=== PATIENT | female | born 1935 | race Caucasian/White ===

== ENCOUNTER → 2017-12-06 | Outpatient (CLI) | payer MEDICARE, BC ==
--- NOTE | 2017-12-08 07:09 | MM ---
Reason for exam: screening (asymptomatic). Last mammogram was performed 1 year and 1 month ago. History: Patient is postmenopausal and history of other cancer. Took estrogen for 15 years beginning at age 46. Took progesterone for 15 years beginning at age 46. Physical Findings: A clinical breast exam by your physician is recommended on an annual basis and results should be correlated with mammographic findings. MG 3D Screening Mammo W/Cad Bilateral CC and MLO view(s) were taken. XCCL view(s) were taken of the right breast. Prior study comparison: October 21, 2016, bilateral MG 3d screening mammo w/cad. September 23, 2015, bilateral MG screening mammo w CAD. No significant changes when compared with prior studies. ASSESSMENT: Benign, BI-RAD 2 RECOMMENDATION: Routine screening mammogram of both breasts in 1 year.
== END | disposition home or self-care (01) ==
LOC: RADMAMWWP 15:29
PROVIDERS: ATTEND Internal Medicine Geriatric Medicine
DX: Z12.31 Encounter for screening mammogram for malignant neoplasm of breast (principal)
CPT/HCPCS: 77063; 77067

== ENCOUNTER → 2018-06-28 | Outpatient (CLI) | payer MEDICARE, BC ==
--- NOTE | 2018-06-28 15:08 | CT ---
EXAMINATION TYPE: CT angio neck DATE OF EXAM: 06/28/2018 HISTORY: Carotid stenosis COMPARISON: None CT DLP: 326 mGycm. Automated Exposure Control for Dose Reduction was Utilized. TECHNIQUE: CTA scan of the neck is performed with IV Contrast, patient injected with 65 mL of Isovue 370, axial images are obtained, coronal and sagittal reformatted images are reviewed. Three-D recons tructed images are created on an independent workstation and reviewed. FINDINGS: Beam hardening artifact is present at the level of the mandible limiting this evaluation. Carotid/Vascular Structures: Left carotid: The left common carotid artery bifurcates into internal and external carotid arteries. The internal carotid artery extends to the skull base. The carotid bifurcation is unremarkable. No st enosis at the internal carotid arteries evident. Right carotid: Right common carotid artery is nearly obstructed at its origin. Small amount of contra st does appear to be present within the external carotid artery on the right suggesting there may be some minimal flow within the proximal portion of the carotid artery. No internal carotid artery flow is evident however. Some minimal retrograde flow is likely present at the skull base. Internal caroti d artery bifurcation is out of the [id number] on this exam. Vertebral arteries: The bilateral vertebral arteries are patent. IMPRESSION: 1. Patent bilateral vertebral arteries. 2. Patent left common carotid artery with a normal carotid bifurcation. Patent left internal carotid artery extends to the skull base. 3. Nearly completely obstructed common carotid artery on the right which terminates in the external c arotid artery on the right. No internal carotid artery flow is present on the right. 4. Some retrograde flow is likely present at the skull base within the distal right internal carotid artery.
== END | disposition home or self-care (01) ==
LOC: RADCTMAIN 09:31
PROVIDERS: ATTEND Internal Medicine Interventional Cardiology
DX: I65.21 Occlusion and stenosis of right carotid artery (principal)
CPT/HCPCS: 82565; 84520; 70498; 36415; Q9967

== ENCOUNTER → 2018-10-25 | Outpatient (CLI) | payer MEDICARE, BC ==
--- NOTE | 2018-10-25 22:55 | US ---
EXAMINATION TYPE: US kidneys/renal and bladder DATE OF EXAM: 10/25/2018 COMPARISON: CT abdomen October 14, 2014 CLINICAL HISTORY: N39.0 Frequent and or recurrent urinary tract infections EXAM MEASUREMENTS: Right Kidney: 10.6 x 5.0 x 47 cm Left Kidney: 9.9 x 5.0 x 4.8 cm Post Void Residual Volume: 64.1 mL Right Kidney: No hydronephrosis or masses seen Left Kidney: No hydronephrosis or masses seen Bladder: wnl as seen Bilateral Jets seen: no, only left jet was seen x 2 after 3 minute observation Normal Post Void Residual: no, as volume is greater than 50.0ml. There is no evidence for hydronephrosis at this point in time. No nephrolithiasis is seen. No geraldine s are identified. The urinary bladder is greatly distended. IMPRESSION: Abnormal post void residual noted. No hydronephrosis is seen bilaterally.
== END | disposition home or self-care (01) ==
LOC: RADUSWWP 16:24
PROVIDERS: ATTEND Urology
DX: N39.0 Urinary tract infection, site not specified (principal)
CPT/HCPCS: 76770

== ENCOUNTER → 2020-04-04 | Outpatient (CLI) | payer MEDICARE, BC ==
--- NOTE | 2020-04-04 12:36 | XR ---
EXAMINATION TYPE: XR lumbar spine 2 or 3V DATE OF EXAM: 04/04/2020 CLINICAL HISTORY: Low back pain with no known injury TECHNIQUE: Frontal and lateral images of the lumbar spine are obtained. COMPARISON: 10/04/2014 FINDINGS: Few punctate calculi overlying the right renal shadow measure up to 2 mm. Similar-appearing left upper quadrant calcifications and comparisons 2014 may be costochondral or splenic. There are 5 lumbar type vertebral bodies identified. Very minimal retrolisthesis of L2 on L3 and L3 on L4 are l ikely degenerative. There is also grade 1 anterolisthesis of L4 on L5. Multilevel facet arthropathy, intervertebral disc space narrowing, vacuum disc phenomenon and anterior osteophytes are seen. Athero sclerosis of the abdominal aorta is noted without aneurysmal dilatation on x-ray. Vertebral body heig hts are maintained. IMPRESSION: 1. Minimal retrolisthesis of L2 on L3 and L3 on L4, likely on a degenerative basis. Grade 1 anterolis thesis of L4 on L5 is likely degenerative. Moderate to severe multilevel degenerative disc disease of the lumbar spine. Neural foraminal narrowing suspected at L3-L4 and L4-5. This could be further eval uated with MRI. 2. Incidentally noted right-sided nephrolithiasis.
== END | disposition home or self-care (01) ==
LOC: RADXRMAIN 11:46
PROVIDERS: ATTEND Nurse Practitioner Family
DX: M51.36 Other intervertebral disc degeneration, lumbar region (principal)
CPT/HCPCS: 72100

== ENCOUNTER → 2021-03-05 | Outpatient (CLI) | payer MEDICARE, BC ==
--- NOTE | 2021-03-05 14:06 | US ---
EXAMINATION TYPE: US kidneys/renal and bladder DATE OF EXAM: 03/05/2021 COMPARISON: Renal ultrasound 2017. CT abdomen 2013 CLINICAL HISTORY: N39.0 Urinary Tract Infection. EXAM MEASUREMENTS: Right Kidney: 10.1 x 4.4 x 4.5 cm Left Kidney: 9.3 x 4.8 x 4.5 cm Right Kidney: No hydronephrosis or masses seen Left Kidney: No hydronephrosis or masses seen Bladder: wnl There is no evidence for hydronephrosis at this point in time. No nephrolithiasis is seen. No geraldine s are identified. The urinary bladder is not greatly distended. Bilateral ureteral jets are not see n. IMPRESSION: No hydronephrosis noted bilaterally.
== END | disposition home or self-care (01) ==
LOC: RADUSWWP 12:08
PROVIDERS: ATTEND Internal Medicine Geriatric Medicine
DX: N39.0 Urinary tract infection, site not specified (principal)
CPT/HCPCS: 76770

== ENCOUNTER 2022-11-19 08:46 | Emergency (ER) | payer MEDICARE, BC ==
[2022-11-19 09:05] VITALS: PULSE 64; RESP 18; TEMP 98.3
[2022-11-19] MEDS ORDERED: SODIUM CHLORIDE 0.9% 500 ML 500 ML IV STA (09:16)
--- NOTE | 2022-11-19 09:18 | ED ---
General Adult HPI - General Chief complaint: Fall Stated complaint: Hip Pain Time Seen by Provider: 11/19/22 09:00 Source: patient, EMS, RN notes reviewed, old records reviewed Mode of arrival: EMS Limitations: no limitations - History of Present Illness Initial comments: This is an 87-year-old female presents emergency department after having had a fall. Patient states she lost her balance even though she should walk. Patient states she landed on her right buttocks. Patient states she has full range of motion of her hip. Patient denies hitting her head patient denies any neck pain patient denies numbness weakness. Patient's any back pain or chest pain. Patient denies any abdominal pain. Patient denies any other extremity pain. - Related Data Home Medications Medication Instructions Recorded Confirmed Clopidogrel [Plavix] 75 mg PO DAILY@79904/20/15 11/19/22 hydroCHLOROthiazide 25 mg PO DAILY@79909/19/15 11/19/22 Albuterol Nebulized [Ventolin 2.5 mg INHALATION 11/19/22 11/19/22 Nebulized] RT-QID@08,12,16,20 Budesonide [Pulmicort] 0.5 mg INHALATION RT-BID@11/19/22 11/19/22 Calcium Carbonate [Tums] 500 mg PO DAILY@79911/19/22 11/19/22 Cyanocobalamin (Vitamin B-12) 1,000 mcg PO DAILY@79911/19/22 11/19/22 [Vitamin B-12] DULoxetine HCL [Cymbalta] 30 mg PO DAILY@79911/19/22 11/19/22 Escitalopram [Lexapro] 5 mg PO DAILY@79911/19/22 11/19/22 Irbesartan [Avapro] 75 mg PO DAILY@79911/19/22 11/19/22 Lactobacillus Acidophilus 1 cap PO DAILY@79911/19/22 11/19/22 [Acidophilus Probiotic] Levocetirizine Dihydrochloride 5 mg PO HS@199911/19/22 11/19/22 Levothyroxine Sodium [Synthroid] 100 mcg PO DAILY@79911/19/22 11/19/22 Melatonin 5 mg PO HS PRN 11/19/22 11/19/22 Metoprolol Succinate [Metoprolol 25 mg PO DAILY@0800 11/19/22 11/19/22 Succinate ER] Montelukast [Singulair] 10 mg PO HS 11/19/22 11/19/22 Nitrofurantoin Monohyd/M-Cryst 100 mg PO BID@0900,2100 11/19/22 11/19/22 [Macrobid] Pantoprazole Sodium 20 mg PO DAILY@0800 11/19/22 11/19/22 Rivastigmine Tartrate [Exelon] 3 mg PO BID@0800,1700 11/19/22 11/19/22 Rosuvastatin [Crestor] 20 mg PO DAILY@0800 11/19/22 11/19/22 Ubidecarenone [Coenzyme Q10] 50 mg PO DAILY@0800 11/19/22 11/19/22 Allergies Allergy/AdvReac Type Severity Reaction Status Date / Time No Known Allergies Allergy Verified 11/19/22 12:18 Review of Systems ROS Statement: Those systems with pertinent positive or pertinent negative responses have been documented in the HPI. ROS Other: All systems not noted in ROS Statement are negative. Past Medical History Past Medical History: Dementia, Hyperlipidemia, Hypertension, Myocardial Infarction ([place]), Thyroid Disorder Additional Past Medical History / Comment(s): wound R leg from fall, cardiac stents placed, TIA's Last Myocardial Infarction Date:: 2007 History of Any Multi-Drug Resistant Organisms: None Reported Past Surgical History: Appendectomy, Heart Catheterization With Stent, Tonsillec roge Past Anesthesia/Blood Transfusion Reactions: No Reported Reaction Date of Last Stent Placement:: 2007 Past Psychological History: No Psychological Hx Reported Smoking Status: Former smoker Past Alcohol Use History: Rare Past Drug Use History: None Reported - Past Family History Sister(s) Family Medical History: Cancer General Exam - General Exam Comments Initial Comments: GENERAL: Patient is well-developed and well-nourished. Patient is nontoxic and well- hydrated and is in mild distress. ENT: Neck is soft and supple. No significant lymphadenopathy is noted. Oropharynx is clear. Moist mucous membranes. Neck has full range of motion without eliciting any pain. EYES: The sclera were anicteric and conjunctiva were pink and moist. Extraocular movements were intact and pupils were equal round and reactive to light. Eyelids were unremarkable. PULMONARY: Unlabored respirations. Good breath sounds bilaterally. No audible rales rhonchi or wheezing was noted. CARDIOVASCULAR: There is a regular rate and rhythm without any murmurs gallops or rubs. ABDOMEN: Soft and nontender with normal bowel sounds. SKIN: Skin is clear with no lesions or rashes and otherwise unremarkable. NEUROLOGIC: Patient is alert and oriented x3. Cranial nerves II through XII are grossly intact. Motor and sensory are also intact. Normal speech, volume and content. Symmetrical smile. MUSCULOSKELETAL: Normal extremities with adequate strength and full range of motion. Patient has full range of motion at the hips but there is some tenderness when I palpate the right buttocks. LYMPHATICS: No significant lymphadenopathy is noted PSYCHIATRIC: Normal psychiatric evaluation. Limitations: no limitations Course Vital Signs 11/19/22 11/19/22 09:02 10:20 Temperature 98.3 F Pulse Rate 64 Respiratory 18 Rate Blood Pressure 147/85 Blood Pressure 178/79 [Left Arm Sitting] Blood Pressure 170/102 [Left Arm Standing] Blood Pressure 187/88 [Left Arm Supine] O2 Sat by Pulse 97 Oximetry Medical Decision Making - Medical Decision Making EKG as interpreted by myself. EKG shows a sinus rhythm at 63 bpm IA interval is 195 QRS is 93 QT intervals 434 QTC is 441 per patient's EKG shows no ST segment elevation or depression. Was pt. sent in by a medical professional or institution (BRODY Torres, HISTOLOGY SUPERVISOR, urgent care, hospital, or fdc...) When possible be specific @ -No Did you speak to anyone other than the patient for history (EMS, parent, family, police, friend...)? What history was obtained from this source @ -EMS gave me most of the history on this patient. Did you review nursing and triage notes (agree or disagree)? Why? @ -I reviewed and agree with nursing and triage notes Were old charts reviewed (outside hosp., previous admission, EMS record, old EKG, old radiological studies, urgent care reports/EKG's, fdc records)? Report findings @ -No old charts were reviewed Differential Diagnosis (chest pain, altered mental status, abdominal pain women, abdominal pain men, vaginal bleeding, weakness, fever, dyspnea, syncope, headache, dizziness, GI bleed, back pain, seizure, CVA, palpatations, mental health)? @ -Hip fracture, contusion, arrhythmia, orthostatic, ataxia is is not a complete list. EKG interpreted by me (3pts min.). @ -As above X-rays interpreted by me (1pt min.). @ -Hip x-ray was interpreted by myself. It showed no acute fracture. Chest x- ray was also interpreted by myself. It showed no acute abnormality. CT interpreted by me (1pt min.). @ -None done U/S interpreted by me (1pt. min.). @ -None done What testing was considered but not performed or refused? (CT, X-rays, U/S, labs)? Why? @ -None What meds were considered but not given or refused? Why? @ -None Did you discuss the management of the patient with other professionals (professionals i.e. , PA, HISTOLOGY SUPERVISOR, lab, RT, psych nurse, social welfare clerk, rotor winder, teacher, commissioned defence force officer, case preparer and liner)? Give summary @ -No Was smoking cessation discussed for >3mins.? @ -No Was critical care preformed (if so, how long)? @ -No Were there social determinants of health that impacted care today? How? (Homelessness, low income, unemployed, alcoholism, drug addiction, transportation, low edu. Level, literacy, decrease access to med. care, long term, rehab)? @ -No Was there de-escalation of care discussed even if they declined (Discuss DNR or withdrawal of care, Hospice)? DNR status @ -No What co-morbidities impacted this encounter? (DM, HTN, Smoking, COPD, CAD, Cancer, CVA, ARF, Chemo, Hep., AIDS, mental health diagnosis, sleep apnea, morbid obesity)? @ -None Was patient admitted / discharged? Hospital course, mention meds given and route, prescriptions, significant lab abnormalities, going to OR and other pertinent info. @ -Patient will be discharged home. Patient had some hypomagnesemia she was given magnesium sulfate in the emergency department. Patient had a negative x- ray of hip so she got up and ambulated without problem. Undiagnosed new problem with uncertain prognosis? @ -No Drug Therapy requiring intensive monitoring for toxicity (Heparin, Nitro, Insulin, Cardizem)? @ -No Were any procedures done? @ -No Diagnosis/symptom? @ -Hip contusion Acute, or Chronic, or Acute on Chronic? @ -Acute Uncomplicated (without systemic symptoms) or Complicated (systemic symptoms)? @ -Uncomplicated Side effects of treatment? @ -No Exacerbation, Progression, or Severe Exacerbation? @ -No Poses a threat to life or bodily function? How? (Chest pain, [place], [place], pneumonia, PE, COPD, DKA, ARF, appy, cholecystitis, CVA, Diverticulitis, Homicidal, Suicidal, threat to staff... and all critical care pts) @ -No Diagnosis/symptom? @ -Hypomagnesemia Acute, or Chronic, or Acute on Chronic? @ -Acute Uncomplicated (without systemic symptoms) or Complicated (systemic symptoms)? @ -Uncomplicated Side effects of treatment? @ -none Exacerbation, Progression, or Severe Exacerbation] @ -no Poses a threat to life or bodily function? @ -no - Lab Data Result diagrams: 11/19/22 09:27 11/19/22 09:27 Lab Results 11/19/22 11/19/22 11/19/22 Range/Units 09:27 09:27 09:27 WBC 6.7 (3.8-10.6) k/uL RBC 4.27 (3.80-5.40) m/uL Hgb 12.9 (11.4-16.0) gm/dL Hct 37.4 (34.0-46.0) % MCV 87.7 (80.0-100.0) fL MCH 30.3 (25.0-35.0) pg MCHC 34.6 (31.0-37.0) g/dL RDW 14.1 (11.5-15.5) % Plt Count 146 L (150-450) k/uL MPV 8.5 Neutrophils % 82 % Lymphocytes % 8 % Monocytes % 6 % Eosinophils % 2 % Basophils % 1 % Neutrophils # 5.4 (1.3-7.7) k/uL Lymphocytes # 0.5 L (1.0-4.8) k/uL Monocytes # 0.4 (0-1.0) k/uL Eosinophils # 0.2 (0-0.7) k/uL Basophils # 0.1 (0-0.2) k/uL Sodium 139 (137-145) mmol/L Potassium 3.4 L (3.5-5.1) mmol/L Chloride 104 (98-107) mmol/L Carbon Dioxide 31 H (22-30) mmol/L Anion Gap 4 mmol/L BUN 18 H (7-17) mg/dL Creatinine 0.80 (0.52-1.04) mg/dL Est GFR (CKD-EPI)AfAm 77 (>60 ml/min/1.73 sqM) Est GFR (CKD-EPI)NonAf 67 (>60 ml/min/1.73 sqM) Glucose 125 H (74-99) mg/dL Calcium 9.2 (8.4-10.2) mg/dL Magnesium 1.4 L (1.6-2.3) mg/dL Total Bilirubin 0.8 (0.2-1.3) mg/dL AST 17 (14-36) U/L ALT 10 (4-34) U/L Alkaline Phosphatase 83 (38-126) U/L Total Protein 6.0 L (6.3-8.2) g/dL Albumin 3.6 (3.5-5.0) g/dL Urine Color Yellow Urine Appearance Cloudy H (Clear) Urine pH 6.5 (5.0-8.0) Ur Specific [place] 1.015 (1.001-1.035) Urine Protein Negative (Negative) Urine Glucose (UA) Negative (Negative) Urine Ketones Negative (Negative) Urine Blood Negative (Negative) Urine Nitrite Negative (Negative) Urine Bilirubin Negative (Negative) Urine Urobilinogen <2.0 (<2.0) mg/dL Ur Leukocyte Esterase Small H (Negative) Urine RBC 3 (0-5) /hpf Urine WBC 4 (0-5) /hpf Ur Squamous Epith Cells 5 H (0-4) /hpf Amorphous Sediment Rare H (None) /hpf Urine Bacteria Occasional H (None) /hpf Urine Mucus Rare H (None) /hpf Disposition Clinical Impression: Fall, Hypomagnesemia, Contusion, hip Disposition: HOME SELF-CARE Instructions (If sedation given, give patient instructions): Fall Prevention for Older Adults (ED), Hypomagnesemia (ED) Is patient prescribed a controlled substance at d/c from ED?: No Referrals: Carlo Davey MD [Primary Care Provider] - 1-2 days Time of Disposition: 12:49
[2022-11-19 09:36] LABS: Basophils # (A) 0.1 k/uL (0-0.2); Basophils % (A) 1 %; Eosinophils # (A) 0.2 k/uL (0-0.7); Eosinophils % (A) 2 %; HCT 37.4 % (34.0-46.0); HGB 12.9 gm/dL (11.4-16.0); Lymphocytes # (A) 0.5 k/uL (1.0-4.8); Lymphocytes % (A) 8 %; MCH 30.3 pg (25.0-35.0); MCHC 34.6 g/dL (31.0-37.0); MCV 87.7 fL (80.0-100.0); Mean Platelet Volume 8.5; Monocytes # (A) 0.4 k/uL (0-1.0); Monocytes % (A) 6 %; Neutrophils # (A) 5.4 k/uL (1.3-7.7); Neutrophils % (A) 82 %; Platelet Count 146 k/uL (150-450); RBC 4.27 m/uL (3.80-5.40); RDW 14.1 % (11.5-15.5); WBC 6.7 k/uL (3.8-10.6)
[2022-11-19 09:59] LABS: Albumin 3.6 g/dL (3.5-5.0); Calcium 9.2 mg/dL (8.4-10.2); Magnesium 1.4 mg/dL (1.6-2.3); Potassium 3.4 mmol/L (3.5-5.1); Total Bilirubin 0.8 mg/dL (0.2-1.3)
--- NOTE | 2022-11-19 10:18 | XR ---
EXAMINATION TYPE: XR Hip RT and AP Pelvis DATE OF EXAM: 11/19/2022 10:10 AM INDICATION: Patient age:Female; 87 years old; Reason for study: RT HIP PAIN; PHH. COMPARISON: None. TECHNIQUE: The right hip was examined in the frontal and lateral projections and a AP pelvis. FINDINGS: Diffuse bone demineralization which limits evaluation.No evidence of any acute osseous path ology, joint dislocation, or soft tissue swelling. Mild bilateral medial joint space narrowing of the hips with acetabular sclerosis and marginal osteophytosis. Multilevel degenerative changes of visual ized spine. Vascular sclerosis. Soft tissue benign calcifications. IMPRESSION: 1. No acute osseous pathology. 2. Mild osteoarthritic changes of both hips.
[2022-11-19 10:21] VITALS: BP 187/88
--- NOTE | 2022-11-19 10:23 | XR ---
EXAMINATION TYPE: XR chest 2V DATE OF EXAM: 11/19/2022 10:12 AM COMPARISON: Chest radiographs from 05/20/2020 TECHNIQUE: XR chest 2V Frontal and lateral views of the chest. CLINICAL INDICATION:Female, 87 years old with history of Chest Pain; FINDINGS: Lungs/Pleura: There is no evidence of pleural effusion or pneumothorax. Patchy right midlung airspace opacity. Hyperinflation. Pulmonary vascularity: Unremarkable. Heart/mediastinum: Cardiomediastinal silhouette is enlarged and stable. Atherosclerotic calcificatio ns are seen in the aorta. Musculoskeletal: No acute osseous pathology. IMPRESSION: 1. Patchy right midlung airspace opacity which may represent atelectasis versus infiltrate. 2. COPD changes.
[2022-11-19 11:26] LABS: Amorphous Sediment,Urine Rare /hpf; Appearance,Urine Cloudy (Clear); Bacteria,Urine Occasional /hpf; Bilirubin,Urine Negative (Negative); Blood,Urine Negative (Negative); Color,Urine Yellow; Glucose,Urine (UA) Negative (Negative); Ketones,Urine Negative (Negative); Leukocyte Esterase,Urine Small (Negative); Mucus,Urine Rare /hpf; Nitrite,Urine Negative (Negative); PH, Urine 6.5 (5.0-8.0); Protein,Urine Negative (Negative); RBC,Urine 3 /hpf (0-5); Specific Gravity,Urine 1.015 (1.001-1.035); Squamous Epithelial Cell,Urine 5 /hpf (0-4); Urobilinogen,Urine <2.0 mg/dL (<2.0); WBC,Urine 4 /hpf (0-5)
[2022-11-19] MEDS ORDERED: MAGNESIUM SULFATE-D5W PMX 1 GM in DEXTROSE/WATER 1 100ML.BAG IVPB ONE (11:30)
== END 2022-11-19 13:00 | disposition home or self-care (01) ==
LOC: EC 08:46
DX: S70.01XA Contusion of right hip, initial encounter (principal); E78.5 Hyperlipidemia, unspecified; I10 Essential (primary) hypertension; I25.2 Old myocardial infarction; E07.9 Disorder of thyroid, unspecified; Z87.891 Personal history of nicotine dependence; Z79.899 Other long term (current) drug therapy; W01.198A Fall on same level from slipping, tripping and stumbling with subsequent striking against other object, initial encounter; Y92.009 Unspecified place in unspecified non-institutional (private) residence as the place of occurrence of the external cause
CPT/HCPCS: 99285; 96365; 36415; 93005; 80053; 83735; 85025; 81001; 73502; 71046; J3475

== ENCOUNTER 2023-02-02 18:01 | Emergency (ER) | payer MEDICARE, BC ==
[2023-02-02 18:10] VITALS: BP 146/71; PULSE 74; RESP 18; TEMP 98.1
--- NOTE | 2023-02-02 19:04 | XR ---
EXAMINATION TYPE: XR elbow complete LT DATE OF EXAM: 02/02/2023 6:52 PM INDICATION: Patient age:Female; 87 years old; Reason for study: fall injury; COMPARISON: None TECHNIQUE: The left elbow was examined in AP, lateral, and oblique projections. FINDINGS: No evidence of any acute osseous pathology, joint dislocation, or soft tissue swelling is n oted. No evidence of joint effusion is present. Enthesophyte off the olecranon process which has become unattached. IMPRESSION: No evidence of acute fracture.
--- NOTE | 2023-02-02 19:21 | ED ---
Fall HPI - General Chief Complaint: Fall Stated Complaint: fall Time Seen by Provider: 02/02/23 18:26 Source: EMS Mode of arrival: EMS - History of Present Illness MD Complaint: fall -: hour(s) Fall From: standing When Fall Occurred: 1 hour PLANT TECH Fall Witnessed: no Place Fall Occurred: home Loss of Consciousness: none Prolonged Down Time?: no Symptoms Prior to Fall: none - Related Data Home Medications Medication Instructions Recorded Confirmed Clopidogrel [Plavix] 75 mg PO DAILY@79904/20/15 02/02/23 hydroCHLOROthiazide 25 mg PO DAILY@79909/19/15 02/02/23 Albuterol Nebulized [Ventolin 2.5 mg INHALATION 11/19/22 02/02/23 Nebulized] RT-QID@,, Budesonide [Pulmicort] 0.5 mg INHALATION RT-BID@799,199911/19/22 02/02/23 Calcium Carbonate [Tums] 500 mg PO DAILY@79911/19/22 02/02/23 Cyanocobalamin (Vitamin B-12) 1,000 mcg PO DAILY@79911/19/22 02/02/23 [Vitamin B-12] DULoxetine HCL [Cymbalta] 30 mg PO DAILY@79911/19/22 02/02/23 Escitalopram [Lexapro] 5 mg PO DAILY@79911/19/22 02/02/23 Irbesartan [Avapro] 75 mg PO DAILY@79911/19/22 02/02/23 Lactobacillus Acidophilus 1 cap PO DAILY@79911/19/22 02/02/23 [Acidophilus Probiotic] Levocetirizine Dihydrochloride 5 mg PO HS@199911/19/22 02/02/23 Levothyroxine Sodium [Synthroid] 100 mcg PO DAILY@79911/19/22 02/02/23 Metoprolol Succinate [Metoprolol 25 mg PO DAILY@79911/19/22 02/02/23 Succinate ER] Montelukast [Singulair] 10 mg PO DAILY@79911/19/22 02/02/23 Pantoprazole Sodium 20 mg PO DAILY@79911/19/22 02/02/23 Rivastigmine Tartrate [Exelon] 3 mg PO BID@0800,1700 11/19/22 02/02/23 Rosuvastatin [Crestor] 20 mg PO DAILY@0800 11/19/22 02/02/23 Ubidecarenone [Coenzyme Q10] 50 mg PO DAILY@0800 11/19/22 02/02/23 Allergies Allergy/AdvReac Type Severity Reaction Status Date / Time cephalexin [From Keflex] Allergy Unknown Verified 02/02/23 18:33 Review of Systems ROS Statement: Those systems with pertinent positive or pertinent negative responses have been documented in the HPI. ROS Other: All systems not noted in ROS Statement are negative. Past Medical History Past Medical History: Dementia, Hyperlipidemia, Hypertension, Myocardial Infarction ([place]), Thyroid Disorder Additional Past Medical History / Comment(s): wound R leg from fall, cardiac stents placed, TIA's Last Myocardial Infarction Date:: 2007 History of Any Multi-Drug Resistant Organisms: None Reported Past Surgical History: Appendectomy, Heart Catheterization With Stent, Tonsillectomy Past Anesthesia/Blood Transfusion Reactions: No Reported Reaction Date of Last Stent Placement:: 2007 Past Psychological History: No Psychological Hx Reported Smoking Status: Former smoker Past Alcohol Use History: Rare Past Drug Use History: None Reported - Past Family History Sister(s) Family Medical History: Cancer General Exam Limitations: no limitations Course Vital Signs 02/02/23 18:02 Temperature 98.1 F Pulse Rate 74 Respiratory 18 Rate Blood Pressure 146/71 O2 Sat by Pulse 97 Oximetry Medical Decision Making - EKG Data -: EKG Interpreted by Oh EKG shows normal: sinus rhythm, axis (Left axis deviation), intervals (MT interval 205 ms, borderline for first-degree AV block. QRS duration 80 ms, QTC 415 milliseconds both normal.), QRS complexes (Low-voltage QRS complex) Rate: normal (Rate 71 bpm) Interpretation: other (Possible pulmonary disease pattern) Disposition Clinical Impression: Fall, Head injury, Skin tear of elbow without complication Disposition: HOME SELF-CARE Condition: Good Instructions (If sedation given, give patient instructions): Fall Prevention for Older Adults (ED), Skin Tear (ED), Head Injury (ED) Is patient prescribed a controlled substance at d/c from ED?: No Referrals: Carlo Davey MD [Primary Care Provider] - 1-2 days
--- NOTE | 2023-02-02 19:25 | CT ---
EXAMINATION TYPE: CT brain wo con CT DLP: 1137.4 mGycm, Automated exposure control for dose reduction was used. DATE OF EXAM: 02/02/2023 7:05 PM COMPARISON: 06/02/2011. CLINICAL INDICATION:Female, 87 years old with history of fall injury, ams, weakness TECHNIQUE: Brain: Axial CT images of the brain were obtained with coronal and sagittal reformats created and rev iewed. Contrast used: None. Oral contrast used: None. FINDINGS: Brain: Extra-axial spaces: No abnormal extra-axial fluid collections. Ventricular system: Dilatation in proportion to cerebral atrophy. These are unchanged from 2010 Cerebral parenchyma: Cerebral atrophy. No acute intraparenchymal hemorrhage or mass effect. The sood -white junction is well differentiated. Scattered hypoattenuating areas are seen within the white mat ter. Cerebellum: Unremarkable. Mass effect: No evidence of midline shift. Intracranial vasculature: Atherosclerotic calcifications of the intracranial vessels. Soft tissues: Normal. Calvarium/osseous structures: No depressed skull fracture. Paranasal sinuses and mastoid air cells: Mild scattered paranasal sinus disease. Visualized orbits: Left aphakia. IMPRESSION: 1. No acute intracranial process. 2. Ventriculomegaly unchanged from 2010. 3. Nonspecific white matter changes, likely secondary to chronic small vessel ischemic disease.
[2023-02-02] MEDS ORDERED: TOPICAL SKIN ADHESIVE 1 EACH AMP TOPICAL ONE (19:37)
--- NOTE | 2023-02-02 20:27 | XR ---
EXAMINATION TYPE: XR Hip Complete RT DATE OF EXAM: 02/02/2023 8:00 PM INDICATION: Patient age:Female; 87 years old; Reason for study: fall injury; COMPARISON: None. TECHNIQUE: The right hip was examined in the frontal and lateral projections and a AP pelvis. FINDINGS: No evidence for acute process, joint dislocation or significant soft tissue swelling. Osteo phyte formation of the superior acetabulum of the hips. IMPRESSION: 1. No evidence for acute process. 2. Mild hip osteoarthrosis.
== END 2023-02-02 21:06 | disposition home or self-care (01) ==
LOC: EC 18:01
DX: S51.012A Laceration without foreign body of left elbow, initial encounter (principal); E78.5 Hyperlipidemia, unspecified; I10 Essential (primary) hypertension; I25.2 Old myocardial infarction; E07.9 Disorder of thyroid, unspecified; Z86.73 Personal history of transient ischemic attack (TIA), and cerebral infarction without residual deficits; Z87.891 Personal history of nicotine dependence; Z88.1 Allergy status to other antibiotic agents; Z79.890 Hormone replacement therapy; Z79.899 Other long term (current) drug therapy; Z79.51 Long term (current) use of inhaled steroids; W18.30XA Fall on same level, unspecified, initial encounter; Y92.009 Unspecified place in unspecified non-institutional (private) residence as the place of occurrence of the external cause
CPT/HCPCS: 70450; 73502; 93005; 99285

== ENCOUNTER → 2023-02-09 | Outpatient (CLI) | payer MEDICARE, BC ==
--- NOTE | 2023-02-09 15:34 | XR ---
EXAMINATION TYPE: XR thoracic spine 2V DATE OF EXAM: 02/09/2023 COMPARISON: None HISTORY: Back pain and leg weakness TECHNIQUE: 3 view thoracic spine FINDINGS: There are 12 thoracic type vertebral bodies. Pedicles are intact. Spondylosis is present. M ild disc space narrowing is present. Vertebral body heights are preserved. Alignment appears preserve d. IMPRESSION: 1. No acute osseous abnormalities thoracic spine.
--- NOTE | 2023-02-09 15:36 | XR ---
EXAMINATION TYPE: XR lumbar spine 2 or 3V DATE OF EXAM: 02/09/2023 COMPARISON: 04/04/2020 HISTORY: Low back pain and leg weakness TECHNIQUE: 3 view lumbar spine FINDINGS: 5 lumbar type vertebral bodies. Pedicles are intact. There is loss of disc height to the kelly mbar spine. Spondylosis is present. Vertebral body alignment is preserved. IMPRESSION: 1. Loss of disc height throughout the lumbar spine.
== END | disposition home or self-care (01) ==
LOC: RADXRMAIN 15:04
PROVIDERS: ATTEND Internal Medicine Geriatric Medicine
DX: M51.36 Other intervertebral disc degeneration, lumbar region (principal); M48.07 Spinal stenosis, lumbosacral region
CPT/HCPCS: 72070; 72100

== ENCOUNTER 2023-02-11 21:37 | Inpatient (IN) | payer MEDICARE, BC ==
[2023-02-11] MEDS ORDERED: SODIUM CHLORIDE 0.9% 500 ML 500 ML IV STA (21:44)
[2023-02-11] MEDS ORDERED: DIPH,PERTUS(ACELL)TETVAC-LF 0.5 ML VIAL IM ONE (21:44)
[2023-02-11 22:06] LABS: Basophils % (A) 0 %; Eosinophils # (A) 0.2 k/uL (0-0.7); Eosinophils % (A) 2 %; HCT 36.5 % (34.0-46.0); HGB 12.2 gm/dL (11.4-16.0); Lymphocytes # (A) 0.6 k/uL (1.0-4.8); Lymphocytes % (A) 10 %; MCH 28.8 pg (25.0-35.0); MCHC 33.5 g/dL (31.0-37.0); MCV 85.9 fL (80.0-100.0); Mean Platelet Volume 8.1; Monocytes # (A) 0.4 k/uL (0-1.0); Monocytes % (A) 7 %; Neutrophils # (A) 4.9 k/uL (1.3-7.7); Neutrophils % (A) 78 %; Platelet Count 176 k/uL (150-450); RBC 4.25 m/uL (3.80-5.40); RDW 14.8 % (11.5-15.5); WBC 6.3 k/uL (3.8-10.6)
[2023-02-11 22:14] LABS: Partial Thromboplastin Time 23.6 sec (22.0-30.0); Prothrombin Time 10.7 sec (9.0-12.0)
--- NOTE | 2023-02-11 22:19 | ED ---
General Adult HPI - General Stated complaint: Fall Time Seen by Provider: 02/11/23 21:44 Source: patient, EMS, RN notes reviewed, old records reviewed Mode of arrival: EMS - History of Present Illness Initial comments: Patient is an 87 year female presents to the department after a fall. Patient is on blood thinners. Presents from her nursing facility after a fall. Patient is on Plavix. Unknown loss conscious. He cannot recall the fall.: Her left side. Does have a skin tear over her left elbow. Complaining of left hip pain, left femur pain. Endorses some mild neck pain which states is chronic. Denies chest pain, shortness of breath, abdominal pain, nausea, vomiting. No fevers, chills, sick contacts. No other acute complaints at this time. Was not on the ground for more than 20-30 minutes. Presents for further evaluation. Has been having increased falls lately. - Related Data Home Medications Medication Instructions Recorded Confirmed Clopidogrel [Plavix] 75 mg PO DAILY@79904/20/15 02/02/23 hydroCHLOROthiazide 25 mg PO DAILY@79909/19/15 02/02/23 Albuterol Nebulized [Ventolin 2.5 mg INHALATION 11/19/22 02/02/23 Nebulized] RT-QID@08,12,16,20 Budesonide [Pulmicort] 0.5 mg INHALATION RT-BID@11/19/22 02/02/23 Calcium Carbonate [Tums] 500 mg PO DAILY@79911/19/22 02/02/23 Cyanocobalamin (Vitamin B-12) 1,000 mcg PO DAILY@79911/19/22 02/02/23 [Vitamin B-12] DULoxetine HCL [Cymbalta] 30 mg PO DAILY@79911/19/22 02/02/23 Escitalopram [Lexapro] 5 mg PO DAILY@79911/19/22 02/02/23 Irbesartan [Avapro] 75 mg PO DAILY@79911/19/22 02/02/23 Lactobacillus Acidophilus 1 cap PO DAILY@79911/19/22 02/02/23 [Acidophilus Probiotic] Levocetirizine Dihydrochloride 5 mg PO HS@199911/19/22 02/02/23 Levothyroxine Sodium [Synthroid] 100 mcg PO DAILY@00 11/19/22 02/02/23 Metoprolol Succinate [Metoprolol 25 mg PO DAILY@0800 11/19/22 02/02/23 Succinate ER] Montelukast [Singulair] 10 mg PO DAILY@0800 11/19/22 02/02/23 Pantoprazole Sodium 20 mg PO DAILY@0800 11/19/22 02/02/23 Rivastigmine Tartrate [Exelon] 3 mg PO BID@0800,1700 11/19/22 02/02/23 Rosuvastatin [Crestor] 20 mg PO DAILY@0800 11/19/22 02/02/23 Ubidecarenone [Coenzyme Q10] 50 mg PO DAILY@0800 11/19/22 02/02/23 Allergies Allergy/AdvReac Type Severity Reaction Status Date / Time cephalexin [From Keflex] Allergy Unknown Verified 02/02/23 18:33 Review of Systems ROS Statement: Those systems with pertinent positive or pertinent negative responses have been documented in the HPI. Review of Systems: CONST: Denies fever EYES: Denies blurry vision ENT: Denies nasal congestion C/V: Denies Chest pain RESP: Denies shortness of breath GI: Denies abdominal pain : Denies dysuria SKIN: Endorses skin tear MSK: Endorses joint pain NEURO: Denies headache ROS Other: All systems not noted in ROS Statement are negative. Past Medical History Past Medical History: Dementia, Hyperlipidemia, Hypertension, Myocardial Infarction (IA), Thyroid Disorder Additional Past Medical History / Comment(s): wound R leg from fall, cardiac stents placed, TIA's Last Myocardial Infarction Date:: 2007 History of Any Multi-Drug Resistant Organisms: None Reported Past Surgical History: Appendectomy, Heart Catheterization With Stent, Tonsillectomy Past Anesthesia/Blood Transfusion Reactions: No Reported Reaction Date of Last Stent Placement:: 2007 Past Psychological History: No Psychological Hx Reported Smoking Status: Former smoker Past Alcohol Use History: Rare Past Drug Use History: None Reported - Past Family History Sister(s) Family Medical History: Cancer General Exam - General Exam Comments Initial Comments: General: Appears in no acute distress. HEAD: Normal with no signs of head trauma. Negative [place] sign, negative raccoon eyes. EYES: PERRLA, EOMI, conjunctiva normal, no discharge. Pupils are 3 mm and equal bilaterally. ENT: Hearing grossly intact, normal oropharynx.Cervical collar in place. RESPIRATORY: Clear breath sounds bilaterally. No wheezes, rales, or rhonchi. C/V: Regular rate and rhythm. S1 and S2 auscultated, no edema, peripheral pulses 2+ and intact throughout ABD: Abd is soft, nontender, nondistended EXT: Decreased range of motion of the left hip secondary to mild pain. No obvious deformity. No external rotation or shortening. Tenderness over the anterior aspect of the left femur as well. No midline thoracic or lumbar spine tenderness to palpation. All this is stable. Patient does have mild midline cervical spine tenderness to palpation. No obvious extremity injuries otherwise. SKIN: Skin tear located over the posterior left elbow. Not actively bleeding. NEURO: Alert and oriented x 4. Cranial nerves II-XII intact. No focal sensory or strength deficits. GCS of 15. NIH of 0. Course Vital Signs 02/11/23 21:40 Temperature 98.4 F Pulse Rate 64 Respiratory 18 Rate Blood Pressure 176/84 O2 Sat by Pulse 95 Oximetry Medical Decision Making - Medical Decision Making Was pt. sent in by a medical professional or institution (, PA, UTILITY BILL COMPLAINTS INVESTIGATOR, urgent care, hospital, or senior living...) When possible be specific @ -Sent in by nursing facility [facility]. Did you speak to anyone other than the patient for history (EMS, parent, family, police, friend...)? What history was obtained from this source @ -No Did you review nursing and triage notes (agree or disagree)? Why? @ -I reviewed and agree with nursing and triage notes Were old charts reviewed (outside hosp., previous admission, EMS record, old EKG, old radiological studies, urgent care reports/EKG's, senior living records)? Report findings @ -No old charts were reviewed Differential Diagnosis (chest pain, altered mental status, abdominal pain women, abdominal pain men, vaginal bleeding, weakness, fever, dyspnea, syncope, headache, dizziness, GI bleed, back pain, seizure, CVA, palpatations, mental health, musculoskeletal)? @ -Muscle strain, muscle strain, bone fracture, hip fracture, intracranial bleed, intracranial injury, cervical spine injury, dehydration, infection, ACS. This list is not all inclusive. EKG interpreted by me (3pts min.). @ -As above X-rays interpreted by me (1pt min.). @ -Remarkable for impacted left subcapital fracture of the femur CT interpreted by me (1pt min.). @ -CT brain and C-spine negative for any obvious acute treatment injury. U/S interpreted by me (1pt. min.). @ -None done What testing was considered but not performed or refused? (CT, X-rays, U/S, labs)? Why? @ -None What meds were considered but not given or refused? Why? @ -None Did you discuss the management of the patient with other professionals (professionals i.e. , PA, UTILITY BILL COMPLAINTS INVESTIGATOR, lab, RT, psych nurse, social media developer, staff pharmacist hospital, teacher, credit officer, caser)? Give summary @ -No Was smoking cessation discussed for >3mins.? @ -No Was critical care preformed (if so, how long)? @ -No Were there social determinants of health that impacted care today? How? (Homelessness, low income, unemployed, alcoholism, drug addiction, transportation, low edu. Level, literacy, decrease access to med. care, assisted, rehab)? @ -No Was there de-escalation of care discussed even if they declined (Discuss DNR or withdrawal of care, Hospice)? DNR status @ -No What co-morbidities impacted this encounter? (DM, HTN, Smoking, COPD, CAD, Cancer, CVA, ARF, Chemo, Hep., AIDS, mental health diagnosis, sleep apnea, morbid obesity)? @ -Plavix use Was patient admitted / discharged? Hospital course, mention meds given and route, prescriptions, significant lab abnormalities, going to OR and other pertinent info. @ -Based on the patient's presentation and physical exam, patient presents as a suspected fall from standing on Plavix. No loss of consciousness. Complains of left hip pain, left elbow pain at the site of the skin tear. No other obvious injuries. Presents for further evaluation at this time. Patient will be administered a tetanus booster, as well as a small fluid bolus. Did offer her morphine which she refused at this time. She declines pain meds at this time. We will obtain CT imaging of brain and C-spine as well as basic labs, x-rays of the chest, left hip, left elbow. She was in agreement this plan. Vital signs are within acceptable limits. Patient's labs are within acceptable limits. Patient's imaging negative for any acute intracranial or cervical spine process. C-collar was removed. X-rays were remarkable for a left femoral impacted subcapital fracture. After the patient and family. She will be admitted. I spoke with the orthopedic surgeon regional dedicated truck driver Dr. You who accepted the admission. I consulted Dr. Gautam of [facility] covers for Dr. Davey for medical management. Patient still refuses pain medications at this time. She'll be admitted. Remains neurovascular intact throughout. Per Dr. You, hold Plavix, no OR tomorrow. Undiagnosed new problem with uncertain prognosis? @ -No Drug Therapy requiring intensive monitoring for toxicity (Heparin, Nitro, Insulin, Cardizem)? @ -No Were any procedures done? @ -No Diagnosis/symptom? @ -Left impacted subcapital fracture of the femur Acute, or Chronic, or Acute on Chronic? @ -Acute Uncomplicated (without systemic symptoms) or Complicated (systemic symptoms)? @ -Uncomplicated Side effects of treatment? @ -none Exacerbation, Progression, or Severe Exacerbation] @ -no Poses a threat to life or bodily function? @ -no Diagnosis/symptom? @ -Fall on Plavix Acute, or Chronic, or Acute on Chronic? @ -acute Uncomplicated (without systemic symptoms) or Complicated (systemic symptoms)? @ -Uncomplicated Side effects of treatment? @ -No Exacerbation, Progression, or Severe Exacerbation? @ -No Poses a threat to life or bodily function? How? (Chest pain, USA, IA, pneumonia, PE, COPD, DKA, ARF, appy, cholecystitis, CVA, Diverticulitis, Homicidal, Suicidal, threat to staff... and all critical care pts) @ -No Diagnosis/symptom? @ -Skin tear Acute, or Chronic, or Acute on Chronic? @ -Acute Uncomplicated (without systemic symptoms) or Complicated (systemic symptoms)? @ -Uncomplicated Side effects of treatment? @ -none Exacerbation, Progression, or Severe Exacerbation] @ -no Poses a threat to life or bodily function? @ -no - Lab Data Result diagrams: 02/11/23 21:45 02/11/23 21:40 Lab Results 02/11/23 02/11/23 02/11/23 Range/Units 21:40 21:40 21:45 WBC 6.3 (3.8-10.6) k/uL RBC 4.25 (3.80-5.40) m/uL Hgb 12.2 (11.4-16.0) gm/dL Hct 36.5 (34.0-46.0) % MCV 85.9 (80.0-100.0) fL MCH 28.8 (25.0-35.0) pg MCHC 33.5 (31.0-37.0) g/dL RDW 14.8 (11.5-15.5) % Plt Count 176 (150-450) k/uL MPV 8.1 Neutrophils % 78 % Lymphocytes % 10 % Monocytes % 7 % Eosinophils % 2 % Basophils % 0 % Neutrophils # 4.9 (1.3-7.7) k/uL Lymphocytes # 0.6 L (1.0-4.8) k/uL Monocytes # 0.4 (0-1.0) k/uL Eosinophils # 0.2 (0-0.7) k/uL Basophils # 0.0 (0-0.2) k/uL PT (9.0-12.0) sec INR (<1.2) APTT (22.0-30.0) sec Sodium 139 (137-145) mmol/L Potassium 3.7 (3.5-5.1) mmol/L Chloride 103 (98-107) mmol/L Carbon Dioxide 30 (22-30) mmol/L Anion Gap 6 mmol/L BUN 18 H (7-17) mg/dL Creatinine 0.86 (0.52-1.04) mg/dL Est GFR (CKD-EPI)AfAm 71 (>60 ml/min/1.73 sqM) Est GFR (CKD-EPI)NonAf 62 (>60 ml/min/1.73 sqM) Glucose 132 H (74-99) mg/dL Calcium 9.0 (8.4-10.2) mg/dL Total Bilirubin 0.5 (0.2-1.3) mg/dL AST 19 (14-36) U/L ALT 10 (4-34) U/L Alkaline Phosphatase 139 H (38-126) U/L Total Protein 6.4 (6.3-8.2) g/dL Albumin 3.8 (3.5-5.0) g/dL Serum Alcohol <10 mg/dL Blood Type Recheck No Previous Record Bld Type Recheck Status CABO Indicated Spec Expiration Date 02/14/2023 - 233902/11/23 Range/Units 21:45 WBC (3.8-10.6) k/uL RBC (3.80-5.40) m/uL Hgb (11.4-16.0) gm/dL Hct (34.0-46.0) % MCV (80.0-100.0) fL MCH (25.0-35.0) pg MCHC (31.0-37.0) g/dL RDW (11.5-15.5) % Plt Count (150-450) k/uL MPV Neutrophils % % Lymphocytes % % Monocytes % % Eosinophils % % Basophils % % Neutrophils # (1.3-7.7) k/uL Lymphocytes # (1.0-4.8) k/uL Monocytes # (0-1.0) k/uL Eosinophils # (0-0.7) k/uL Basophils # (0-0.2) k/uL PT 10.7 (9.0-12.0) sec INR 1.0 (<1.2) APTT 23.6 (22.0-30.0) sec Sodium (137-145) mmol/L Potassium (3.5-5.1) mmol/L Chloride (98-107) mmol/L Carbon Dioxide (22-30) mmol/L Anion Gap mmol/L BUN (7-17) mg/dL Creatinine (0.52-1.04) mg/dL Est GFR (CKD-EPI)AfAm (>60 ml/min/1.73 sqM) Est GFR (CKD-EPI)NonAf (>60 ml/min/1.73 sqM) Glucose (74-99) mg/dL Calcium (8.4-10.2) mg/dL Total Bilirubin (0.2-1.3) mg/dL AST (14-36) U/L ALT (4-34) U/L Alkaline Phosphatase (38-126) U/L Total Protein (6.3-8.2) g/dL Albumin (3.5-5.0) g/dL Serum Alcohol mg/dL Blood Type Recheck Bld Type Recheck Status Spec Expiration Date - EKG Data -: EKG Interpreted by Me EKG Comments: 12-lead Electrocardiogram Interpretation Note EKG was reviewed and interpreted by myself. 12-lead ECG performed at 2154 is interpreted by me as revealing normal sinus rhythm at a rate of 66 beats per minute. Left axis deviation. IA interval is 190 ms, QRS duration is 94 ms, QTc is 438 ms.. There were no ST or T wave abnormalities to suggest myocardial ischemia or injury. R wave progression across the precordium was satisfactory. By my interpretation this EKG is non-diagnostic for acute ischemia. When compared With EKG from 02/02/2033, no significant change. Disposition Clinical Impression: Fall, Skin tear, Subcapital fracture of left hip Disposition: ADMITTED IP TO THIS HOSP Condition: Stable Is patient prescribed a controlled substance at d/c from ED?: No Referrals: Carlo Davey MD [Primary Care Provider] - 1-2 days Time of Disposition: 23:00
[2023-02-11 22:23] LABS: ALT 10 U/L (4-34); AST 19 U/L (14-36); African American GFR (CKD) 71 (>60 ml/min/1.73 sqM); Albumin 3.8 g/dL (3.5-5.0); Alcohol <10 mg/dL; Alkaline Phosphatase 139 U/L (38-126); Anion Gap 6 mmol/L; Blood Urea Nitrogen 18 mg/dL (7-17); Carbon Dioxide 30 mmol/L (22-30); Chloride 103 mmol/L (98-107); Glucose 132 mg/dL (74-99); Non-African American GFR(CKD) 62 (>60 ml/min/1.73 sqM); Potassium 3.7 mmol/L (3.5-5.1); Sodium 139 mmol/L (137-145); Total Bilirubin 0.5 mg/dL (0.2-1.3); Total Protein 6.4 g/dL (6.3-8.2)
--- NOTE | 2023-02-11 22:27 | CT ---
EXAMINATION TYPE: CT brain cspine wo con DATE OF EXAM: 02/11/2023 COMPARISON: 02/02/2023 CT brain HISTORY: Fall CT DLP: 1549 mGycm Automated exposure control for dose reduction was used. Images obtained of the brain and cervical spine with no contrast. Cervical vertebra have fairly normal alignment. There is degenerative disc space narrowing at C4-5 an d C5-6 and C6-7 with spurring of the endplates. The posterior elements are intact. No compression fra cture. There is enlargement of the ventricles. There is cerebral cortical atrophy. There is hypodensity in t he periventricular white matter. Calvarium is intact. There is normal aeration of the mastoid sinuses . IMPRESSION: Cerebral atrophy. White matter hypodensity consistent with microvascular ischemia and no significant change compared to old exam. No hemorrhage. Spondylotic changes in the cervical spine. No fracture.
--- NOTE | 2023-02-11 22:37 | XR ---
EXAMINATION TYPE: XR Hip LT and AP Pelvis DATE OF EXAM: 02/11/2023 COMPARISON: NONE HISTORY: Pain TECHNIQUE: 3 views FINDINGS: There is impacted subcapital fracture left femur. No dislocation. Pelvic ring is intact. IMPRESSION: Acute impacted subcapital fracture left femur. Fracture appears new compared to pelvis x- ray 11/19/2022.
--- NOTE | 2023-02-11 22:38 | XR ---
EXAMINATION TYPE: XR femur LT DATE OF EXAM: 02/11/2023 COMPARISON: NONE HISTORY: Pain. Fall TECHNIQUE: 4 views FINDINGS: There is acute impacted subcapital fracture left femur. There is narrowing of the medial pepe int space of the knee. There is calcification of the menisci at the knee joint. There is vascular betty cification. IMPRESSION: Acute impacted subcapital fracture left femur.
--- NOTE | 2023-02-11 22:40 | XR ---
EXAMINATION TYPE: XR chest 1V portable DATE OF EXAM: 02/11/2023 COMPARISON: 11/19/2022 HISTORY: Weakness TECHNIQUE: Single view FINDINGS: Heart is normal. Coarse interstitial density in the right mid and lower lung field.. Thora cic aorta is atheromatous. There are chest leads. No pleural effusion. IMPRESSION: There is some right lower lobe pulmonary interstitial and airspace infiltrate which is mo stly new compared to last exam. No obvious heart failure.
--- NOTE | 2023-02-11 22:41 | XR ---
EXAMINATION TYPE: XR elbow limited LT DATE OF EXAM: 02/11/2023 COMPARISON: NONE HISTORY: Fall. Pain TECHNIQUE: 2 view FINDINGS: Elbow joint spaces appear normal. There is some spurring of the olecranon process of the ul na. No sign of joint effusion. No acute fracture seen. IMPRESSION: Olecranon process spur formation. No acute fracture
[2023-02-11] MEDS ORDERED: NALOXONE 0.4 MG/ML 1 ML VIAL IV PRN (23:07)
[2023-02-11] MEDS ORDERED: ACETAMINOPHEN TAB 500 MG TAB PO STA (23:09)
[2023-02-11] MEDS ORDERED: MORPHINE SULFATE 4 MG/ML SYRINGE IVP PRN (23:51)
[2023-02-12] MEDS: SODIUM CHLORIDE 0.9% 1,000 ML IV STA ×2 (00:14→05:39)
[2023-02-12] MEDS: KETOROLAC 15 MG/ML 1 ML VIAL IVP SCH ×4 (05:38→17:26)
--- NOTE | 2023-02-12 10:04 | P.HPOR ---
History of Present Illness H&P Date: 02/12/23 This is an 87-year-old female who is admitted for a left hip fracture after a fall. Patient is seen and evaluated at bedside today. Family is present at bedside as well. Patient lives at [facility] and states that she doesn't remember the fall. Patient states that she normally ambulates with a walker around her apartment, but has had several falls lately. Patient was evaluated in the emergency room where x-rays revealed a left femoral neck fracture. Patient takes Plavix and this is currently being held. Patient's past medical history significant for dementia, hyperlipidemia, hypertension, thyroid disorder, history of TIA and history of cardiac catheterization with 5 cardiac stents. Patient denies any fever/chills, numbness, weakness, tingling, abdominal pain, shortness of breath or chest pain. Review of Systems See HPI. Past Medical History Past Medical History: Dementia, Hyperlipidemia, Hypertension, Myocardial Infarction (ND), Thyroid Disorder Additional Past Medical History / Comment(s): wound R leg from fall, cardiac stents placed, TIA's Last Myocardial Infarction Date:: 2007 History of Any Multi-Drug Resistant Organisms: None Reported Past Surgical History: Appendectomy, Heart Catheterization With Stent, Tonsillectomy Past Anesthesia/Blood Transfusion Reactions: No Reported Reaction Date of Last Stent Placement:: 2007 Past Psychological History: No Psychological Hx Reported Smoking Status: Former smoker Past Alcohol Use History: Rare Past Drug Use History: None Reported - Past Family History Sister(s) Family Medical History: Cancer Medications and Allergies Home Medications Medication Instructions Recorded Confirmed Type Clopidogrel [Plavix] 75 mg PO DAILY@79904/20/15 02/02/23 History hydroCHLOROthiazide 25 mg PO DAILY@79909/19/15 02/02/23 History Albuterol Nebulized [Ventolin 2.5 mg INHALATION 11/19/22 02/02/23 History Nebulized] RT-QID@08,12,16,20 Budesonide [Pulmicort] 0.5 mg INHALATION RT-BID@11/19/22 02/02/23 History Calcium Carbonate [Tums] 500 mg PO DAILY@79911/19/22 02/02/23 History Cyanocobalamin (Vitamin B-12) 1,000 mcg PO DAILY@79911/19/22 02/02/23 History [Vitamin B-12] DULoxetine HCL [Cymbalta] 30 mg PO DAILY@0800 11/19/22 02/02/23 History Escitalopram [Lexapro] 5 mg PO DAILY@0800 11/19/22 02/02/23 History Irbesartan [Avapro] 75 mg PO DAILY@0800 11/19/22 02/02/23 History Lactobacillus Acidophilus 1 cap PO DAILY@0800 11/19/22 02/02/23 History [Acidophilus Probiotic] Levocetirizine Dihydrochloride 5 mg PO HS@199911/19/22 02/02/23 History Levothyroxine Sodium [Synthroid] 100 mcg PO DAILY@0811/19/22 02/02/23 History Metoprolol Succinate [Metoprolol 25 mg PO DAILY@0800 11/19/22 02/02/23 History Succinate ER] Montelukast [Singulair] 10 mg PO DAILY@0800 11/19/22 02/02/23 History Pantoprazole Sodium 20 mg PO DAILY@0800 11/19/22 02/02/23 History Rivastigmine Tartrate [Exelon] 3 mg PO BID@0800,1700 11/19/22 02/02/23 History Rosuvastatin [Crestor] 20 mg PO DAILY@0800 11/19/22 02/02/23 History Ubidecarenone [Coenzyme Q10] 50 mg PO DAILY@0800 11/19/22 02/02/23 History Allergies Allergy/AdvReac Type Severity Reaction Status Date / Time cephalexin [From Keflex] Allergy Unknown Verified 02/02/23 18:33 Physical Examination On exam patient is resting comfortably in bed in no acute distress. There is tenderness to palpation over the left hip and pain with any attempted motion. Dorsalis pedis pulse is 2+ bilaterally. Calves Are Soft and Nontender to Palpation Bilaterally. No pain with motion of the right lower extremity. Neurovascular status and circulatory status are intact to bilateral upper and lower extremities. There is a clean dressing over the left elbow. Bilateral upper extremities move freely without pain. Patient has full range of motion of the head and neck without pain or difficulty. Head is normocephalic and atraumatic. Results X-rays of the left hip and pelvis are reviewed and reveal a left femoral neck fracture. - Labs Labs: Abnormal Lab Results - Last 24 Hours (Table) 02/11/23 02/11/23 Range/Units 21:40 21:45 Lymphocytes # 0.6 L (1.0-4.8) k/uL BUN 18 H (7-17) mg/dL Glucose 132 H (74-99) mg/dL Alkaline Phosphatase 139 H (38-126) U/L H & H 02/11/23 Range/Units 21:45 Hgb 12.2 (11.4-16.0) gm/dL Hct 36.5 (34.0-46.0) % Coagulation 02/11/23 Range/Units 21:45 INR 1.0 (<1.2) Result Diagrams: 02/11/23 21:45 02/11/23 21:40 Assessment and Plan (1) Fall Current Visit: Yes Status: Acute Code(s): W19.XXXA - UNSPECIFIED FALL, INITIAL ENCOUNTER SNOMED Code(s): 5134662 (2) Subcapital fracture of left hip Current Visit: Yes Status: Acute Code(s): S72.012A - UNSP INTRACAPSULAR FRACTURE OF LEFT FEMUR, INIT FOR CLOS FX SNOMED Code(s): 914974104 (3) Skin tear of elbow without complication Current Visit: No Status: Acute Code(s): S51.019A - LACERATION WITHOUT FOREIGN BODY OF UNSP ELBOW, INIT ENCNTR SNOMED Code(s): 782094097 Plan: 1. NPO after midnight. 2. Plavix is being held. 3. Continue bedrest and pain control. 4. Planning for left hip hemiarthroplasty by Dr Luis Carlos You on 02/13/2023 pending medical clearance and patient consent. All questions are dressed at bedside today.
--- NOTE | 2023-02-12 11:19 | P.CONS ---
History of Present Illness - History of Present Illness This is a pleasant 87 years old female with past medical history of Dementia, Hyperlipidemia, Hypertension, hypothyroidism, coronary artery disease status post stent Information were obtained with the help of family at bedside. Patient lives alone in her apartment in a nursing home at [facility]. As per family she's been having frequent falling more than 10 times over the last 3-4 months, last time was about 2 weeks ago on her right side and one week ago on her left side. Family does not believe that she's been having dizziness or syncope during these episodes of falling. She saw her PCP Dr. Munoz about a week ago who prescribed low back x-ray as she has history of spinal stenosis She has chronic low back pain but does not look bothering her right now. Radha ent cannot recall last few episodes of falling including this time, to the hospital. It was unwitnessed fall She's little bit short of breath with little coughing and phlegm but no chest pain, no abdominal pain vomiting or diarrhea, no specific urinary complaints although she has history of frequent UTI. She denies weakness or numbness or headache or dizziness. Her left leg movement is limited secondary to fractured hip diagnosed on admission On exam patient had right leg slightly swollen and warm than the left side. Also there was some evidence of pneumonia on admission however patient denies any swallowing difficulty, as per staff she took her pills very well this morning. as per family she has history of 5 stents in her heart and she has been follow- up with Dr. Juarez No smoking alcohol or illicit drug Vitas looks stable, Patient is afebrile She has unremarkable CBC, INR, BMP and liver enzymes. Alcohol less than 10. Head and neck computed tomography scan is negative for acute process but showing cerebral atrophy and microvascular ischemia, no significant change from previous exam, spondylitic changes in the cervical spine. No fracture Pelvic x-ray and left femur x-ra, patient will benefit from subacute rehab upon discharge y: Acute impacted subcapital fracture of the left femur. Left elbow x-ray: No acute fracture. Chest x-ray: There is some right lower lobe pulmonary interstitial and airspace infiltrate which is mostly new compared to last exam. No obvious heart failure Review of Systems Review of systems CONSTITUTIONAL: No fever, no malaise, no fatigue. HEENT: No recent visual problems or hearing problems. Denied any sore throat. CARDIOVASCULAR: No orthopnea, PND, no palpitations, no syncope. -PULMONARY: No chest wall tenderness, no cough, no hemoptysis. GASTROINTESTINAL: No diarrhea, no nausea, no vomiting, no abdominal pain. Normoactive bowel sounds. NEUROLOGICAL: No headaches, no weakness, no numbness. HEMATOLOGICAL: Denies any bleeding or petechiae. GENITOURINARY: Denies any burning micturition, frequency, or urgency. MUSCULOSKELETAL/RHEUMATOLOGICAL: Denies any joint pain, swelling, or any muscle pain. ENDOCRINE: Denies any polyuria or polydipsia. Past Medical History Past Medical History: Dementia, Hyperlipidemia, Hypertension, Myocardial In farction ([place]), Thyroid Disorder Additional Past Medical History / Comment(s): wound R leg from fall, cardiac stents placed, TIA's Last Myocardial Infarction Date:: 2007 History of Any Multi-Drug Resistant Organisms: None Reported Past Surgical History: Appendectomy, Heart Catheterization With Stent, Tonsillectomy Past Anesthesia/Blood Transfusion Reactions: No Reported Reaction Date of Last Stent Placement:: 2007 Past Psychological History: No Psychological Hx Reported Smoking Status: Former smoker Past Alcohol Use History: Rare Past Drug Use History: None Reported - Past Family History Sister(s) Family Medical History: Cancer Medications and Allergies Home Medications Medication Instructions Recorded Confirmed Type Clopidogrel [Plavix] 75 mg PO DAILY@79904/20/15 02/02/23 History hydroCHLOROthiazide 25 mg PO DAILY@79909/19/15 02/02/23 History Albuterol Nebulized [Ventolin 2.5 mg INHALATION 11/19/22 02/02/23 History Nebulized] RT-QID@08,12,16,20 Budesonide [Pulmicort] 0.5 mg INHALATION RT-BID@11/19/22 02/02/23 History Calcium Carbonate [Tums] 500 mg PO DAILY@79911/19/22 02/02/23 History Cyanocobalamin (Vitamin B-12) 1,000 mcg PO DAILY@79911/19/22 02/02/23 History [Vitamin B-12] DULoxetine HCL [Cymbalta] 30 mg PO DAILY@79911/19/22 02/02/23 History Escitalopram [Lexapro] 5 mg PO DAILY@79911/19/22 02/02/23 History Irbesartan [Avapro] 75 mg PO DAILY@0800 11/19/22 02/02/23 History Lactobacillus Acidophilus 1 cap PO DAILY@0800 11/19/22 02/02/23 History [Acidophilus Probiotic] Levocetirizine Dihydrochloride 5 mg PO HS@199911/19/22 02/02/23 History Levothyroxine Sodium [Synthroid] 100 mcg PO DAILY@0800 11/19/22 02/02/23 History Metoprolol Succinate [Metoprolol 25 mg PO DAILY@0800 11/19/22 02/02/23 History Succinate ER] Montelukast [Singulair] 10 mg PO DAILY@0800 11/19/22 02/02/23 History Pantoprazole Sodium 20 mg PO DAILY@0800 11/19/22 02/02/23 History Rivastigmine Tartrate [Exelon] 3 mg PO BID@0800,1700 11/19/22 02/02/23 History Rosuvastatin [Crestor] 20 mg PO DAILY@0800 11/19/22 02/02/23 History Ubidecarenone [Coenzyme Q10] 50 mg PO DAILY@0800 11/19/22 02/02/23 History Allergies Allergy/AdvReac Type Severity Reaction Status Date / Time cephalexin [From Keflex] Allergy Unknown Verified 02/02/23 18:33 Physical Exam Vitals: Vital Signs Temp Pulse Pulse Resp BP BP Pulse Ox 02/12/23 07:32 98.5 F 69 18 145/75 90 L 02/12/23 01:39 98.5 F 88 18 124/67 93 L 02/12/23 01:10 98.2 F 67 16 139/78 97 02/12/23 00:22 140/110 02/12/23 00:00 60 20 182/91 95 02/11/23 23:00 67 22 157/73 95 02/11/23 22:00 62 20 176/84 97 02/11/23 21:40 98.4 F 64 18 176/84 95 Intake and Output 02/11/23 02/12/23 02/12/23 22:59 06:59 14:59 Other: # Bowel Movements 1 Weight 81.647 kg 81.647 kg GENERAL: The patient is alert and oriented x3, not in any acute distress. Well developed, well nourished. HEENT: Pupils are round and equally reacting to light. EOMI. No scleral icterus. No conjunctival pallor. Normocephalic, atraumatic. No pharyngeal erythema. No thyromegaly. CARDIOVASCULAR: S1 and S2 present. No murmurs, rubs, or gallops. -PULMONARY: Chest is clear to auscultation, no wheezing or crackles. Mildly tachypneic and started crepitation ABDOMEN: Soft, nontender, nondistended, normoactive bowel sounds. No palpable organomegaly. MUSCULOSKELETAL: No joint swelling or deformity. -EXTREMITIES: No cyanosis, clubbing, or pedal edema. Right lower extremity is slightly swollen and warmer than the left side. Left lower extremity movement is restricted secondary to hip fracture NEUROLOGICAL: Gross neurological examination did not reveal any focal deficits. SKIN: No rashes. no petechiae. Results CBC & Chem 7: 02/11/23 21:45 02/11/23 21:40 Labs: Abnormal Lab Results - Last 24 Hours (Table) 02/11/23 02/11/23 Range/Units 21:40 21:45 Lymphocytes # 0.6 L (1.0-4.8) k/uL BUN 18 H (7-17) mg/dL Glucose 132 H (74-99) mg/dL Alkaline Phosphatase 139 H (38-126) U/L Assessment and Plan Assessment: Recurrent Fall, without syncope Acute left femur subclinical impacted fracture right lower lobe pulmonary interstitial and airspace infiltrate per radiologist, suspicious for pneumonia Right lower extremity warm and swollen, rule out DVTHistory of coronary artery disease status post stents 5. Hyperlipidemia Hypertension Hypothyroidism History of coronary artery disease status post stent Dementia Plan: Orthopedic team on the case for her hip fracture start Augmentin Checked for procalcitonin We'll do a swallow evaluation check ultrasound of the right lower extremity Continue breathing treatment Consult cardiac team for preop evaluation Pain management: Deferred to surgery team Labs and medication were reviewed.. Continue same treatment. Continue with symptomatic treatment. Resume home medication. Monitor labs and vitals. DVT and GI prophylaxis. Further recommendations as per clinical course of the patient DVT prophylaxis: Deferred to surgery team GI Prophylaxis: Pepcid PT/OT: Pending Prognosis is guarded
[2023-02-12] MEDS: AMOXIC-POT CLAV 500-125 MG 1 EACH TAB PO SCH ×2 (11:56→22:08)
--- NOTE | 2023-02-12 12:01 | US ---
EXAMINATION TYPE: US venous doppler duplex LE RT DATE OF EXAM: 02/12/2023 11:43 AM COMPARISON: US bilateral 2014 CLINICAL HISTORY: swelling. Right leg swelling SIDE PERFORMED: Right TECHNIQUE: The lower extremity deep venous system is examined utilizing real time linear array sonog anmol with graded compression, doppler sonography and color-flow sonography. VESSELS IMAGED: Common Femoral Vein Deep Femoral Vein Greater Saphenous Vein * Femoral Vein Popliteal Vein Small Saphenous Vein * Proximal Calf Veins (* superficial vessels) Right Leg: Negative for DVT Grayscale, color doppler, spectral doppler imaging performed of the deep veins of the right lower ext remity. There is normal flow, compressibility, vascular waveforms. IMPRESSION: No ultrasound evidence for acute DVT in the right lower extremity.
[2023-02-12] MEDS: ALBUTEROL NEBULIZED 2.5 MG/3 ML INHALATION PRN ×3 (12:16→18:55)
[2023-02-12 17:38] LABS: Appearance,Urine Cloudy (Clear); Bacteria,Urine Many /hpf; Bilirubin,Urine Negative (Negative); Blood,Urine Trace (Negative); Color,Urine Yellow; Glucose,Urine (UA) Negative (Negative); Hyaline Casts,Urine 4 /lpf (0-2); Ketones,Urine Trace (Negative); Leukocyte Esterase,Urine Large (Negative); Mucus,Urine Many /hpf; Nitrite,Urine Positive (Negative); PH, Urine 5.5 (5.0-8.0); Protein,Urine 1+ (Negative); RBC,Urine 12 /hpf (0-5); Squamous Epithelial Cell,Urine 49 /hpf (0-4); WBC,Urine 122 /hpf (0-5)
[2023-02-12 17:40] LABS: Amphetamine Screen,Urine Not Detected (NotDetected); Barbiturate Screen,Urine Not Detected (NotDetected); Benzodiazepines Screen,Urine Not Detected (NotDetected); Cocaine Screen,Urine Not Detected (NotDetected); Methadone Screen, Urine Not Detected (NotDetected); Opiate Screen,Urine Not Detected (NotDetected); Oxycodone Screen, Urine Not Detected (NotDetected); Phencyclidine Screen,Urine Not Detected (NotDetected); Tricyclic Antidepressant,Urine Not Detected (NotDetected); Urn Cannabinoid Scrn Not Detected (NotDetected)
[2023-02-13] MEDS: KETOROLAC 15 MG/ML 1 ML VIAL IVP SCH ×2 (00:04→05:06)
[2023-02-13] MEDS: ALBUTEROL NEBULIZED 2.5 MG/3 ML INHALATION PRN ×5 (01:41→19:28)
[2023-02-13] MEDS ORDERED: FUROSEMIDE 10 MG/ML 4 ML VIAL IV STA (07:28)
[2023-02-13] MEDS ORDERED: VALSARTAN 80 MG TAB PO SCH (07:29)
[2023-02-13] MEDS: METOPROLOL SUCCINATE (ER) 25 MG TAB.ER.24H PO SCH (07:42)
[2023-02-13] MEDS: ATORVASTATIN 40 MG TAB PO SCH (07:43)
[2023-02-13] MEDS: MONTELUKAST 10 MG TAB PO SCH (07:43)
[2023-02-13] MEDS: DONEPEZIL 10 MG TAB PO SCH (07:43)
[2023-02-13] MEDS: PANTOPRAZOLE 40 MG TABLET PO SCH (07:50)
[2023-02-13] MEDS: CYANOCOBALAMIN 500 MCG TAB PO SCH (07:50)
[2023-02-13] MEDS: LEVOTHYROXINE 100 MCG TAB PO SCH (07:50)
[2023-02-13] MEDS: DOXYCYCLINE 100 MG in SODIUM CHLORIDE 0.9% 100 ML IVPB SCH ×2 (08:27→22:24)
--- NOTE | 2023-02-13 08:42 | P.PN ---
Subjective This is a pleasant 87 years old female with past medical history of Dementia, Hyperlipidemia, Hypertension, hypothyroidism, coronary artery disease status post stent Information were obtained with the help of family at bedside. Patient lives alone in her apartment in a longterm at [facility]. As per family she's been having frequent falling more than 10 times over the last 3-4 months, last time was about 2 weeks ago on her right side and one week ago on her left side. Family does not believe that she's been having dizziness or syncope during these episodes of falling. She saw her PCP Dr. Munoz about a week ago who prescribed low back x-ray as she has history of spinal stenosis She has chronic low back pain but does not look bothering her right now. Patient cannot recall last few episodes of falling including this time, to the hospital. It was unwitnessed fall She's little bit short of breath with little coughing and phlegm but no chest pain, no abdominal pain vomiting or diarrhea, no specific urinary complaints although she has history of frequent UTI. She denies weakness or numbness or headache or dizziness. Her left leg movement is limited secondary to fractured hip diagnosed on admission On exam patient had right leg slightly swollen and warm than the left side. Also there was some evidence of pneumonia on admission however patient denies any swallowing difficulty, as per staff she took her pills very well this morning. as per family she has history of 5 stents in her heart and she has been follow- up with Dr. Juarez No smoking alcohol or illicit drug Vitas looks stable, Patient is afebrile She has unremarkable CBC, INR, BMP and liver enzymes. Alcohol less than 10. Head and neck computed tomography scan is negative for acute process but showing cerebral atrophy and microvascular ischemia, no significant change from previous exam, spondylitic changes in the cervical spine. No fracture Pelvic x-ray and left femur x-ra, patient will benefit from subacute rehab upon discharge y: Acute impacted subcapital fracture of the left femur. Left elbow x-ray: No acute fracture. Chest x-ray: There is some right lower lobe pulmonary interstitial and airspace infiltrate which is mostly new compared to last exam. No obvious heart failure 02/13/2023 Patient was more short of breath this morning and tachypneic. this morning patient is mor wheezing consistent with acute COPD exacerbation, as per daughter at bedside she follow up with Dr. Pickens and Dr. Vázquez in the outpatient setting for her COPD. Order for DC intravenous fluids from yesterday, IV fluids discontinued actually this morning, patient has some evidence of fluid overload before patient received 1 dose of IV Lasix today. Blood pressure was elevated with systolic 1 190s, informed nurse to give her blood pressure this morning anteriorly and keep monitoring. Because of her change in her fluid status we will ask for pulmonary evaluation for preop clearance prior to proceed with surgery. Cardiology team already evaluated the patient and input is pending. Repeat labs this morning and tomorrow Change antibiotics to ceftriaxone and doxycycline, patient also has some evidence of pneumonia and some evidence of UTI, she complains from increased frequency of urination but no dysuria, urinalysis is suspicious for infection and urine culture is pending. Bladder scan is negative. Right leg ultrasound is negative for DVT. She is currently on metoprolol and valsartan Objective - Vital Signs Vital signs: Vital Signs Temp 99.2 F 02/13/23 01:31 Pulse 100 02/13/23 07:39 Resp 17 02/12/23 20:00 BP 192/91 02/13/23 01:31 Pulse Ox 95 02/13/23 07:39 FiO2 Intake & Output 02/12/23 02/13/23 02/13/23 18:59 06:59 18:59 Intake Total 118 Output Total 80 800 Balance 38 -800 Intake: Oral 118 Output: Urine 80 800 - Exam GENERAL: The patient is alert and oriented x3, not in any acute distress. Well developed, well nourished. HEENT: Pupils are round and equally reacting to light. EOMI. No scleral icterus. No conjunctival pallor. Normocephalic, atraumatic. No pharyngeal erythema. No thyromegaly. CARDIOVASCULAR: S1 and S2 present. No murmurs, rubs, or gallops. --PULMONARY: Chest is clear to auscultation, no wheezing or crackles. Mildly tachypneic and Slight basal crepitation, also with exp wheezing today ABDOMEN: Soft, nontender, nondistended, normoactive bowel sounds. No palpable organomegaly. MUSCULOSKELETAL: No joint swelling or deformity. -EXTREMITIES: No cyanosis, clubbing, or pedal edema. Right lower extremity is slightly swollen and warmer than the left side. Left lower extremity movement is restricted secondary to hip fracture NEUROLOGICAL: Gross neurological examination did not reveal any focal deficits. SKIN: No rashes. no petechiae. - Labs CBC & Chem 7: 02/11/23 21:45 02/11/23 21:40 Labs: Abnormal Lab Results - Last 24 Hours (Table) 02/11/23 Range/Units 21:44 Urine Appearance Cloudy H (Clear) Urine Protein 1+ H (Negative) Urine Ketones Trace H (Negative) Urine Blood Trace H (Negative) Urine Nitrite Positive H (Negative) Ur Leukocyte Esterase Large H (Negative) Urine RBC 12 H (0-5) /hpf Urine WBC 122 H (0-5) /hpf Ur Squamous Epith Cells 49 H (0-4) /hpf Urine Bacteria Many H (None) /hpf Hyaline Casts 4 H (0-2) /lpf Urine Mucus Many H (None) /hpf Microbiology - Last 24 Hours (Table) 02/11/23 21:44 Urine Culture - Preliminary Urine,Voided Assessment and Plan Assessment: Recurrent Fall, without syncope Acute left femur subclinical impacted fracture right lower lobe pulmonary interstitial and airspace infiltrate per radiologist, suspicious for pneumonia Acute COPD exacerbation Fluid overload suspicious for acute CHF, unknown ejection fraction Right lower extremity warm and swollen, rule out DVT History of coronary artery disease status post stents 5. Hyperlipidemia Hypertension Hypothyroidism History of coronary artery disease status post stent Dementia Plan: Orthopedic team on the case for her hip fracture start change antibiotics to ceftriaxone and doxycycline as there is interaction between donepezil and Zithromax. Also patient would be nothing by mouth for surgery Start Symbicort, continue with bronchodilator Pulmonary team consult Patient is high-risk for surgery but there is no absolute contraindication if she gets cleared by pulmonary and cardiology team. We'll do a swallow evaluation Continue breathing treatment Consult cardiac and pulmonary teams for preop evaluation Start Symbicort steroids Pain management: Deferred to surgery team Labs and medication were reviewed.. Continue same treatment. Continue with symptomatic treatment. Resume home medication. Monitor labs and vitals. DVT and GI prophylaxis. Further recommendations as per clinical course of the patient DVT prophylaxis: Deferred to surgery team GI Prophylaxis: Pepcid PT/OT: Pending Prognosis is guarded family at bedside confirmed to me the mid to the patient full code during the surgery and they will change her CODE STATUS to DO NOT RESUSCITATE after surgery Discussed the plan of care with the daughter and granddaughter at bedside and they verbalized understanding and acceptance with the treatment plan as above
--- NOTE | 2023-02-13 09:23 | P.PN ---
Subjective Progress Note Date: 02/13/23 This is an 87 year old female who is admitted for left hip fracture. Patient was scheduled for left hip hemiarthroplasty today, but is having shortness of breath and is not cleared at this time. Objective - Vital Signs Vital signs: Vital Signs Temp 97.7 F 02/13/23 07:37 Pulse 98 02/13/23 07:49 Resp 22 02/13/23 07:37 BP 187/100 02/13/23 07:37 Pulse Ox 95 02/13/23 07:39 FiO2 Intake & Output 02/12/23 02/13/23 02/13/23 18:59 06:59 18:59 Intake Total 118 Output Total 80 800 Balance 38 -800 Intake: Oral 118 Output: Urine 80 800 - Exam On exam patient is resting comfortably in bed in no acute distress. There is tenderness to palpation over the left hip and pain with any attempted motion. Dorsalis pedis pulse is 2+ bilaterally. Calves Are Soft and Nontender to Palpation Bilaterally. No pain with motion of the right lower extremity. Neurovascular status and circulatory status are intact to bilateral upper and lower extremities. - Labs CBC & Chem 7: 02/11/23 21:45 02/11/23 21:40 Labs: Abnormal Lab Results - Last 24 Hours (Table) 02/11/23 Range/Units 21:44 Urine Appearance Cloudy H (Clear) Urine Protein 1+ H (Negative) Urine Ketones Trace H (Negative) Urine Blood Trace H (Negative) Urine Nitrite Positive H (Negative) Ur Leukocyte Esterase Large H (Negative) Urine RBC 12 H (0-5) /hpf Urine WBC 122 H (0-5) /hpf Ur Squamous Epith Cells 49 H (0-4) /hpf Urine Bacteria Many H (None) /hpf Hyaline Casts 4 H (0-2) /lpf Urine Mucus Many H (None) /hpf Microbiology - Last 24 Hours (Table) 02/11/23 21:44 Urine Culture - Preliminary Urine,Voided Assessment and Plan (1) Fall Current Visit: Yes Status: Acute Code(s): W19.XXXA - UNSPECIFIED FALL, INITIAL ENCOUNTER SNOMED Code(s): 1540684 (2) Subcapital fracture of left hip Current Visit: Yes Status: Acute Code(s): S72.012A - UNSP INTRACAPSULAR FRACTURE OF LEFT FEMUR, INIT FOR CLOS FX SNOMED Code(s): 463203656 (3) Skin tear of elbow without complication Current Visit: No Status: Acute Code(s): S51.019A - LACERATION WITHOUT FOREIGN BODY OF UNSP ELBOW, INIT ENCNTR SNOMED Code(s): 171259963 Plan: 1. NPO after midnight. 2. Plavix is being held. 3. Continue bedrest and pain control. 4. Planning for left hip hemiarthroplasty by Dr Luis Carlos You on 02/14/2023 pending medical clearance and patient consent. All questions are dressed at bedside today.
[2023-02-13] MEDS: SYMBICORT 160-4.5 MCG INHALER INHALATION SCH ×2 (11:37→19:28)
--- NOTE | 2023-02-13 12:04 | P.CRDCN ---
History of Present Illness History of present illness: This is Dr. Flores dictating a consult on this patient The patient was interviewed and examined IMPRESSION / ASSESSMENT: 89-year-old female presenting with a femoral head fracture Acute respiratory distress likely secondary to fluid overload Hypertension, elevated blood pressure readings Dyslipidemia PLAN: Hold surgery today IV Lasix 40 mg every 12 Start valsartan and increase to 80 mg twice daily Continue metoprolol succinate Continue atorvastatin 2-D echo and Doppler study ordered [facility] tomorrow HPI Patient presented with a fall that resulted in a subcapital fracture of the left femur Current ALLERGIES consulted for preop assessment When I saw the patient responding she was extremely short of breath and wheezing with bilateral rhonchi and prolonged expiratory wheezing I gave her 40 of Lasix IV and ordered a breathing treatment. She denied any chest discomfort she was visibly short of breath I reassessed her after an hour. She was definitely better although still short of breath with crackles at both bases Abnormality on the chest x-ray of 11 February noted In addition blood pressure was elevated 187/100 mmHg ROS: No fever chills or rigors, no cough, phlegm or expectoration, no nausea, vomiting or diarrhea, no hematuria, dysuria, no musculoskeletal complaints, no strokes or seizures, no skin lesions. EXAMINATION: Elevated blood pressure readings. Patient not on her home medications Decreased breath sounds bilaterally with bilateral rhonchi and bibasilar crackles Heart sounds distant No lower extremity edema In restraint distress REVIEW OF LABS, ECG & MEDICAL DATA White count 6.3 thousand, hematocrit 36 Electrolytes normal Renal function normal Abnormal UA Past Medical History Past Medical History: Dementia, Hyperlipidemia, Hypertension, Myocardial Infarction ([place]), Thyroid Disorder Additional Past Medical History / Comment(s): wound R leg from fall, cardiac stents placed, TIA's Last Myocardial Infarction Date:: 2007 History of Any Multi-Drug Resistant Organisms: None Reported Past Surgical History: Appendectomy, Heart Catheterization With Stent, Tonsillectomy Past Anesthesia/Blood Transfusion Reactions: No Reported Reaction Date of Last Stent Placement:: 2007 Past Psychological History: No Psychological Hx Reported Smoking Status: Former smoker Past Alcohol Use History: Rare Past Drug Use History: None Reported - Past Family History Sister(s) Family Medical History: Cancer Medications and Allergies Home Medications Medication Instructions Recorded Confirmed Type Clopidogrel [Plavix] 75 mg PO DAILY@0800 04/20/15 02/12/23 History RX: hydroCHLOROthiazide 25 mg PO DAILY@0809/19/15 02/12/23 History Albuterol Nebulized [Ventolin 2.5 mg INHALATION 11/19/22 02/12/23 History Nebulized] RT-QID@08,12,16,20 Budesonide [Pulmicort] 0.5 mg INHALATION RT-BID@08,199911/19/22 02/12/23 History Calcium Carbonate [Tums] 500 mg PO DAILY@79911/19/22 02/12/23 History Cyanocobalamin (Vitamin B-12) 1,000 mcg PO DAILY@79911/19/22 02/12/23 History [Vitamin B-12] DULoxetine HCL [Cymbalta] 30 mg PO DAILY@79911/19/22 02/12/23 History Escitalopram [Lexapro] 5 mg PO DAILY@79911/19/22 02/12/23 History Irbesartan [Avapro] 75 mg PO DAILY@79911/19/22 02/12/23 History Lactobacillus Acidophilus 1 cap PO DAILY@79911/19/22 02/12/23 History [Acidophilus Probiotic] Levothyroxine Sodium [Synthroid] 100 mcg PO DAILY@79911/19/22 02/12/23 History Metoprolol Succinate [Metoprolol 25 mg PO DAILY@79911/19/22 02/12/23 History Succinate ER] Montelukast [Singulair] 10 mg PO DAILY@79911/19/22 02/12/23 History RX: Levocetirizine Dihydrochloride 5 mg PO HS@199911/19/22 02/12/23 History RX: Pantoprazole Sodium 20 mg PO DAILY@79911/19/22 02/12/23 History Rivastigmine Tartrate [Exelon] 3 mg PO BID@0800,1700 11/19/22 02/12/23 History Rosuvastatin [Crestor] 20 mg PO DAILY@79911/19/22 02/12/23 History Ubidecarenone [Coenzyme Q10] 50 mg PO DAILY@0800 11/19/22 02/12/23 History Allergies Allergy/AdvReac Type Severity Reaction Status Date / Time cephalexin [From Keflex] Allergy Unknown Verified 02/12/23 11:43 Physical Exam Vitals: Vital Signs Temp Pulse Pulse Resp BP Pulse Ox 02/13/23 11:53 90 02/13/23 11:37 86 02/13/23 07:49 98 02/13/23 07:39 100 95 02/13/23 07:37 97.7 F 99 22 187/100 95 02/13/23 01:56 95 02/13/23 01:43 94 02/13/23 01:31 99.2 F 86 192/91 90 L 02/12/23 20:00 98.9 F 80 17 170/73 90 L 02/12/23 19:07 84 18 02/12/23 18:56 80 18 02/12/23 15:44 68 16 02/12/23 15:37 98.5 F 67 17 136/62 96 02/12/23 15:35 68 16 02/12/23 12:25 75 02/12/23 12:17 72 Intake and Output 02/12/23 02/13/23 02/13/23 22:59 06:59 14:59 Intake Total 118 Output Total 80 800 1400 Balance 38 -800 -1400 Intake: Oral 118 Output: Urine 80 800 1400 Other: # Bowel Movements 1 Results 02/11/23 21:45 02/11/23 21:40 Current Medications Generic Name Dose Route Start Last Admin Trade Name Garrickq PRN Reason Stop Dose Admin Acetaminophen 500 mg 02/11/23 23:09 Acetaminophen Tab 500 Mg Tab PO Q6HR PRN Fever and/ or Pain Albuterol Sulfate 2.5 mg 02/12/23 10:40 02/13/23 11:37 Albuterol Nebulized 2.5 Mg/3 Ml INHALATION 2.5 mg RT-QID PRN Administration Shortness Of Breath Or Wheezing Atorvastatin Calcium 40 mg 02/13/23 08:00 02/13/23 07:43 Atorvastatin 40 Mg Tab PO 40 mg DAILY@0800 [facility] Administration Budesonide/Formoterol Fumarate 2 puff 02/13/23 08:29 02/13/23 11:37 Symbicort 160-4.5 Mcg Inhaler INHALATION 2 puff RT-BID MOHINI Administration Cyanocobalamin 1,000 mcg 02/13/23 08:00 02/13/23 07:50 Cyanocobalamin 500 Mcg Tab PO Not Given DAILY@0800 [facility]1983 Donepezil HCl 10 mg 02/13/23 09:00 02/13/23 07:43 Donepezil 10 Mg Tab PO 10 mg DAILY MOHINI Administration Furosemide 40 mg 02/13/23 16:00 Furosemide 10 Mg/Ml 4 Ml Vial IV 02/13/23 16:01 ONCE ONE Ceftriaxone Sodium 1 gm/ 50 mls @ 100 mls/hr 02/13/23 09:00 02/13/23 07:44 Sodium Chloride IVPB 100 mls/hr Q24HR MOHINI Administration Protocol Doxycycline Hyclate 100 mg/ 100 mls @ 100 mls/hr 02/13/23 09:00 02/13/23 08:27 Sodium Chloride IVPB 02/18/23 09:01 100 mls/hr Q12HR [facility] Administration Protocol Levothyroxine Sodium 100 mcg 02/13/23 08:00 02/13/23 07:50 Levothyroxine 100 Mcg Tab PO Not Given DAILY@0800 [facility] Metoprolol Succinate 25 mg 02/13/23 08:00 02/13/23 07:42 Metoprolol Succinate (Er) 25 Mg Tab.Er.24h PO 25 mg DAILY@0800 [facility]1983 Administration Montelukast Sodium 10 mg 02/13/23 08:00 02/13/23 07:43 Montelukast 10 Mg Tab PO 10 mg DAILY@0800 [facility] Administration Morphine Sulfate 4 mg 02/11/23 23:51 Morphine Sulfate 4 Mg/Ml Syringe IVP Q4HR PRN Pain Naloxone HCl 0.2 mg 02/11/23 23:07 Naloxone 0.4 Mg/Ml 1 Ml Vial IV Q2M PRN Opioid Reversal Pantoprazole Sodium 40 mg 02/13/23 08:00 02/13/23 07:50 Pantoprazole 40 Mg Tablet PO Not Given DAILY@0800 [facility] Valsartan 80 mg 02/13/23 21:00 Valsartan 80 Mg Tab PO BID [facility] Intake and Output 02/12/23 02/13/23 02/13/23 22:59 06:59 14:59 Intake Total 118 Output Total 80 800 1400 Balance 38 -800 -1400 Intake: Oral 118 Output: Urine 80 800 1400 Other: # Bowel Movements 1 02/11/23 21:45 02/11/23 21:40
--- NOTE | 2023-02-13 13:20 | P.CNPUL ---
History of Present Illness Consult date: 02/13/23 Reason for consult: dyspnea History of present illness: Is an 87-year-old female patient and I was asked to evaluate this patient preoperatively and a preoperative pulmonary clearance as the patient has a left hip fracture. The patient is known to have dementia, hypertension hyperlipidemia and hypothyroidism and coronary artery disease. She has undergone previous coronary stenting pH is currently living [facility]. The patient had a fall and she sustained a left hip fracture. According to the family, she's been having frequent falls. The patient has chronic arthritis and chronic back pain. The patient usually amylase without a walker. In the emergency, the patient was found to have a left femoral neck fracture. She was taking Plavix which was placed on hold and orthopedic surgery was consulted. No other skeletal injuries. She does have a skin tear over the elbow. This morning, the patient was quite short of breath. The patient had a chest x-ray at time of admission that showed right lower lobe pulmonary interstitial and airspace infiltrates and some increased interstitial markings. She was given Lasix by cardiology. She produce excellent urine output and her breathing improved. Currently she is on 2 L of oxygen by nasal cannula with pulse ox 95%. She is communicating and she is able to complete full sentences. Responded 6.3 with a hemoglobin 12.2, normal cognition profile, normal renal function with a creatinine of 0.8. Indication for a possible urinary tract infection. The patient is currently on IV Rocephin. The patient is also on doxycycline. The patient receiving Lasix periodically per cardiology. Echocardiogram was ordered. Other comorbid conditions including rheumatoid arthritis, h ypertension, hyperlipidemia, hypothyroidism and previous history of skin cancer. Review of Systems CONSTITUTIONAL: No fever, no malaise, no fatigue. HEENT: No recent visual problems or hearing problems. Denied any sore throat. CARDIOVASCULAR: No orthopnea, PND, no palpitations, no syncope. -PULMONARY: No chest wall tenderness, no cough, no hemoptysis. He shortness of breath that got worse earlier this morning and currently the patient is feeling better GASTROINTESTINAL: No diarrhea, no nausea, no vomiting, no abdominal pain. Normoactive bowel sounds. NEUROLOGICAL: No headaches, no weakness, no numbness. HEMATOLOGICAL: Denies any bleeding or petechiae. GENITOURINARY: Denies any burning micturition, frequency, or urgency. MUSCULOSKELETAL/RHEUMATOLOGICAL: Denies any joint pain, swelling, or any muscle pain. Repeated falls and fracture of the left hip along with chronic osteoarthritis and rheumatoid arthritis and for balance and gait ENDOCRINE: Denies any polyuria or polydipsia. Past Medical History Past Medical History: Dementia, Hyperlipidemia, Hypertension, Myocardial Infarction ([place]), Thyroid Disorder Additional Past Medical History / Comment(s): wound R leg from fall, cardiac stents placed, TIA's Last Myocardial Infarction Date:: 2007 History of Any Multi-Drug Resistant Organisms: None Reported Past Surgical History: Appendectomy, Heart Catheterization With Stent, Tonsillec roge Past Anesthesia/Blood Transfusion Reactions: No Reported Reaction Date of Last Stent Placement:: 2007 Past Psychological History: No Psychological Hx Reported Smoking Status: Former smoker Past Alcohol Use History: Rare Past Drug Use History: None Reported - Past Family History Sister(s) Family Medical History: Cancer Medications and Allergies Home Medications Medication Instructions Recorded Confirmed Type Clopidogrel [Plavix] 75 mg PO DAILY@79904/20/15 02/12/23 History hydroCHLOROthiazide 25 mg PO DAILY@79909/19/15 02/12/23 History Albuterol Nebulized [Ventolin 2.5 mg INHALATION 11/19/22 02/12/23 History Nebulized] RT-QID@08,12,16,20 Budesonide [Pulmicort] 0.5 mg INHALATION RT-BID@11/19/22 02/12/23 Hist ory Calcium Carbonate [Tums] 500 mg PO DAILY@79911/19/22 02/12/23 History Cyanocobalamin (Vitamin B-12) 1,000 mcg PO DAILY@79911/19/22 02/12/23 History [Vitamin B-12] DULoxetine HCL [Cymbalta] 30 mg PO DAILY@79911/19/22 02/12/23 History Escitalopram [Lexapro] 5 mg PO DAILY@79911/19/22 02/12/23 History Irbesartan [Avapro] 75 mg PO DAILY@79911/19/22 02/12/23 History Lactobacillus Acidophilus 1 cap PO DAILY@79911/19/22 02/12/23 History [Acidophilus Probiotic] Levocetirizine Dihydrochloride 5 mg PO HS@199911/19/22 02/12/23 History Levothyroxine Sodium [Synthroid] 100 mcg PO DAILY@0800 11/19/22 02/12/23 History Metoprolol Succinate [Metoprolol 25 mg PO DAILY@0800 11/19/22 02/12/23 History Succinate ER] Montelukast [Singulair] 10 mg PO DAILY@0800 11/19/22 02/12/23 History Pantoprazole Sodium 20 mg PO DAILY@0800 11/19/22 02/12/23 History Rivastigmine Tartrate [Exelon] 3 mg PO BID@0800,1700 11/19/22 02/12/23 History Rosuvastatin [Crestor] 20 mg PO DAILY@0800 11/19/22 02/12/23 History Ubidecarenone [Coenzyme Q10] 50 mg PO DAILY@0800 11/19/22 02/12/23 History Allergies Allergy/AdvReac Type Severity Reaction Status Date / Time cephalexin [From Keflex] Allergy Unknown Verified 02/12/23 11:43 Physical Exam Vitals: Vital Signs Temp Pulse Pulse Resp BP Pulse Ox 02/13/23 11:53 90 02/13/23 11:37 86 02/13/23 07:49 98 02/13/23 07:39 100 95 02/13/23 07:37 97.7 F 99 22 187/100 95 02/13/23 01:56 95 02/13/23 01:43 94 02/13/23 01:31 99.2 F 86 192/91 90 L 02/12/23 20:00 98.9 F 80 17 170/73 90 L 02/12/23 19:07 84 18 02/12/23 18:56 80 18 02/12/23 15:44 68 16 02/12/23 15:37 98.5 F 67 17 136/62 96 02/12/23 15:35 68 16 Intake and Output 02/12/23 02/13/23 02/13/23 22:59 06:59 14:59 Intake Total 118 Output Total 80 800 1400 Balance 38 -800 -1400 Intake: Oral 118 Output: Urine 80 800 1400 Other: # Bowel Movements 1 GENERAL: The patient is alert and oriented x3, not in any acute distress. Well developed, well nourished. Breathing is less labored at this point, the patient is currently on 2 L of oxygen by nasal cannula Head exam was generally normal. There was no scleral icterus or corneal arcus. Mucous membranes were moist. HEENT: Pupils are round and equally reacting to light. EOMI. No scleral icterus. No conjunctival pallor. Normocephalic, atraumatic. No pharyngeal erythema. No thyromegaly. There is positive JVD CARDIOVASCULAR: S1 and S2 present. No murmurs, rubs, or gallops. --PULMONARY: Chest is clear to auscultation, no wheezing or crackles. Mildly tachypneic and Slight basal crepitation, also with exp wheezing today ABDOMEN: Soft, nontender, nondistended, normoactive bowel sounds. No palpable organomegaly. MUSCULOSKELETAL: No joint swelling or deformity. -EXTREMITIES: No cyanosis, clubbing, or pedal edema. Right lower extremity is slightly swollen and warmer than the left side. Left lower extremity movement is restricted secondary to hip fracture NEUROLOGICAL: Gross neurological examination did not reveal any focal deficits. Examination of the skin revealed no evidence of significant rashes, suspicious appearing nevi or other concerning lesions. Results - Laboratory Findings CBC and BMP: 02/11/23 21:45 02/11/23 21:40 PT/INR, D-dimer PT 10.7 sec (9.0-12.0) 02/11/23 21:45 INR 1.0 (<1.2) 02/11/23 21:45 Abnormal lab findings: Abnormal Labs 02/11/23 02/11/23 02/11/23 21:40 21:44 21:45 Lymphocytes # 0.6 L BUN 18 H Glucose 132 H Alkaline Phosphatase 139 H Urine Appearance Cloudy H Urine Protein 1+ H Urine Ketones Trace H Urine Blood Trace H Urine Nitrite Positive H Ur Leukocyte Esterase Large H Urine RBC 12 H Urine WBC 122 H Ur Squamous Epith Cells 49 H Urine Bacteria Many H Hyaline Casts 4 H Urine Mucus Many H - Diagnostic Findings Chest x-ray: image reviewed Assessment and Plan Plan: Left femoral neck fracture post fall awaiting surgery Acute hypoxic respiratory failure currently on 2 L of O2 nasal cannula. Could be a component of pulmonary edema/CHF contributing to this shortness of breath and the patient with significantly with diuresis Coronary artery disease, previous coronary intervention and stenting Poor balance of recurrent falls Suspect UTI Dementia Hypertension Hyperlipidemia Hypothyroidism Rheumatoid arthritis Plan We'll cancel the surgery for today and rescheduled for tomorrow Keep Plavix on hold Agree on diuresis and the patient is improved significantly Wean FiO2 as tolerated to [facility] institution about 90% Repeat chest x-ray in the morning Awaiting a repeat echocardiogram Awaiting final cardiac clearance Pulmonary status is stable for now. The patient should be able to withstand surgery under spinal anesthesia. Continue IV Rocephin for a possible inspected UTI Repeat chest x-ray in the morning We'll follow
[2023-02-13] MEDS ORDERED: FUROSEMIDE 10 MG/ML 4 ML VIAL IV ONE (16:00)
[2023-02-13] MEDS: VALSARTAN 80 MG TAB PO SCH (21:05)
[2023-02-13] MEDS: ACETAMINOPHEN TAB 500 MG TAB PO PRN (21:05)
--- NOTE | 2023-02-14 08:02 | XR ---
EXAMINATION TYPE: XR chest 1V DATE OF EXAM: 02/14/2023 COMPARISON: 02/11/2023 INDICATION: Dyspnea TECHNIQUE: Single frontal view of the chest is obtained. FINDINGS: The heart size is normal. The pulmonary vasculature is normal. Mild increased lung markings at the right perihilar region and possibly in the retrocardiac left lowe r lung base. Findings are nonspecific. Correlate for atelectasis and pneumonia. Follow-up is recommen ded. IMPRESSION: 1. Right perihilar filtrate present previously. Right lower lobe infiltrate may be improving. Some le ft basilar infiltrate may be present. Correlate for atelectasis and pneumonia.
[2023-02-14] MEDS: LEVOTHYROXINE 100 MCG TAB PO SCH (10:16)
[2023-02-14] MEDS: VALSARTAN 80 MG TAB PO SCH ×2 (10:16→20:44)
[2023-02-14] MEDS: ATORVASTATIN 40 MG TAB PO SCH (10:16)
[2023-02-14] MEDS: PANTOPRAZOLE 40 MG TABLET PO SCH (10:16)
[2023-02-14] MEDS: CYANOCOBALAMIN 500 MCG TAB PO SCH (10:16)
[2023-02-14] MEDS: MONTELUKAST 10 MG TAB PO SCH (10:16)
[2023-02-14] MEDS: METOPROLOL SUCCINATE (ER) 25 MG TAB.ER.24H PO SCH (10:16)
[2023-02-14] MEDS: DONEPEZIL 10 MG TAB PO SCH (10:16)
[2023-02-14] MEDS: DOXYCYCLINE 100 MG in SODIUM CHLORIDE 0.9% 100 ML IVPB SCH (10:17)
[2023-02-14] MEDS: SYMBICORT 160-4.5 MCG INHALER INHALATION SCH ×2 (10:22→21:32)
[2023-02-14] MEDS: ALBUTEROL NEBULIZED 2.5 MG/3 ML INHALATION PRN ×2 (10:22→12:41)
[2023-02-14 10:43] LABS: Basophils # (A) 0.07 X 10*3/uL (0.00-0.10); Eosinophils # (A) 0.35 X 10*3/uL (0.04-0.35); Eosinophils % (A) 4.9 %; HCT 35.8 % (37.2-46.3); HGB 11.4 g/dL (12.0-15.0); Immature Grans, Automated 0.4 %; Lymphocytes # (A) 0.59 X 10*3/uL (0.90-5.00); Lymphocytes % (A) 8.2 %; MCHC 31.8 g/dL (32.0-37.0); Mean Platelet Volume 11.2 fL (9.5-12.2); Monocytes # (A) 0.64 X 10*3/uL (0.20-1.00); Monocytes % (A) 8.9 %; NRBC Per 100 WBC 0 /100 WBCS (0.0-0.0); Neutrophils # (A) 5.49 X 10*3/uL (1.80-7.70); Neutrophils % (A) 76.6 %; Platelet Count 149 X 10*3/uL (140-440); RBC 4.07 X 10*6/uL (4.10-5.20); RDW 14.8 % (11.5-14.5); WBC 7.17 X 10*3/uL (4.50-10.00)
[2023-02-14 10:54] LABS: African American GFR (CKD) 67.1 (60.0-200.0); Anion Gap 11.8 mmol/L (10.00-18.00); BUN/Creat Ratio 16.44 Ratio (12.00-20.00); Blood Urea Nitrogen 14.8 mg/dL (9.0-27.0); Calcium 8.7 mg/dL (8.7-10.3); Carbon Dioxide 28.2 mmol/L (20.0-27.5); Non-African American GFR(CKD) 57.9 (60.0-200.0); Potassium 3.4 mmol/L (3.5-5.5)
--- NOTE | 2023-02-14 11:00 | CA ---
Transthoracic Echo Report Name: Laura Wiggins Age: 87 Gender: F : 1935 Exam Date: 02/14/2023 08:33 Exam Location: [facility] Ht (in): 65 Wt (lb): 180 Ordering Physician: Christiano Flores MD ([id number]) Attending/Referring Phys: Supervisor [employer]il[employer] Joanne Manning RDCS Procedure CPT: Indications: Pre Op Cardiac Hx: Technical Quality: Contrast 1: Total Dose (mL): Contrast 2: Total Dose (mL): MEASUREMENTS (Male / Female) Normal Values 2D ECHO LV Diastolic Diameter PLAX 3.9 cm 4.2 - 5.9 / 3.9 - 5.3 cm LV Systolic Diameter PLAX 2.7 cm IVS Diastolic Thickness 1.1 cm 0.6 - 1.0 / 0.6 - 0.9 cm LVPW Diastolic Thickness 1.0 cm 0.6 - 1.0 / 0.6 - 0.9 cm LV Relative Wall Thickness 0.6 RV Internal Dim ED PLAX 3.4 cm LVOT Diameter 2.0 cm LA Systolic Diameter LX 3.5 cm 3.0 - 4.0 / 2.7 - 3.8 cm LA Volume 47.2 cm??? 18 - 58 / 22 - 52 cm??? M-MODE Aortic Root Diameter MM 3.1 cm MV E Point Septal Separation 0.7 cm AV Cusp Separation MM 0.9 cm DOPPLER AV Peak Velocity 175.0 cm/s AV Peak Gradient 12.2 mmHg MV Area PHT 1.9 cm??? Mitral E Point Velocity 92.5 cm/s Mitral A Point Velocity 128.6 cm/s Mitral E to A Ratio 0.7 MV Deceleration Time 399.6 ms MV E' Velocity 5.4 cm/s Mitral E to MV E' Ratio 17.0 TR Peak Velocity 266.1 cm/s TR Peak Gradient 28.3 mmHg Right Ventricular Systolic Press 33.1 mmHg FINDINGS Left Ventricle Left ventricular ejection fraction is estimated at 55-60 %. Left ventricular cavity size normal. Left ventricular wall thickness normal. Normal left ventricular wall motion. Technically suboptimal study without good visualization of endocardial margins but I believe ejection fraction is in the normal range Right Ventricle Mild right ventricular dilatation. Right ventricular systolic pressure within normal limits. Right Atrium Normal right atrial size. Left Atrium Normal left atrial size. Mitral Valve Mitral valve thickened. Mild mitral annular calcification. Aortic Valve Trileaflet aortic valve. Aortic valve sclerosis. Tricuspid Valve Structurally normal tricuspid valve. Mild tricuspid regurgitation. Pulmonic Valve Pulmonic valve not well visualized. Pericardium Normal pericardium. No pericardial effusion. Aorta Normal size aortic root and proximal ascending aorta. CONCLUSIONS Technically suboptimal study grossly preserved systolic function with mild mitral and tricuspid regurgitation. Mild mitral annular calcification. No pericardial effusion. No pulmonary hypertension Previewed by: Dr. Brie Coughlin MD (Electronically Signed) Final Date: 14 February 2023 10:59
[2023-02-14] MEDS ORDERED: amLODIPine 5 MG TAB PO STA (11:51)
[2023-02-14] MEDS ORDERED: IV FLUID CONTINUATION 1,000 ML IV ONE (13:18)
--- NOTE | 2023-02-14 13:28 | P.PN ---
Subjective Progress Note Date: 02/14/23 History of present illness: Patient presented with a fall that resulted in a subcapital fracture of the left femur Current ALLERGIES consulted for preop assessment When I saw the patient responding she was extremely short of breath and wheezing with bilateral rhonchi and prolonged expiratory wheezing I gave her 40 of Lasix IV and ordered a breathing treatment. She denied any chest discomfort she was visibly short of breath I reassessed her after an hour. She was definitely better although still short of breath with crackles at both bases Abnormality on the chest x-ray of 11 February noted In addition blood pressure was elevated 187/100 mmHg 02/13 Patient is seen today in follow-up, multiple family members are at bedside. Yesterday, surgery was postponed due to fluid overload. Patient's blood pressure is on the high side today. Echocardiogram reveals EF 55-60% with mild mitral and tricuspid regurgitation. Mild mitral annular calcification. No pericardial effusion. Pulmonary hypertension. Orthopedics is planning for surgical intervention today at noon. Physical examination: Gen: This is an 87-year-old female. She is resting in bed and appears to be comfortable at rest. VS: reviewed HEENT: Head is atraumatic, normocephalic. Pupils equal, round. Sclerae is anicteric. NECK: Supple. No JVD. . LUNGS: Mild expiratory wheeze. No intercostal retractions. HEART: Distant heart sounds Regular rate and rhythm. No murmur. ABDOMEN: Soft No tenderness. EXTREMITIES: No pedal edema. No calf tenderness. NEUROLOGICAL: Patient is awake, alert and oriented x3. Assessment: Left femoral subcapital fracture Acute respiratory distress secondary to fluid overload Hypertension uncontrolled Dyslipidemia Plan: Give patient Norvasc 5 mg 1 dose now Patient is cleared for surgery from cardiology, she is at high risk for complications but no contraindications to surgery. Further recommendations to follow based upon clinical course Thank you kindly for this consultation. Nurse practitioner note has been reviewed, I agree with documented findings and plan of care. Patient was seen and examined. Objective - Vital Signs Vital signs: Vital Signs Temp 98.1 F 02/14/23 06:59 Pulse 72 02/14/23 12:52 Resp 18 02/14/23 08:00 BP 179/75 02/14/23 06:59 Pulse Ox 98 02/14/23 10:23 FiO2 Intake & Output 0402/14/23 02/14/23 18:59 06:59 18:59 Output Total 2400 600 Balance -2400 -600 Output: Urine 2400 600 Other: Voiding Method Indwelling Catheter # Bowel Movements 1 - Labs CBC & Chem 7: 02/14/23 06:41 02/14/23 06:41 Labs: Abnormal Lab Results - Last 24 Hours (Table) 02/14/23 02/14/23 Range/Units 06:41 06:41 RBC 4.07 L (4.10-5.20) X 10*6/uL Hgb 11.4 L (12.0-15.0) g/dL Hct 35.8 L (37.2-46.3) % MCHC 31.8 L (32.0-37.0) g/dL RDW 14.8 H (11.5-14.5) % Lymphocytes # 0.59 L (0.90-5.00) X 10*3/uL Potassium 3.4 L (3.5-5.5) mmol/L Carbon Dioxide 28.2 H (20.0-27.5) mmol/L Est GFR (CKD-EPI)NonAf 57.9 L (60.0-200.0) Glucose 113 H (70-110) mg/dL Microbiology - Last 24 Hours (Table) 02/11/23 21:44 Urine Culture - Preliminary Urine,Voided Gram Neg Bacilli
[2023-02-14] MEDS ORDERED: DEXAMETHASONE SOD PHOSPHATE 4 MG/ML 1 ML VIAL IVP ONE (13:30)
[2023-02-14] MEDS ORDERED: ONDANSETRON 4 MG/2 ML VIAL IVP ONE ×2 (13:30→17:17)
[2023-02-14] MEDS ORDERED: ONDANSETRON 4 MG/2 ML VIAL ONE (13:31)
[2023-02-14] MEDS ORDERED: TRANEXAMIC ACID 1,000 MG in SODIUM CHLORIDE 0.9% 100 ML IVPB PRN (13:53)
[2023-02-14] MEDS ORDERED: HYDROmorphone 0.5 MG/0.5 ML SYRINGE IVP PRN ×3 (14:16)
[2023-02-14] MEDS ORDERED: MAGNESIUM HYDROXIDE 2,400 MG/10 ML CUP PO PRN (14:16)
[2023-02-14] MEDS ORDERED: NALOXONE 0.4 MG/ML 1 ML VIAL IV PRN (14:16)
[2023-02-14] MEDS ORDERED: ROCURONIUM 10 MG/ML (5 ML VIAL) IV ONE (14:18)
[2023-02-14] MEDS ORDERED: GLYCOPYRROLATE 0.2 MG/ML 2 ML VIAL ONE (14:18)
[2023-02-14] MEDS ORDERED: SUCCINYLCHOLINE CHLORIDE 200 MG/10 ML VIAL IV ONE (14:18)
[2023-02-14] MEDS ORDERED: TRANEXAMIC ACID IN NACL,ISO-OS 1,000 MG/100 ML BAG ONE (14:18)
[2023-02-14] MEDS ORDERED: NEOSTIGMINE 1 MG/ML 10 ML VIAL ONE (14:18)
[2023-02-14] MEDS ORDERED: fentaNYL (PF) 50 MCG/ML 2 ML AMP ONE (14:18)
[2023-02-14] MEDS ORDERED: ETOMIDATE 2 MG/ML 10 ML VIAL ONE (14:18)
[2023-02-14] MEDS ORDERED: ePHEDrine 50 MG/ML 1 ML VIAL ONE (14:18)
[2023-02-14] MEDS ORDERED: PROPOFOL 10 MG/ML 20 ML VIAL IV ONE (14:18)
[2023-02-14] MEDS ORDERED: ESMOLOL 100 MG/10 ML VIAL ONE (14:18)
[2023-02-14] MEDS ORDERED: HYDROcodone/APAP 5-325MG 1 EACH TAB PO PRN ×2 (14:19)
--- NOTE | 2023-02-14 14:41 | P.PN ---
Subjective Progress Note Date: 02/14/23 Is an 87-year-old female patient and I was asked to evaluate this patient preoperatively and a preoperative pulmonary clearance as the patient has a left hip fracture. The patient is known to have dementia, hypertension hyperlipidemia and hypothyroidism and coronary artery disease. She has undergone previous coronary stenting pH is currently living [facility]. The patient had a fall and she sustained a left hip fracture. According to the family, she's been having frequent falls. The patient has chronic arthritis and chronic back pain. The patient usually amylase without a walker. In the emergency, the patient was found to have a left femoral neck fracture. She was taking Plavix which was placed on hold and orthopedic surgery was consulted. No other skeletal injuries. She does have a skin tear over the elbow. This morning, the patient was quite short of breath. The patient had a chest x-ray at time of admission that showed right lower lobe pulmonary interstitial and airspace infiltrates and some increased interstitial markings. She was given Lasix by cardiology. She produce excellent urine output and her breathing improved. Currently she is on 2 L of oxygen by nasal cannula with pulse ox 95%. She is communicating and she is able to complete full sentences. Responded 6.3 with a hemoglobin 12.2, normal cognition profile, normal renal function with a creatinine of 0.8. Indication for a possible urinary tract infection. The patient is currently on IV Rocephin. The patient is also on doxycycline. The patient receiving Lasix periodically per cardiology. Echocardiogram was ordered. Other comorbid conditions including rheumatoid arthritis, hypertension, hyperlipidemia, hypothyroidism and previous history of skin cancer. The patient is seen today 02/14/2023 in follow-up on the regular medical floor. She is currently resting comfortably in bed. Awake and alert in no acute distress. She is awaiting surgical clearance for repair of her left hip fractur e. Presently she denies any worsening shortness of breath, cough or congestion. She is maintaining O2 saturations in the high 90s on 2 L/m per nasal cannula. She's afebrile. Hemodynamically stable. Follow-up chest x-ray reveals improving right lower lobe infiltrate. Left basilar infiltrate present. Suspect atelectasis versus pneumonia. Urine culture is positive for gram- negative bacilli. White count 7.1. Hemoglobin 11.4. Platelets 149. Sodium 143. Potassium 3.4. Bicarb 20. BUN 15. Creatinine 0.9. She is continued on Symbicort, albuterol. On ceftriaxone. Heparin for DVT prophylaxis. Echocardiogram revealed preserved left ventricular systolic function. No significant valvular heart disease. Objective - Vital Signs Vital signs: Vital Signs Temp 98.0 F 02/14/23 13:24 Pulse 76 02/14/23 13:24 Resp 16 02/14/23 13:24 BP 149/71 02/14/23 13:24 Pulse Ox 98 02/14/23 13:24 FiO2 Intake & Output 02/13/23 02/14/23 02/14/23 18:59 06:59 18:59 Output Total 2400 600 Balance -2400 -600 Output: Urine 2400 600 Other: Voiding Method Indwelling Catheter # Bowel Movements 1 - Exam GENERAL EXAM: Alert, very pleasant 87-year-old female, on 2 L, fairly comfortable in no apparent distress. HEAD: Normocephalic. EYES: Normal reaction of pupils, equal size. NOSE: Clear with pink turbinates. THROAT: No erythema or exudates. NECK: No masses, no JVD. CHEST: No chest wall deformity. LUNGS: Equal air entry with no crackles, wheeze, rhonchi or dullness. CVS: S1 and S2 normal with no audible murmur, regular rhythm. ABDOMEN: No hepatosplenomegaly, normal bowel sounds, no guarding or rigidity. SPINE: No scoliosis or deformity SKIN: No rashes CENTRAL NERVOUS SYSTEM: No focal deficits, tone is normal in all 4 extremities. EXTREMITIES: Left lower extremity movement restricted secondary to hip fracture. There is no peripheral edema. No clubbing, no cyanosis. Peripheral pulses are intact. - Labs CBC & Chem 7: 02/14/23 06:41 02/14/23 06:41 Labs: Abnormal Lab Results - Last 24 Hours (Table) 02/14/23 02/14/23 Range/Units 06:41 06:41 RBC 4.07 L (4.10-5.20) X 10*6/uL Hgb 11.4 L (12.0-15.0) g/dL Hct 35.8 L (37.2-46.3) % MCHC 31.8 L (32.0-37.0) g/dL RDW 14.8 H (11.5-14.5) % Lymphocytes # 0.59 L (0.90-5.00) X 10*3/uL Potassium 3.4 L (3.5-5.5) mmol/L Carbon Dioxide 28.2 H (20.0-27.5) mmol/L Est GFR (CKD-EPI)NonAf 57.9 L (60.0-200.0) Glucose 113 H (70-110) mg/dL Microbiology - Last 24 Hours (Table) 02/11/23 21:44 Urine Culture - Preliminary Urine,Voided Gram Neg Bacilli Assessment and Plan Assessment: Acute left femoral neck fracture status post fall, awaiting surgery Acute hypoxic respiratory failure currently on 2 L of O2 nasal cannula. Could be a component of pulmonary edema/CHF contributing to this shortness of breath and the patient with significantly with diuresis Coronary artery disease, previous coronary intervention and stenting Poor balance of recurrent falls Suspect UTI Dementia Hypertension Hyperlipidemia Hypothyroidism Rheumatoid arthritis Plan: The patient was seen and evaluated Chest x-ray, echocardiogram, labs and medications reviewed Cleared for surgery from the pulmonary standpoint Titrate the FiO2 as tolerated Continue bronchodilators Add incentive spirometer We will continue to follow I have personally seen and examined the patient, performed the documentation and the assessment and plan as written. Number of minutes spent on the visit: 10.
[2023-02-14] MEDS ORDERED: ceFAZolin 1,000 MG in SODIUM CHLORIDE 0.9% 1,000 ML IRRIGATION ONE (15:04)
--- NOTE | 2023-02-14 15:23 | P.OP ---
Date of Procedure: 02/14/23 Preoperative Diagnosis: Subcapital fracture left hip Postoperative Diagnosis: Subcapital fracture left hip Procedure(s) Performed: Left hip hemiarthroplasty with a direct anterior approach Implants: Galvan and nephew Polarstem size 3 standard with a collar Galvan & Nephew tandem unipolar, 45 mm Galvan & Nephew tandem unipolar 12/14 taper sleeve, +0 mm All components were press-fit. Anesthesia: GETA Surgeon: Luis Carlos You Tower Hoist Operator #1: Therese Yeh Estimated Blood Loss (ml): 300 Pathology: other (Femoral head) Condition: stable Disposition: PACU Indications for Procedure: This is an 87-year-old female that sustained a subcapital fracture of her left hip. She was admitted to the hospital and after discussing the injury and treatment options with her and her family, they have elected to proceed with a left hip hemiarthroplasty and informed consent was obtained. Operative Findings: The operative findings are consistent with a subcapital fracture of the left hip Description of Procedure: The patient was seen and evaluated in the preoperative area and the consent was reviewed. The operative site was marked with a skin marker. The patient verified the procedure and operative site. A IVY block was placed by anesthesia in the preoperative area. The patient was then brought to the operating room and given preoperative antibiotics intravenously. 1 g of Tranexamic acid was also given intravenously. A spinal anesthetic was administered by the anesthesia department. The patient was then placed on the [place] table with the bony prominences well-padded. The hip area was then prepped with a ChloraPrep solution and draped in the usual sterile fashion. A universal timeout was then performed, which confirmed the patient's name, surgical site, ALLERGIES, and procedure being performed on the consent. Next the incision site was located at 1 cm distal and 4 cm lateral to the anterior superior iliac spine. The skin and subcutaneous tissues were sharply incised. Incision was carefully dissected down to the fascia overlying the tensor fascia minh muscle. This fascia was then incised in line with the muscle fibers. Care was taken to stay laterally in order to avoid injuring the lateral femoral cutaneous nerve. Next, using blunt finger dissection, the tensor fascia minh muscle was dissected off its investing fascia. The muscle was then carefully retracted laterally with a cobra retractor over the lateral neck of the femur. Next, the circumflex vessels were identified and cauterized using the Aquamantis device. The anterior hip capsule was then exposed. The capsule was then opened and an inverted T fashion. The retractors were then placed intracapsularly. The retractors were maintained intracapsular throughout the procedure. The proximal femur was then visualized. A small amount of traction was placed on the leg. The fracture was readily visualized. The femoral neck was then osteotomized at the appropriate level above the lesser trochanter. A small wedge of bone was then removed from the remaining femoral head. Next, using a corkscrew the femoral head was removed from the acetabulum. The femoral head was then measured. Attention was then directed to the femur. With the aid of the [place] table, the femur was externally rotated to approximately 130, extended, and adducted under the opposite leg. A side hook was then placed under the proximal femur, and the side hook elevator was used to elevate the proximal femur while releasing the capsule. Retractors were then placed. A capsular release was performed, as well as a release of the conjoined tendon, which afforded excellent visualization of the proximal femur. Next, a box osteotome was used to lateralize the proximal femur. A hand cloth folder was then used to locate the femoral canal. Sequential broaching was then performed with appropriate size which afforded excellent fixation in the proximal femur. A trial was then placed with appropriate head and neck, and the hip was gently reduced with the aid of the [place] table. Fluoroscopy was then used to check position of the components, as well as to evaluate the leg lengths and offset. The leg lengths and offset were measured as closely as possible to ensure stability of the hip. The hip was then gently dislocated and the trials were then removed. Final implants were then impacted and the hip was again reduced. Final fluoroscopic x-rays confirmed that the components were in anatomic position. The leg lengths and offset were measured and were found to coincide with the trial measurements. The hip was also taken through range of motion, and found to be stable. The hip was then copiously irrigated with antibiotic solution with pulsatile lavage. The hip was then irrigated with Irrisept solution. The soft tissues were then injected with a ropivacaine solution. A second dose of 1 g of Tranexamic acid was also given intravenously. The fascia was then closed with 2-0 strata fix suture. The subcutaneous tissue was closed with 3-0 Vicryl. The subcuticular tissue was closed with 3-0 strata fix suture. The skin was then closed with Exofin skin glue. After the glue and dried, and Optifoam silver impregnated dressing was applied. The patient was then transferred to the recovery room in stable condition. The temporary administrative assistant BRODY Rod was required due to the complexity of surgery, and the need for skilled medical surgical tech for positioning, draping, exposure, retraction, and closure of the wound.
[2023-02-14] MEDS ORDERED: CLINDAMYCIN 900 MG in DEXTROSE 5% IN WATER 50 ML IVPB SCH ×2 (16:00)
--- NOTE | 2023-02-14 16:18 | XR ---
EXAMINATION TYPE: XR Hip Limited LT DATE OF EXAM: 02/14/2023 Comparison: None Clinical History: 87-year-old female Status post hip surgery, assess surgical alignment Findings: Post surgical change of left hip hemiarthroplasty. There appears to be mild axial joint space narrowi ng. Alignment grossly anatomic. No periprosthetic fracture. Comment a left-sided phleboliths are sugg ested in the soft tissues. Impression: Uncomplicated postoperative appearance left hip hemiarthroplasty. Suspect at least mild underlying de generative change of the [place] acetabular articular cartilage.
--- NOTE | 2023-02-14 16:32 | XR ---
Intraoperative/procedural fluoroscopic services were provided. Total fluoroscopy time is 16 seconds w ith a total of 2 submitted images to PACS. Please see the operative/procedural note for further detai ls. DAP: 0.3506
--- NOTE | 2023-02-14 17:15 | FL ---
Intraoperative/procedural fluoroscopic services were provided. Total fluoroscopy time is 16.9 seconds with a total of 2 submitted images to PACS. Please see the operative/procedural note for further det ails. DAP: 0.3505
[2023-02-14] MEDS: LORATADINE 10 MG TAB PO SCH (20:41)
[2023-02-14] MEDS: HEPARIN SODIUM,PORCINE/PF 5,000 UNIT/0.5 ML SYRINGE SQ SCH (20:42)
[2023-02-14] MEDS: ASPIRIN 81 MG PO SCH (20:42)
[2023-02-14] MEDS: SENNOSIDES-DOCUSATE SODIUM 1 EACH TAB PO SCH (20:42)
[2023-02-14] MEDS: SODIUM CHLORIDE 0.9% 1,000 ML IV SCH (20:44)
--- NOTE | 2023-02-15 02:44 | PN ---
PROGRESS NOTE DATE OF SERVICE: 02/14/2023 SUBJECTIVE: This is an 87-year-old woman who was admitted with acute left femur impacted fracture, also had possible COPD/CHF exacerbation also. The patient felt better after diuresis. Patient also had CAD and stenting history also. PAST MEDICAL HISTORY: Reviewed. REVIEW OF SYSTEMS: A 14-point review is negative except as mentioned. OBJECTIVE: VITAL SIGNS: Pulse is 76, blood pressure 149/70, and respiration 16. CHEST: A few scattered rhonchi. CARDIOVASCULAR: S1, S2. ABDOMEN: Soft. LABORATORY DATA: Reviewed, potassium 3.4. Urine culture, gram-negative bacilli. ASSESSMENT: 1. Status post fall and left femoral neck fracture. 2. Possible COPD, CHF acute exacerbation. 3. History of CAD stent. 4. Urinary tract infection with gram-negative bacilli. 5. Dementia. 6. Hypertension. 7. Multiple complex medical issues. RECOMMENDATIONS: Recommended to continue current management, continue symptomatic treatment. I would recommend empiric antibiotics. Otherwise, await the final ID of the organism, otherwise other than that I would also recommend, we will continue rest of the medications and repeat labs in the morning and otherwise await cardiology pulmonary clearance for surgery and DVT prophylaxis. Further recommendations to follow. MMODL / IJN: [id number] /
[2023-02-15] MEDS: METOPROLOL SUCCINATE (ER) 25 MG TAB.ER.24H PO SCH ×3 (08:11→21:47)
[2023-02-15] MEDS: MONTELUKAST 10 MG TAB PO SCH (08:26)
[2023-02-15] MEDS: LACTOBACILLUS ACIDOPH & BULGAR 1 EACH PACKET PO SCH (08:26)
[2023-02-15] MEDS: LEVOTHYROXINE 100 MCG TAB PO SCH (08:26)
[2023-02-15] MEDS: CYANOCOBALAMIN 500 MCG TAB PO SCH (08:26)
[2023-02-15] MEDS: DULoxetine HCL 30 MG CAPSULE.DR PO SCH (08:27)
[2023-02-15] MEDS: PANTOPRAZOLE 40 MG TABLET PO SCH (08:27)
[2023-02-15] MEDS: HEPARIN SODIUM,PORCINE/PF 5,000 UNIT/0.5 ML SYRINGE SQ SCH ×2 (08:27→21:48)
[2023-02-15] MEDS: CLOPIDOGREL 75 MG TAB PO SCH (08:27)
[2023-02-15] MEDS: ATORVASTATIN 40 MG TAB PO SCH (08:27)
[2023-02-15] MEDS: VALSARTAN 80 MG TAB PO SCH (08:27)
[2023-02-15] MEDS: ESCITALOPRAM 5 MG TAB PO SCH (08:27)
[2023-02-15] MEDS: ASPIRIN 81 MG PO SCH ×2 (08:27→21:47)
[2023-02-15] MEDS: DONEPEZIL 10 MG TAB PO SCH (09:02)
[2023-02-15] MEDS: SYMBICORT 160-4.5 MCG INHALER INHALATION SCH ×2 (09:05→21:08)
[2023-02-15] MEDS: ALBUTEROL NEBULIZED 2.5 MG/3 ML INHALATION PRN ×3 (09:06→21:08)
--- NOTE | 2023-02-15 09:23 | P.PN ---
Subjective Progress Note Date: 02/15/23 History of present illness: Patient presented with a fall that resulted in a subcapital fracture of the left femur Current ALLERGIES consulted for preop assessment When I saw the patient responding she was extremely short of breath and wheezing with bilateral rhonchi and prolonged expiratory wheezing I gave her 40 of Lasix IV and ordered a breathing treatment. She denied any chest discomfort she was visibly short of breath I reassessed her after an hour. She was definitely better although still short of breath with crackles at both bases Abnormality on the chest x-ray of 11 February noted In addition blood pressure was elevated 187/100 mmHg 02/14 Patient is seen today in follow-up, multiple family members are at bedside. Yesterday, surgery was postponed due to fluid overload. Patient's blood pressure is on the high side today. Echocardiogram reveals EF 55-60% with mild mitral and tricuspid regurgitation. Mild mitral annular calcification. No pericardial effusion. Pulmonary hypertension. Orthopedics is planning for surgical intervention today at noon. 02/15 Patient underwent Left CHA anterior approach yesterday with Dr. You. No concerns over night. Patient denies hip pain, no chest pain. BP low this morning at 94/57, HR in the 70s. Physical examination: Gen: This is an 87-year-old female. She is resting in bed and appears to be comfortable at rest. VS: reviewed HEENT: Head is atraumatic, normocephalic. Pupils equal, round. Sclerae is anicteric. NECK: Supple. No JVD. . LUNGS: Mild expiratory wheeze. No intercostal retractions. HEART: Distant heart sounds Regular rate and rhythm. No murmur. ABDOMEN: Soft No tenderness. EXTREMITIES: No pedal edema. No calf tenderness. NEUROLOGICAL: Patient is awake, alert and oriented x3. Assessment: Left femoral subcapital fracture Acute respiratory distress secondary to fluid overload Hypertension uncontrolled Dyslipidemia Plan: Change Toprol XL to 12.5 mg bid and decrease frequency of Valsartan to HS only Continue close BP monitoring. Further recommendations to follow based upon clinical course. Nurse practitioner note has been reviewed, I agree with documented findings and plan of care. Patient was seen and examined. Objective - Vital Signs Vital signs: Vital Signs Temp 97.5 F L 02/15/23 08:27 Pulse 70 02/15/23 09:07 Resp 17 02/15/23 08:27 BP 94/57 02/15/23 08:27 Pulse Ox 96 02/15/23 09:07 FiO2 Intake & Output 02/14/23 02/15/23 02/15/23 18:59 06:59 18:59 Intake Total 751 Output Total 825 Balance -74 Intake: IV 751 Output: Urine 525 Estimated Blood Loss 300 Other: Voiding Method Indwelling Catheter Indwelling Catheter - Labs CBC & Chem 7: 02/14/23 06:41 02/14/23 06:41 Labs: Abnormal Lab Results - Last 24 Hours (Table) 02/14/23 02/14/23 Range/Units 06:41 06:41 RBC 4.07 L (4.10-5.20) X 10*6/uL Hgb 11.4 L (12.0-15.0) g/dL Hct 35.8 L (37.2-46.3) % MCHC 31.8 L (32.0-37.0) g/dL RDW 14.8 H (11.5-14.5) % Lymphocytes # 0.59 L (0.90-5.00) X 10*3/uL Potassium 3.4 L (3.5-5.5) mmol/L Carbon Dioxide 28.2 H (20.0-27.5) mmol/L Est GFR (CKD-EPI)NonAf 57.9 L (60.0-200.0) Glucose 113 H (70-110) mg/dL Microbiology - Last 24 Hours (Table) 02/11/23 21:44 Urine Culture - Final Urine,Voided Escherichia vulneris Erlinda albicans
[2023-02-15] MEDS: SODIUM CHLORIDE 0.9% 1,000 ML IV SCH (10:03)
--- NOTE | 2023-02-15 10:22 | P.PN ---
Subjective Progress Note Date: 02/15/23 This is an 87 year old female who is status post left hip hemiarthroplasty. This is postoperative day #1 and patient is seen and evaluated at bedside today with Dr. Luis Carlos You. Patient states that her pain is well controlled and she was able to transfer to a chair today. Patient denies any new complaints today. Objective - Vital Signs Vital signs: Vital Signs Temp 97.5 F L 02/15/23 08:27 Pulse 74 02/15/23 08:27 Resp 17 02/15/23 08:27 BP 94/57 02/15/23 08:27 Pulse Ox 96 02/15/23 08:27 FiO2 Intake & Output 02/14/23 02/15/23 02/15/23 18:59 06:59 18:59 Intake Total 751 Output Total 825 Balance -74 Intake: IV 751 Output: Urine 525 Estimated Blood Loss 300 Other: Voiding Method Indwelling Catheter Indwelling Catheter - Exam Vital signs are stable. Patient is in no acute distress and is alert and orien gabriel 3. Calf is soft and nontender to palpation. Dressing is clean, dry, and intact. Patient has full foot and ankle motion without pain or difficulty. Sensation intact. Neurovascular status and circulatory status are intact. - Labs CBC & Chem 7: 02/14/23 06:41 02/14/23 06:41 Labs: Abnormal Lab Results - Last 24 Hours (Table) 02/14/23 02/14/23 Range/Units 06:41 06:41 RBC 4.07 L (4.10-5.20) X 10*6/uL Hgb 11.4 L (12.0-15.0) g/dL Hct 35.8 L (37.2-46.3) % MCHC 31.8 L (32.0-37.0) g/dL RDW 14.8 H (11.5-14.5) % Lymphocytes # 0.59 L (0.90-5.00) X 10*3/uL Potassium 3.4 L (3.5-5.5) mmol/L Carbon Dioxide 28.2 H (20.0-27.5) mmol/L Est GFR (CKD-EPI)NonAf 57.9 L (60.0-200.0) Glucose 113 H (70-110) mg/dL Microbiology - Last 24 Hours (Table) 02/11/23 21:44 Urine Culture - Final Urine,Voided Escherichia vulneris Erlinda albicans Assessment and Plan (1) Fall Current Visit: Yes Status: Acute Code(s): W19.XXXA - UNSPECIFIED FALL, INITIAL ENCOUNTER SNOMED Code(s): 4952335 (2) Subcapital fracture of left hip Current Visit: Yes Status: Acute Code(s): S72.012A - UNSP INTRACAPSULAR FRACTURE OF LEFT FEMUR, INIT FOR CLOS FX SNOMED Code(s): 616770717 (3) Skin tear of elbow without complication Current Visit: No Status: Acute Code(s): S51.019A - LACERATION WITHOUT FOREIGN BODY OF UNSP ELBOW, INIT ENCNTR SNOMED Code(s): 319451051 Plan: Continue routine postop care and pain control. Continue anticoagulation with Plavix and aspirin. Weightbearing as tolerated with a walker. Leave dressing in place for 7 days. Appreciate input from medicine. Anticipate discharge to ECF in the next 24-48 hours.
[2023-02-15 12:24] LABS: Albumin 3.4 g/dL (3.8-4.9); Albumin/Globulin Ratio 1.58 (1.60-3.17); Anion Gap 12.6 mmol/L (10.00-18.00); BUN/Creat Ratio 21.46 Ratio (12.00-20.00); Blood Urea Nitrogen 22.1 mg/dL (9.0-27.0); Calcium 8.8 mg/dL (8.7-10.3); Carbon Dioxide 24.8 mmol/L (20.0-27.5); Globulin 2.1 g/dL (1.6-3.3); Non-African American GFR(CKD) 49.2 (60.0-200.0); Potassium 4.3 mmol/L (3.5-5.5); Total Bilirubin 0.4 mg/dL (0.30-1.20); Total Protein 5.5 g/dL (6.2-8.2)
[2023-02-15] MEDS: FOLIC ACID 1 MG TAB PO SCH (13:05)
[2023-02-15] MEDS: THIAMINE 100 MG TAB PO SCH (13:05)
[2023-02-15] MEDS: MULTIVITAMINS, THERA 1 EACH TAB PO SCH (13:05)
--- NOTE | 2023-02-15 13:25 | P.PN ---
Subjective Progress Note Date: 02/15/23 Is an 87-year-old female patient and I was asked to evaluate this patient preoperatively and a preoperative pulmonary clearance as the patient has a left hip fracture. The patient is known to have dementia, hypertension hyperlipidemia and hypothyroidism and coronary artery disease. She has undergone previous coronary stenting pH is currently living [facility]. The patient had a fall and she sustained a left hip fracture. According to the family, she's been having frequent falls. The patient has chronic arthritis and chronic back pain. The patient usually amylase without a walker. In the emergency, the patient was found to have a left femoral neck fracture. She was taking Plavix which was placed on hold and orthopedic surgery was consulted. No other skeletal injuries. She does have a skin tear over the elbow. This morning, the patient was quite short of breath. The patient had a chest x-ray at time of admission that showed right lower lobe pulmonary interstitial and airspace infiltrates and some increased interstitial markings. She was given Lasix by cardiology. She produce excellent urine output and her breathing improved. Currently she is on 2 L of oxygen by nasal cannula with pulse ox 95%. She is communicating and she is able to complete full sentences. Responded 6.3 with a hemoglobin 12.2, normal cognition profile, normal renal function with a creatinine of 0.8. Indication for a possible urinary tract infection. The patient is currently on IV Rocephin. The patient is also on doxycycline. The patient receiving Lasix periodically per cardiology. Echocardiogram was ordered. Other comorbid conditions including rheumatoid arthritis, hypertension, hyperlipidemia, hypothyroidism and previous history of skin cancer. The patient is seen today 02/14/2023 in follow-up on the regular medical floor. She is currently resting comfortably in bed. Awake and alert in no acute distress. She is awaiting surgical clearance for repair of her left hip fractur e. Presently she denies any worsening shortness of breath, cough or congestion. She is maintaining O2 saturations in the high 90s on 2 L/m per nasal cannula. She's afebrile. Hemodynamically stable. Follow-up chest x-ray reveals improving right lower lobe infiltrate. Left basilar infiltrate present. Suspect atelectasis versus pneumonia. Urine culture is positive for gram- negative bacilli. White count 7.1. Hemoglobin 11.4. Platelets 149. Sodium 143. Potassium 3.4. Bicarb 20. BUN 15. Creatinine 0.9. She is continued on Symbicort, albuterol. On ceftriaxone. Heparin for DVT prophylaxis. Echocardiogram revealed preserved left ventricular systolic function. No significant valvular heart disease. The patient is seen today 02/15/2023 in follow-up on the regular medical floor. He is currently sitting up in a chair at the bedside. Awake and alert in no acute distress. She did undergo a left hip hemiarthroplasty with a direct anterior approach for her subcapital fracture of the left hip. Tolerated the surgery well. Currently maintaining O2 saturations in the 90s on 2 L/m per nasal cannula. She was found to have a urinary tract infection secondary to Escherichia vulneris. Remains on ceftriaxone. Continued on bronchodilators. Heparin for DVT prophylaxis. Objective - Vital Signs Vital signs: Vital Signs Temp 97.5 F L 02/15/23 08:27 Pulse 70 02/15/23 09:19 Resp 18 02/15/23 11:35 BP 94/57 02/15/23 08:27 Pulse Ox 96 02/15/23 09:07 FiO2 Intake & Output 02/14/23 02/15/23 02/15/23 18:59 06:59 18:59 Intake Total 751 Output Total 825 Balance -74 Intake: IV 751 Output: Urine 525 Estimated Blood Loss 300 Other: Voiding Method Indwelling Catheter Indwelling Catheter Indwelling Catheter - Exam GENERAL EXAM: Alert, 87-year-old female, on 2 L, up in a chair at the bedside, fairly comfortable in no apparent distress. HEAD: Normocephalic. EYES: Normal reaction of pupils, equal size. NOSE: Clear with pink turbinates. THROAT: No erythema or exudates. NECK: No masses, no JVD. CHEST: No chest wall deformity. LUNGS: Equal air entry with no crackles, wheeze, rhonchi or dullness. CVS: S1 and S2 normal with no audible murmur, regular rhythm. ABDOMEN: No hepatosplenomegaly, normal bowel sounds, no guarding or rigidity. SPINE: No scoliosis or deformity SKIN: No rashes CENTRAL NERVOUS SYSTEM: No focal deficits, tone is normal in all 4 extremities. EXTREMITIES: Dressing to left hip dry and intact. There is no peripheral edema. No clubbing, no cyanosis. Peripheral pulses are intact. - Labs CBC & Chem 7: 02/14/23 06:41 02/15/23 06:58 Labs: Abnormal Lab Results - Last 24 Hours (Table) 02/15/23 Range/Units 06:58 Est GFR (CKD-EPI)AfAm 57.0 L (60.0-200.0) Est GFR (CKD-EPI)NonAf 49.2 L (60.0-200.0) BUN/Creatinine Ratio 21.46 H (12.00-20.00) Ratio Glucose 118 H (70-110) mg/dL ALT 6 L (8-44) U/L Total Protein 5.5 L (6.2-8.2) g/dL Albumin 3.4 L (3.8-4.9) g/dL Albumin/Globulin Ratio 1.58 L (1.60-3.17) g/dL Microbiology - Last 24 Hours (Table) 02/11/23 21:44 Urine Culture - Final Urine,Voided Escherichia vulneris Erlinda albicans Assessment and Plan Assessment: Acute left femoral neck fracture status post fall, status post left hip hemiarthroplasty, anterior approach, postoperative day #1 Acute hypoxic respiratory failure currently on 2 L of O2 nasal cannula Acute urinary tract infection secondary to Escherichia vulneris, currently on ceftriaxone Coronary artery disease, previous coronary intervention and stenting Poor balance with recurrent falls Dementia Hypertension Hyperlipidemia Hypothyroidism Rheumatoid arthritis Plan: The patient was seen and evaluated Labs and medications reviewed Titrate the FiO2 as tolerated Continue bronchodilators and antibiotics Heparin for DVT prophylaxis Encouraged the increased use of the incentive spirometer Plan is for subacute rehabilitation in [facility] We will continue to follow I have personally seen and examined the patient, performed the documentation and the assessment and plan as written. Number of minutes spent on the visit: 10.
[2023-02-15 13:43] LABS: Basophils # (A) 0.07 X 10*3/uL (0.00-0.10); Basophils % (A) 0.7 %; Eosinophils # (A) 0.04 X 10*3/uL (0.04-0.35); Eosinophils % (A) 0.4 %; HGB 10.4 g/dL (12.0-15.0); Immature Grans, Automated 0.3 %; Lymphocytes # (A) 0.46 X 10*3/uL (0.90-5.00); Lymphocytes % (A) 4.3 %; MCHC 31.5 g/dL (32.0-37.0); MCV 88.7 fL (80.0-97.0); Monocytes # (A) 0.73 X 10*3/uL (0.20-1.00); Monocytes % (A) 6.9 %; NRBC Per 100 WBC 0 /100 WBCS (0.0-0.0); Neutrophils % (A) 87.4 %; Platelet Count 182 X 10*3/uL (140-440); RBC 3.72 X 10*6/uL (4.10-5.20); RDW 14.9 % (11.5-14.5); WBC 10.63 X 10*3/uL (4.50-10.00)
[2023-02-15] MEDS: ACETAMINOPHEN TAB 500 MG TAB PO PRN (14:10)
[2023-02-15] MEDS ORDERED: CALCIUM CARBONATE 500 MG CHEWABLE PO PRN (16:41)
[2023-02-15] MEDS: FLUCONAZOLE 100 MG TAB PO SCH (16:47)
[2023-02-15] MEDS ORDERED: VALSARTAN 80 MG TAB PO SCH (21:00)
[2023-02-15] MEDS: LORATADINE 10 MG TAB PO SCH (21:47)
[2023-02-15] MEDS: SENNOSIDES-DOCUSATE SODIUM 1 EACH TAB PO SCH (21:47)
[2023-02-16] MEDS: ALBUTEROL NEBULIZED 2.5 MG/3 ML INHALATION PRN ×3 (04:39→13:04)
--- NOTE | 2023-02-16 07:48 | P.DS ---
Providers Date of admission: 02/11/23 23:07 Expected date of discharge: 02/16/23 Attending physician: Luis Carlos You Consults: 02/11/23 23:07 Consult Physician Routine Consulting Provider: Jona Gautam Consult Reason/Comments: Medical management and surgical clearance Do you want consulting provider notified?: Already Contacted 02/12/23 10:37 Consult Physician Urgent Consulting Provider: Christiano Flores Consult Reason/Comments: pre-op eval Do you want consulting provider notified?: Yes 02/13/23 08:28 Consult Physician Urgent Consulting Provider: Jacob Vázquez Consult Reason/Comments: sob, preop eval Do you want consulting provider notified?: Yes Primary care physician: Carlo Daevy - Discharge Diagnosis(es) (1) Closed left hip fracture Current Visit: Yes Status: Acute (2) Status post hip hemiarthroplasty Current Visit: Yes Status: Acute Hospital Course: This is an 87-year-old female who presented on 02/11/2023 after falling and sustaining injury to the left hip. On exam and x-ray in the emergency depart ment she was found to have a hip fracture. The pt is admitted to our service for surgical intervention and care. The patient is taken to surgery for hemiarthroplasty of the right hip. The procedure is performed without complication or sequelae. The patient is doing well postoperatively. Vital signs are stable on postop day #1. There are no new complaints or concerns. The patient is discharged to inpatient rehab pending medical clearance today. Please refer to the [facility] rec for accurate list of medications. Patient Condition at Discharge: Stable Plan - Discharge Summary Discharge Rx Participant: No New Discharge Prescriptions: New HYDROcodone/APAP 5-325MG [[place] 5-325] 1 - 2 tab PO Q6HR PRN #32 tab PRN Reason: Pain Sennosides [Senokot] 2 tab PO DAILY PRN #60 tablet PRN Reason: Constipation Aspirin [Adult Low Dose Aspirin EC] 81 mg PO BID 30 Days #60 tab No Action Clopidogrel [Plavix] 75 mg PO DAILY@0800 hydroCHLOROthiazide 25 mg PO DAILY@0800 DULoxetine HCL [Cymbalta] 30 mg PO DAILY@0800 Lactobacillus Acidophilus [Acidophilus Probiotic] 1 cap PO DAILY@0800 Levothyroxine Sodium [Synthroid] 100 mcg PO DAILY@0800 Metoprolol Succinate [Metoprolol Succinate ER] 25 mg PO DAILY@0800 Ubidecarenone [Coenzyme Q10] 50 mg PO DAILY@0800 Albuterol Nebulized [Ventolin Nebulized] 2.5 mg INHALATION RT-QID@08,12,16, Budesonide [Pulmicort] 0.5 mg INHALATION RT-BID@0800,1999 Calcium Carbonate [Tums] 500 mg PO DAILY@0800 Cyanocobalamin (Vitamin B-12) [Vitamin B-12] 1,000 mcg PO DAILY@0800 Escitalopram [Lexapro] 5 mg PO DAILY@0800 Irbesartan [Avapro] 75 mg PO DAILY@0800 Levocetirizine Dihydrochloride 5 mg PO HS@1999 Montelukast [Singulair] 10 mg PO DAILY@0800 Pantoprazole Sodium 20 mg PO DAILY@0800 Rivastigmine Tartrate [Exelon] 3 mg PO BID@0800,1700 Rosuvastatin [Crestor] 20 mg PO DAILY@0800 Discharge Medication List Clopidogrel [Plavix] 75 mg PO DAILY@0800 04/20/15 [History] hydroCHLOROthiazide 25 mg PO DAILY@0800 09/19/15 [History] Albuterol Nebulized [Ventolin Nebulized] 2.5 mg INHALATION RT-QID@08,12,16,20 11/19/22 [History] Budesonide [Pulmicort] 0.5 mg INHALATION RT-BID@0800,199911/19/22 [History] Calcium Carbonate [Tums] 500 mg PO DAILY@0800 11/19/22 [History] Cyanocobalamin (Vitamin B-12) [Vitamin B-12] 1,000 mcg PO DAILY@0811/19/22 [History] DULoxetine HCL [Cymbalta] 30 mg PO DAILY@0811/19/22 [History] Escitalopram [Lexapro] 5 mg PO DAILY@0811/19/22 [History] Irbesartan [Avapro] 75 mg PO DAILY@0811/19/22 [History] Lactobacillus Acidophilus [Acidophilus Probiotic] 1 cap PO DAILY@0811/19/22 [History] Levocetirizine Dihydrochloride 5 mg PO HS@199911/19/22 [History] Levothyroxine Sodium [Synthroid] 100 mcg PO DAILY@0800 11/19/22 [History] Metoprolol Succinate [Metoprolol Succinate ER] 25 mg PO DAILY@0811/19/22 [History] Montelukast [Singulair] 10 mg PO DAILY@0800 11/19/22 [History] Pantoprazole Sodium 20 mg PO DAILY@0800 11/19/22 [History] Rivastigmine Tartrate [Exelon] 3 mg PO BID@0800,1700 11/19/22 [History] Rosuvastatin [Crestor] 20 mg PO DAILY@0800 11/19/22 [History] Ubidecarenone [Coenzyme Q10] 50 mg PO DAILY@0811/19/22 [History] Aspirin [Adult Low Dose Aspirin EC] 81 mg PO BID 30 Days #60 tab 02/14/23 [Rx] HYDROcodone/APAP 5-325MG [[place] 5-325] 1 - 2 tab PO Q6HR PRN #32 tab 02/14/23 [Rx] Sennosides [Senokot] 2 tab PO DAILY PRN #60 tablet 02/14/23 [Rx] Follow up Appointment(s)/Referral(s): Carlo Davey MD [Primary Care Provider] - 1-2 days Ayo Hernandes [NON-STAFF] - As Needed Luis Carlos You DO [Doctor of Osteopathic Medicine] - 2 Weeks Activity/Diet/Wound Care/Special Instructions: Weightbearing as tolerated with walker. Leave dressing intact. Dressing may be removed by home care nurse or by patient in 7 days. Then change dressing twice daily until follow up. May shower with initial dressing intact and after removal. If dressing become saturated, please remove. Please resume Plavix. Recommend aspirin 81mg BID for 30 days postoperatively to help prevent blood clots. Recommend use of compression stockings daily until follow up to help prevent swelling and blood clots. May remove at night before sleeping. Please follow-up with [facility] in 2 weeks and call with any questions or concerns, . Discharge Disposition: TRANSFER TO SNF/F
[2023-02-16 08:14] VITALS: BP 152/78; RESP 16; TEMP 99.4
[2023-02-16] MEDS: METOPROLOL SUCCINATE (ER) 25 MG TAB.ER.24H PO SCH (08:44)
[2023-02-16] MEDS: HEPARIN SODIUM,PORCINE/PF 5,000 UNIT/0.5 ML SYRINGE SQ SCH (08:44)
[2023-02-16] MEDS: FLUCONAZOLE 100 MG TAB PO SCH (08:44)
[2023-02-16] MEDS: CYANOCOBALAMIN 500 MCG TAB PO SCH (08:44)
[2023-02-16] MEDS: LACTOBACILLUS ACIDOPH & BULGAR 1 EACH PACKET PO SCH (08:44)
[2023-02-16] MEDS: DONEPEZIL 10 MG TAB PO SCH (08:45)
[2023-02-16] MEDS: ESCITALOPRAM 5 MG TAB PO SCH (08:45)
[2023-02-16] MEDS: ASPIRIN 81 MG PO SCH (08:45)
[2023-02-16] MEDS: PANTOPRAZOLE 40 MG TABLET PO SCH (08:45)
[2023-02-16] MEDS: MONTELUKAST 10 MG TAB PO SCH (08:45)
[2023-02-16] MEDS: DULoxetine HCL 30 MG CAPSULE.DR PO SCH (08:45)
[2023-02-16] MEDS: LEVOTHYROXINE 100 MCG TAB PO SCH (08:45)
[2023-02-16] MEDS: CLOPIDOGREL 75 MG TAB PO SCH (08:45)
[2023-02-16] MEDS: ATORVASTATIN 40 MG TAB PO SCH (08:45)
--- NOTE | 2023-02-16 09:33 | PN ---
PROGRESS NOTE DATE OF SERVICE: 02/15/2023 SUBJECTIVE: This is an 87-year-old woman who was admitted with left femur fracture, underwent left hip hemiarthroplasty with a direct anterior approach. No chest pain. No palpitations. No fever. OBJECTIVE: VITAL SIGNS: Pulse is 70, blood pressure is ntd, respirations 17. HEENT: Conjunctivae normal. NECK: No JVD. CARDIOVASCULAR: S1, S2. RESPIRATIONS: A few scattered rhonchi. ABDOMEN: Soft. LEGS: Status post surgery. LABORATORY DATA: Reviewed. ASSESSMENT: 1. Status post left hip hemiarthroplasty. 2. Possible chronic obstructive pulmonary disease, congestive heart failure acute exacerbation. 3. History of coronary artery disease stent. 4. Urinary tract infection with Escherichia vulneris and Erlinda albicans. 5. Dementia. 6. Hypertension. 7. Multiple complex medical issues. RECOMMENDATIONS AND DISCUSSION: Recommend to continue current medications, continue symptomatic treatment. Otherwise, continue with antibiotics, antifungals, DVT prophylaxis, incentive spirometry, PT, OT evaluation, possible ECF rehab. Closely follow with Orthopedic Surgery. Further recommendations to follow. MMODL / IJN: [id number] / MTDD
[2023-02-16] MEDS: ACETAMINOPHEN TAB 500 MG TAB PO PRN (09:38)
--- NOTE | 2023-02-16 09:44 | P.PN ---
Subjective Progress Note Date: 02/16/23 History of present illness: Patient presented with a fall that resulted in a subcapital fracture of the left femur Current ALLERGIES consulted for preop assessment When I saw the patient responding she was extremely short of breath and wheezing with bilateral rhonchi and prolonged expiratory wheezing I gave her 40 of Lasix IV and ordered a breathing treatment. She denied any chest discomfort she was visibly short of breath I reassessed her after an hour. She was definitely better although still short of breath with crackles at both bases Abnormality on the chest x-ray of 11 February noted In addition blood pressure was elevated 187/100 mmHg 02/14 Patient is seen today in follow-up, multiple family members are at bedside. Yesterday, surgery was postponed due to fluid overload. Patient's blood pressure is on the high side today. Echocardiogram reveals EF 55-60% with mild mitral and tricuspid regurgitation. Mild mitral annular calcification. No pericardial effusion. Pulmonary hypertension. Orthopedics is planning for surgical intervention today at noon. 02/15 Patient underwent Left CHA anterior approach yesterday with Dr. You. No concerns over night. Patient denies hip pain, no chest pain. BP low this morning at 94/57, HR in the 70s. 02/16 Patient denies having any chest pain or shortness of breath. Pain to her left femur seems to be controlled. She is planning for discharge to [facility] today. We made adjustments to her blood pressure medications yesterday. Blood pressure this morning is 152/78, heart rate is in the 70s. Physical examination: Gen: This is an 87-year-old female. She is resting in bed and appears to be comfortable at rest. VS: reviewed HEENT: Head is atraumatic, normocephalic. Pupils equal, round. Sclerae is anicteric. NECK: Supple. No JVD. . LUNGS: Mild expiratory wheeze. No intercostal retractions. HEART: Distant heart sounds Regular rate and rhythm. No murmur. ABDOMEN: Soft No tenderness. EXTREMITIES: No pedal edema. No calf tenderness. NEUROLOGICAL: Patient is awake, alert and oriented x3. Assessment: Left femoral subcapital fracture Acute respiratory distress secondary to fluid overload Hypertension uncontrolled Dyslipidemia Plan: Continue current cardiac medications Patient is cleared for discharge from cardiology. Nurse practitioner note has been reviewed, I agree with documented findings and plan of care. Patient was seen and examined. Objective - Vital Signs Vital signs: Vital Signs Temp 98.6 F 02/15/23 19:48 Pulse 75 02/16/23 04:47 Resp 18 02/15/23 20:53 BP 118/67 02/15/23 19:48 Pulse Ox 94 L 02/15/23 19:48 FiO2 Intake & Output 02/15/23 02/16/23 02/16/23 18:59 06:59 18:59 Output Total 400 Balance -400 Output: Stool 400 Other: Voiding Method Indwelling Catheter Indwelling Catheter # Voids 1 - Labs CBC & Chem 7: 02/15/23 06:58 02/15/23 06:58 Labs: Abnormal Lab Results - Last 24 Hours (Table) 02/15/23 02/15/23 Range/Units 06:58 06:58 WBC 10.63 H (4.50-10.00) X 10*3/uL RBC 3.72 L (4.10-5.20) X 10*6/uL Hgb 10.4 L (12.0-15.0) g/dL Hct 33.0 L (37.2-46.3) % MCHC 31.5 L (32.0-37.0) g/dL RDW 14.9 H (11.5-14.5) % Neutrophils # 9.30 H (1.80-7.70) X 10*3/uL Lymphocytes # 0.46 L (0.90-5.00) X 10*3/uL Est GFR (CKD-EPI)AfAm 57.0 L (60.0-200.0) Est GFR (CKD-EPI)NonAf 49.2 L (60.0-200.0) BUN/Creatinine Ratio 21.46 H (12.00-20.00) Ratio Glucose 118 H (70-110) mg/dL ALT 6 L (8-44) U/L Total Protein 5.5 L (6.2-8.2) g/dL Albumin 3.4 L (3.8-4.9) g/dL Albumin/Globulin Ratio 1.58 L (1.60-3.17) g/dL
[2023-02-16] MEDS: SYMBICORT 160-4.5 MCG INHALER INHALATION SCH (09:47)
[2023-02-16] MEDS: SODIUM CHLORIDE 0.9% 1,000 ML IV SCH (11:00)
[2023-02-16] MEDS: THIAMINE 100 MG TAB PO SCH (11:34)
[2023-02-16] MEDS: FOLIC ACID 1 MG TAB PO SCH (11:34)
[2023-02-16] MEDS: MULTIVITAMINS, THERA 1 EACH TAB PO SCH (11:34)
[2023-02-16 13:18] VITALS: PULSE 98
--- NOTE | 2023-02-16 13:36 | PN ---
PROGRESS NOTE DATE OF SERVICE: 02/16/2023 SUBJECTIVE: This is an 87-year-old woman who was admitted after left hip hemiarthroplasty, had some UTI also. No chest pain, no palpitations. The patient is scheduled to go to [facility]. PHYSICAL EXAMINATION: VITAL SIGNS: Pulse is 90, blood pressure 152/78, respirations 16. CHEST: Clear to auscultation. CARDIOVASCULAR: S1, S2. ABDOMEN: Soft. LEGS: Status post surgery. LABORATORY DATA: Reviewed. ASSESSMENT: 1. Status post left hip hemiarthroplasty. 2. Chronic obstructive pulmonary disease, congestive heart failure acute exacerbation. 3. History of coronary artery disease, stent. 4. Urinary tract infection with Escherichia vulneris and Erlinda albicans. 5. Dementia. 6. Hypertension. 7. Multiple complex medical issues. RECOMMENDATIONS: Recommended to continue current management, continue symptomatic treatment. Will complete short course of antibiotics and DVT prophylaxis. Rest of the recommendations per Orthopedic surgery. F rehab. EFE / SHERLY: [id number] /
[2023-02-16] MEDS ORDERED: HEPARIN SODIUM,PORCINE/PF 5,000 UNIT/0.5 ML SYRINGE SQ SCH (16:00)
--- NOTE | 2023-02-18 14:45 | CDI ---
Documentation Clarification Form Date: 02/18/2023 2:29:27 PM From: Lauren Rodrigez Admit Date: 02/11/2023 11:07:00 PM Patient Name: Laura Wiggins Visit Number: [id number] Discharge Date: 02/16/2023 3:00:00 PM ATTENTION: The Clinical Documentation Specialists (CDI) and [facility] Coding Staff appreciate your assistance in clarifying documentation. Please respond to the clarification below the line at the bottom and electronically sign. The CDI & [facility] Coding staff will review the response and follow-up if needed. Please note: Queries are made part of the Legal Health Record. If you have any questions, please contact the author of this message via ITS. Dr. Alfredo Andrade Your patient has the documented diagnosis of unspecified CHF with acute exacerbation in Progress notes 02/15 and 02/16. Additional information regarding the type and acuity of CHF is requested. Progress Note 02/13: fluid overload suspicious for acute CHF unknown EF Progress Notes 02/15 and 02/16: congestive heart failure acute exacerbation History/Risk Factors: 87-year-old female presented after a fall and found to have a subcapital left hip fracture. Patient has a history of COPD, dementia, hyperlipidemia, hypertension, HX GA, and thyroid disorder. No mention of history of CHF Clinical Indicators: fluid overload, extremely short of breath, wheezing, suspect atelectasis versus pneumonia, also has a possible acute exacerbation of CHF, acute exacerbation of COPD, UTI, and acute respiratory failure Echocardiogram Results: left ventricular ejection fraction is estimated at 55- 60 %. Chest x-ray: 02/11/23 there is some right lower lobe pulmonary interstitial and airspace infiltrate which is mostly new compared to last exam. No obvious heart failure Chest x-ray: 02/14/23 right perihilar infiltrate present previously. Right lower lobe infiltrate may be improving. Some left basilar infiltrate may be present. Correlate for atelectasis and pneumonia Treatment: start Augmentin changed to ceftriaxone and doxycycline due to interaction between donepezil and zithromax, check pro- calcitonin, given Lasix by cardiology, and breathing treatments In your professional opinion, can you please clarify the acuity and type of CHF if known? [ ] Acute Diastolic Heart Failure (preserved EF) [ ] Acute on Chronic Diastolic Heart Failure (preserved EF) [ ] Other, please specify [ ] Unable to determine Acute Diastolic Heart Failure (preserved EF) MTDD
--- NOTE | 2023-02-18 14:46 | CDI ---
Documentation Clarification Form Date: 02/18/2023 2:08:58 PM From: Lauren Rodrigez Admit Date: 02/11/2023 11:07:00 PM Patient Name: Laura Wiggins Visit Number: [id number] Discharge Date: 02/16/2023 3:00:00 PM ATTENTION: The Clinical Documentation Specialists (CDI) and [facility] Coding Staff appreciate your assistance in clarifying documentation. Please respond to the clarification below the line at the bottom and electronically sign. The CDI & [facility] Coding staff will review the response and follow-up if needed. Please note: Queries are made part of the Legal Health Record. If you have any questions, please contact the author of this message via ITS. Dr. Anival Salazar Right lower lobe pulmonary interstitial and airspace infiltrate suspicious for pneumonia is documented in the medical consultation 02/12/23, but is not noted in subsequent documentation. Clarification is requested. History/Risk Factors: 87-year-old female presented after a fall and found to have a subcapital left hip fracture. Patient has a history of COPD, dementia, hyperlipidemia, hypertension, HX CO, and thyroid disorder. Clinical Indicators: right lower lobe pulmonary interstitial and airspace infiltrate per radiologist, suspicious for pneumonia. Suspect atelectasis versus pneumonia, also has a possible acute exacerbation of CHF, acute exacerbation of COPD, UTI, and acute respiratory failure Chest x-ray: 02/11/23 there is some right lower lobe pulmonary interstitial and airspace infiltrate which is mostly new compared to last exam. No obvious heart failure Chest x-ray: 02/14/23 right perihilar filtrate present previously. Right lower lobe infiltrate may be improving. Some left basilar infiltrate may be present. Correlate for atelectasis and pneumonia. Treatment: start Augmentin changed to ceftriaxone and doxycycline due to interaction between donepezil and zithromax, check pro- calcitonin, given Lasix by cardiology, and breathing treatments Please clarify if the Pneumonia is: [ ] Pneumonia confirmed/suspected, remains under treatment [ ] Pneumonia confirmed/suspected, resolved [ ] Pneumonia ruled out [ ] Other condition, please specify [ ] Unable to determine pneumonia is unlikely MTDD
== END 2023-02-16 15:00 | DRG 521 ==
LOC: EC 21:37 → 4SSUR 23:07
PROVIDERS: ADMIT Orthopaedic Surgery; ATTEND Orthopaedic Surgery
PROC: 0SRS01A Replacement of Left Hip Joint, Femoral Surface with Metal Synthetic Substitute, Uncemented, Open Approach (ICD-10-PCS; principal; 2023-02-14 14:51)
DX: S72.012A Unspecified intracapsular fracture of left femur, initial encounter for closed fracture (principal); I50.31 Acute diastolic (congestive) heart failure; J96.01 Acute respiratory failure with hypoxia; B37.49 Other urogenital candidiasis; J44.1 Chronic obstructive pulmonary disease with (acute) exacerbation; J98.11 Atelectasis; N39.0 Urinary tract infection, site not specified; W18.30XA Fall on same level, unspecified, initial encounter; S51.012A Laceration without foreign body of left elbow, initial encounter; F03.90 Unspecified dementia, unspecified severity, without behavioral disturbance, psychotic disturbance, mood disturbance, and anxiety; E78.5 Hyperlipidemia, unspecified; M06.9 Rheumatoid arthritis, unspecified; E03.9 Hypothyroidism, unspecified; B96.29 Other Escherichia coli [E. coli] as the cause of diseases classified elsewhere; I11.0 Hypertensive heart disease with heart failure; Y92.039 Unspecified place in apartment as the place of occurrence of the external cause; I25.10 Atherosclerotic heart disease of native coronary artery without angina pectoris; M19.90 Unspecified osteoarthritis, unspecified site; Z66 Do not resuscitate; Z20.822 Contact with and (suspected) exposure to COVID-19; R29.6 Repeated falls; M48.061 Spinal stenosis, lumbar region without neurogenic claudication; G89.29 Other chronic pain; M54.2 Cervicalgia; Z91.81 History of falling; Z95.5 Presence of coronary angioplasty implant and graft; Z86.73 Personal history of transient ischemic attack (TIA), and cerebral infarction without residual deficits; Z87.891 Personal history of nicotine dependence; Z88.1 Allergy status to other antibiotic agents; I25.2 Old myocardial infarction; Z87.440 Personal history of urinary (tract) infections; Z85.828 Personal history of other malignant neoplasm of skin; Z79.899 Other long term (current) drug therapy; Z79.890 Hormone replacement therapy; Z79.02 Long term (current) use of antithrombotics/antiplatelets
CPT/HCPCS: 36415; 70450; 71045; 72125; 73501; 73502; 80048; 80053; 80306; 80320; 81001; 85025; 85610; 85730; 86850; 86900; 86901; 87077; 87086; 87186; 87635; 88305; 88311; 90471; 90715; 93005; 93306; 94640; 94760; 96361; 96374; 96375; 99285

== ENCOUNTER 2023-06-29 11:02 | Emergency (ER) | payer MEDICARE, BC ==
[2023-06-29 11:14] VITALS: TEMP 98.3
--- NOTE | 2023-06-29 11:42 | ED ---
Fall HPI - General Chief Complaint: Fall Stated Complaint: fall,on thinners Time Seen by Provider: 06/29/23 11:25 Source: patient, family Mode of arrival: wheelchair - History of Present Illness Initial Comments: The patient is a 87-year-old female with a history of dementia, hypertension, hyperlipidemia, COPD, CAD who presents to the emergency room accompanied by her son after a fall. Patient was at her assisted living facility when she had an unwitnessed fall. The staff at the facility immediately heard the thud when she fell and went in to evaluate the patient. The patient was alert and did not use consciousness. She was found flat on her back with her head on the ground. Patient is on Plavix. She had some mild dizziness initially however this has since resolved. Patient is unsure of what caused her to fall. Her son at the bedside states she has a history of falls and this is not uncommon. The patient denies any current chest pain, shortness breath, cough, fevers, hemoptysis, pain in the upper or lower extremities. She does not believe she felt ill prior to calling. Patient uses a walker or wheelchair for ambulation however does occasionally try to take a few steps by herself per her son. Her son denies any history of syncope - Related Data Home Medications Medication Instructions Recorded Confirmed Clopidogrel [Plavix] 75 mg PO DAILY 04/20/15 06/29/23 Albuterol Nebulized [Ventolin 2.5 mg INHALATION RT-QID 11/19/22 06/29/23 Nebulized] Budesonide [Pulmicort] 0.5 mg INHALATION RT-BID 11/19/22 06/29/23 Cyanocobalamin (Vitamin B-12) 1,000 mcg PO DAILY@79911/19/22 06/29/23 [Vitamin B-12] DULoxetine HCL [Cymbalta] 30 mg PO DAILY@79911/19/22 06/29/23 Irbesartan [Avapro] 75 mg PO DAILY@79911/19/22 06/29/23 Lactobacillus Acidophilus 1 cap PO DAILY@79911/19/22 06/29/23 [Acidophilus Probiotic] Levocetirizine Dihydrochloride 5 mg PO HS@199911/19/22 06/29/23 Levothyroxine Sodium [Synthroid] 100 mcg PO DAILY@0800 11/19/22 06/29/23 Montelukast [Singulair] 10 mg PO HS 11/19/22 06/29/23 Pantoprazole Sodium 20 mg PO DAILY@0800 11/19/22 06/29/23 Rivastigmine Tartrate [Exelon] 3 mg PO BID@0800,1700 11/19/22 06/29/23 Rosuvastatin [Crestor] 20 mg PO DAILY@0800 11/19/22 06/29/23 Ubidecarenone [Coenzyme Q10] 50 mg PO DAILY@0800 11/19/22 06/29/23 Cholestyramine (with Sugar) 4 gm PO DAILY 06/29/23 06/29/23 [Cholestyramine Packet] Folic Acid 1 mg PO DAILY 06/29/23 06/29/23 Loperamide [Imodium] 2 mg PO QID PRN 06/29/23 06/29/23 Multivitamins, Thera [Multivitamin 1 tab PO DAILY 06/29/23 06/29/23 (formulary)] Na Phos,M-B/Na Phos,Di-Ba [Fleet 133 ml RECTAL DAILY PRN 06/29/23 06/29/23 Adult] bisacodyL 10 mg RECTAL DAILY PRN 06/29/23 06/29/23 hydroCHLOROthiazide [Hydrodiuril] 25 mg PO DAILY 06/29/23 06/29/23 Previous Rx's Medication Instructions Recorded Acetaminophen Tab [Tylenol] 500 mg PO Q6HR PRN tab 02/16/23 Magnesium Hydroxide [Milk of 2,400 mg PO DAILY PRN ml 02/16/23 Magnesia Concentrate] Metoprolol Succinate (ER) [Toprol 12.5 mg PO BID tab 02/16/23 XL] Thiamine [Vitamin B-1] 100 mg PO DAILY@1200 tab 02/16/23 Sulfamethox-Tmp 800-160Mg [Bactrim 1 each PO Q12HR #14 tab 06/29/23 Ds] Allergies Allergy/AdvReac Type Severity Reaction Status Date / Time cephalexin [From Keflex] AdvReac Unknown Verified 06/29/23 13:15 Review of Systems ROS Statement: Those systems with pertinent positive or pertinent negative responses have been documented in the HPI. ROS Other: All systems not noted in ROS Statement are negative. Past Medical History Past Medical History: Dementia, Hyperlipidemia, Hypertension, Myocardial Infarction ([place]), Thyroid Disorder Additional Past Medical History / Comment(s): wound R leg from fall, cardiac stents placed, TIA's Last Myocardial Infarction Date:: 2007 History of Any Multi-Drug Resistant Organisms: None Reported Past Surgical History: Appendectomy, Heart Catheterization With Stent, Orthopedic Surgery, Tonsillectomy Additional Past Surgical History / Comment(s): hip fracture Past Anesthesia/Blood Transfusion Reactions: No Reported Reaction Date of Last Stent Placement:: 2007 Past Psychological History: No Psychological Hx Reported Smoking Status: Former smoker Past Alcohol Use History: Rare Past Drug Use History: None Reported - Past Family History Sister(s) Family Medical History: Cancer General Exam Limitations: physical limitation General appearance: alert, in no apparent distress Head exam: Present: atraumatic, normocephalic, other (No signs of head trauma no hemotympanum bilaterally. Pupils are unreactive bilaterally. Negative for any bowel sign and raccoon eyes. Alert and oriented 2.) Eye exam: Present: normal appearance, PERRL Pupils: Present: normal accommodation ENT exam: Present: normal exam Neck exam: Present: normal inspection, other (No midline tenderness on range of motion of the head and neck.) Respiratory exam: Present: normal lung sounds bilaterally Cardiovascular Exam: Present: regular rate Extremities exam: Present: normal inspection, full ROM, other (No new pain with range of motion of the hips and lower extremities. No deformities no shortening of the legs. Patient can move upper extremities without any limitations or signs of pain.) Expanded Back exam: Present: other (No pain) Neurological exam: Present: alert Skin exam: Present: warm, intact Course Vital Signs 06/29/23 06/29/23 11:06 15:20 Temperature 98.3 F Pulse Rate 72 62 Respiratory 20 18 Rate Blood Pressure 183/84 168/71 O2 Sat by Pulse 97 99 Oximetry - Reevaluation(s) Reevaluation #1: 06/29/23 1250 Patient is well-appearing emergency room. There is no obvious hematomas on physical exam. She is alert and oriented 2. She has no complaints at this time. She is moving all tremors without limitations. I discussed her lab and imaging results with the patient and the son at the bedside. Head CT is negative for any skull fracture or hemorrhage or other acute changes. The labs show a urinary tract (which she has a history of) but other labs including troponin are within normal limits. There is no significant changes on the EKG. I discussed treatment plan of the urinary tract infection and follow-up with PCP. Discussed signs to return to the emergency room. Patient and son und erstand and agree to treatment discharge plan. Medical Decision Making - Medical Decision Making Was pt. sent in by a medical professional or institution (, [facility], PCAT INSTRUCTOR, urgent care, hospital, or [place] [facility] facility...) When possible be specific @ -[No] Did you speak to anyone other than the patient for history (EMS, parent, family, police, friend...)? What history was obtained from this source @ -Son at the bedside Did you review nursing and triage notes (agree or disagree)? Why? @ -[I reviewed and agree with nursing and triage notes] Were old charts reviewed (outside hosp., previous admission, EMS record, old EKG, old radiological studies, urgent care reports/EKG's, [place] [facility] facility records)? Report findings @ -Joest cultures were reviewed Differential Diagnosis (chest pain, altered mental status, abdominal pain women, abdominal pain men, vaginal bleeding, weakness, fever, dyspnea, syncope, headache, dizziness, GI bleed, back pain, seizure, CVA, palpatations, mental h ealth, musculoskeletal)? @ -Loss of balance, fall, syncope, skull fracture, hemorrhage, head contusion EKG interpreted by me (3pts min.). @ -EKG shows sinus at a rate of 65 beats per minute, low voltage QRS, no acute ST segment elevation, nonspecific anterior lead changes. X-rays interpreted by me (1pt min.). @ -[None done] CT interpreted by me (1pt min.). @ -CT is negative for any obvious skull fracture or hemorrhage however radiology report is pending for confirmation of acute changes. U/S interpreted by me (1pt. min.). @ -[None done] What testing was considered but not performed or refused? (CT, X-rays, U/S, labs)? Why? @ -[None] What meds were considered but not given or refused? Why? @ -[None] Did you discuss the management of the patient with other professionals (professionals i.e. , PA, PCAT INSTRUCTOR, lab, RT, psych nurse, social services director, formula mixer, teacher, fire information officer, behavioral health case manager)? Give summary @ -Discussed patient's symptoms are And management with attending ED physician Dr. Whiteside Was smoking cessation discussed for >3mins.? @ -[No] Was critical care preformed (if so, how long)? @ -[No] Were there social determinants of health that impacted care today? How? (Homelessness, low income, unemployed, alcoholism, drug addiction, transportation, low edu. Level, literacy, decrease access to med. care, halfway, rehab)? @ -Housing in mobility. Patient uses a walker or wheelchair at home. She lives in a independent/assisted living facility Was there de-escalation of care discussed even if they declined (Discuss DNR or withdrawal of care, Hospice)? DNR status @ -[No] What co-morbidities impacted this encounter? (DM, HTN, Smoking, COPD, CAD, Cancer, CVA, ARF, Chemo, Hep., AIDS, mental health diagnosis, sleep apnea, morbi d obesity)? @ -[None] Was patient admitted / discharged? Hospital course, mention meds given and route, prescriptions, significant lab abnormalities, going to OR and other pertinent info. @ -Patient will be discharged home with outpatient antibiotics for the UTI and head injury protocol. She is to follow-up with the PCP. Undiagnosed new problem with uncertain prognosis? @ -[No] Drug Therapy requiring intensive monitoring for toxicity (Heparin, Nitro, Insulin, Cardizem)? @ -[No] Were any procedures done? @ -[No] Diagnosis/symptom? @ -Head injury without loss consciousness, fall, UTI Acute, or Chronic, or Acute on Chronic? @ -Acute Uncomplicated (without systemic symptoms) or Complicated (systemic symptoms)? @ -Uncomplicated Side effects of treatment? @ -[No] Exacerbation, Progression, or Severe Exacerbation? @ -[No] Poses a threat to life or bodily function? How? (Chest pain, [place], [place], pneumonia, PE, COPD, DKA, ARF, appy, cholecystitis, CVA, Diverticulitis, Homicidal, Suicidal, threat to staff... and all critical care pts) @ -[No] - Lab Data Result diagrams: 06/29/23 12:18 06/29/23 12:59 Lab Results 06/29/23 06/29/23 06/29/23 Range/Units 12:18 12:59 12:59 WBC 7.9 (3.8-10.6) k/uL RBC 4.70 (3.80-5.40) m/uL Hgb 12.9 (11.4-16.0) gm/dL Hct 39.6 (34.0-46.0) % MCV 84.2 (80.0-100.0) fL MCH 27.5 (25.0-35.0) pg MCHC 32.7 (31.0-37.0) g/dL RDW 15.2 (11.5-15.5) % Plt Count 195 (150-450) k/uL MPV 8.4 Neutrophils % 84 % Lymphocytes % 8 % Monocytes % 5 % Eosinophils % 2 % Basophils % 0 % Neutrophils # 6.6 (1.3-7.7) k/uL Lymphocytes # 0.7 L (1.0-4.8) k/uL Monocytes # 0.4 (0-1.0) k/uL Eosinophils # 0.1 (0-0.7) k/uL Basophils # 0.0 (0-0.2) k/uL Sodium 136 L (137-145) mmol/L Potassium 4.0 (3.5-5.1) mmol/L Chloride 103 (98-107) mmol/L Carbon Dioxide 26 (22-30) mmol/L Anion Gap 7 mmol/L BUN 15 (7-17) mg/dL Creatinine 0.78 (0.52-1.04) mg/dL Est GFR (CKD-EPI)AfAm 80 (>60 ml/min/1.73 sqM) Est GFR (CKD-EPI)NonAf 69 (>60 ml/min/1.73 sqM) Glucose 103 H (74-99) mg/dL Calcium 9.5 (8.4-10.2) mg/dL Total Bilirubin 0.6 (0.2-1.3) mg/dL AST 20 (14-36) U/L ALT 9 (4-34) U/L Alkaline Phosphatase 102 (38-126) U/L Troponin I <0.012 (0.000-0.034) ng/mL Total Protein 6.7 (6.3-8.2) g/dL Albumin 3.9 (3.5-5.0) g/dL Urine Color Urine Appearance (Clear) Urine pH (5.0-8.0) Ur Specific [place] (1.001-1.035) Urine Protein (Negative) Urine Glucose (UA) (Negative) Urine Ketones (Negative) Urine Blood (Negative) Urine Nitrite (Negative) Urine Bilirubin (Negative) Urine Urobilinogen (<2.0) mg/dL Ur Leukocyte Esterase (Negative) Urine RBC (0-5) /hpf Urine WBC (0-5) /hpf Urine WBC Clumps (None) /hpf Ur Squamous Epith Cells (0-4) /hpf Urine Bacteria (None) /hpf Urine Mucus (None) /hpf 06/29/23 Range/Units 14:17 WBC (3.8-10.6) k/uL RBC (3.80-5.40) m/uL Hgb (11.4-16.0) gm/dL Hct (34.0-46.0) % MCV (80.0-100.0) fL MCH (25.0-35.0) pg MCHC (31.0-37.0) g/dL RDW (11.5-15.5) % Plt Count (150-450) k/uL MPV Neutrophils % % Lymphocytes % % Monocytes % % Eosinophils % % Basophils % % Neutrophils # (1.3-7.7) k/uL Lymphocytes # (1.0-4.8) k/uL Monocytes # (0-1.0) k/uL Eosinophils # (0-0.7) k/uL Basophils # (0-0.2) k/uL Sodium (137-145) mmol/L Potassium (3.5-5.1) mmol/L Chloride (98-107) mmol/L Carbon Dioxide (22-30) mmol/L Anion Gap mmol/L BUN (7-17) mg/dL Creatinine (0.52-1.04) mg/dL Est GFR (CKD-EPI)AfAm (>60 ml/min/1.73 sqM) Est GFR (CKD-EPI)NonAf (>60 ml/min/1.73 sqM) Glucose (74-99) mg/dL Calcium (8.4-10.2) mg/dL Total Bilirubin (0.2-1.3) mg/dL AST (14-36) U/L ALT (4-34) U/L Alkaline Phosphatase (38-126) U/L Troponin I (0.000-0.034) ng/mL Total Protein (6.3-8.2) g/dL Albumin (3.5-5.0) g/dL Urine Color Yellow Urine Appearance Turbid H (Clear) Urine pH 7.0 (5.0-8.0) Ur Specific [place] 1.016 (1.001-1.035) Urine Protein Trace H (Negative) Urine Glucose (UA) Negative (Negative) Urine Ketones Negative (Negative) Urine Blood Large H (Negative) Urine Nitrite Positive H (Negative) Urine Bilirubin Negative (Negative) Urine Urobilinogen <2.0 (<2.0) mg/dL Ur Leukocyte Esterase Large H (Negative) Urine RBC 100 H (0-5) /hpf Urine WBC 157 H (0-5) /hpf Urine WBC Clumps Occasional H (None) /hpf Ur Squamous Epith Cells 43 H (0-4) /hpf Urine Bacteria Moderate H (None) /hpf Urine Mucus Rare H (None) /hpf - EKG Data -: EKG Interpreted by Me Disposition Clinical Impression: Head injury without concussion or intracranial hemorrhage, Fall, UTI (urinary tract infection) Disposition: HOME SELF-CARE Condition: Good Instructions (If sedation given, give patient instructions): Urinary Tract Infection in Women (DC), Fall Prevention for Older Adults (ED), Head Injury (ED) Prescriptions: Sulfamethox-Tmp 800-160Mg [Bactrim Ds] 1 each PO Q12HR #14 tab Is patient prescribed a controlled substance at d/c from ED?: No Referrals: Carlo Davey MD [Primary Care Provider] - 1-2 days Time of Disposition: 15:03
[2023-06-29 12:33] LABS: Basophils % (A) 0 %; Eosinophils # (A) 0.1 k/uL (0-0.7); Eosinophils % (A) 2 %; HCT 39.6 % (34.0-46.0); HGB 12.9 gm/dL (11.4-16.0); Lymphocytes # (A) 0.7 k/uL (1.0-4.8); Lymphocytes % (A) 8 %; MCH 27.5 pg (25.0-35.0); MCHC 32.7 g/dL (31.0-37.0); MCV 84.2 fL (80.0-100.0); Mean Platelet Volume 8.4; Monocytes # (A) 0.4 k/uL (0-1.0); Monocytes % (A) 5 %; Neutrophils # (A) 6.6 k/uL (1.3-7.7); Neutrophils % (A) 84 %; Platelet Count 195 k/uL (150-450); RDW 15.2 % (11.5-15.5); WBC 7.9 k/uL (3.8-10.6)
--- NOTE | 2023-06-29 12:40 | CT ---
EXAMINATION TYPE: CT brain wo con DATE OF EXAM: 06/29/2023 COMPARISON: 02/11/2023 HISTORY: fall hit back of head, on blood thinners CT DLP: 1159.[address] of the brain was performed. The ventricles, basal cisterns and sulci overlying the cerebral convexities demonstrate moderate enla rgement. There is no evidence for intracranial hemorrhage or sulcal effacement. There is decreased attenuation about the periventricular white matter and deep white matter of both c erebral hemispheres, compatible with chronic small vessel ischemia. Differential diagnosis does inclu de demyelination. No mass effects are seen.No midline shift. Osseous calvarium is intact. If symptoms persist consider MRI. IMPRESSION: 1. Age related atrophic and chronic small vessel ischemic change without acute intracranial process s een at this time.
[2023-06-29 13:30] LABS: ALT 9 U/L (4-34); AST 20 U/L (14-36); African American GFR (CKD) 80 (>60 ml/min/1.73 sqM); Albumin 3.9 g/dL (3.5-5.0); Alkaline Phosphatase 102 U/L (38-126); Anion Gap 7 mmol/L; Blood Urea Nitrogen 15 mg/dL (7-17); Calcium 9.5 mg/dL (8.4-10.2); Carbon Dioxide 26 mmol/L (22-30); Chloride 103 mmol/L (98-107); Glucose 103 mg/dL (74-99); Non-African American GFR(CKD) 69 (>60 ml/min/1.73 sqM); Sodium 136 mmol/L (137-145); Total Bilirubin 0.6 mg/dL (0.2-1.3); Total Protein 6.7 g/dL (6.3-8.2)
[2023-06-29 14:42] LABS: Appearance,Urine Turbid (Clear); Bacteria,Urine Moderate /hpf; Bilirubin,Urine Negative (Negative); Blood,Urine Large (Negative); Color,Urine Yellow; Glucose,Urine (UA) Negative (Negative); Ketones,Urine Negative (Negative); Leukocyte Esterase,Urine Large (Negative); Mucus,Urine Rare /hpf; Nitrite,Urine Positive (Negative); Protein,Urine Trace (Negative); RBC,Urine 100 /hpf (0-5); Specific Gravity,Urine 1.016 (1.001-1.035); Squamous Epithelial Cell,Urine 43 /hpf (0-4); Urobilinogen,Urine <2.0 mg/dL (<2.0); WBC,Urine 157 /hpf (0-5)
[2023-06-29] MEDS ORDERED: SULFAMETHOX-TMP 800-160MG 1 EACH TAB PO STA (14:52)
[2023-06-29 15:21] VITALS: BP 168/71; PULSE 62; RESP 18
== END 2023-06-29 15:21 | disposition home or self-care (01) ==
LOC: EC 11:02
DX: S09.90XA Unspecified injury of head, initial encounter (principal); N39.0 Urinary tract infection, site not specified; I67.82 Cerebral ischemia; E78.5 Hyperlipidemia, unspecified; I10 Essential (primary) hypertension; I25.2 Old myocardial infarction; E07.9 Disorder of thyroid, unspecified; Z87.891 Personal history of nicotine dependence; Z79.890 Hormone replacement therapy; Z79.899 Other long term (current) drug therapy; Z88.6 Allergy status to analgesic agent; W18.30XA Fall on same level, unspecified, initial encounter
CPT/HCPCS: 36415; 70450; 80053; 81001; 84484; 85025; 93005; 99285

== ENCOUNTER 2023-07-24 09:50 | Inpatient (IN) | payer MEDICARE, BC ==
--- NOTE | 2023-07-24 10:01 | ED ---
General Adult HPI - General Stated complaint: CVA Time Seen by Provider: 07/24/23 09:53 Source: patient, EMS, RN notes reviewed Mode of arrival: EMS Limitations: altered mental status - History of Present Illness Initial comments: Patient is a pleasant 87-year-old female presenting to the emergency department with concern for neurological findings. Last known well was sometime between 5 and 6 AM. Patient reportedly spoke with family at that time. Patient found this morning by nursing staff nonverbal. Patient did go to breakfast however still is nonverbal. EMS states patient was nonverbal in route and had left arm weakness and questionable left facial weakness. When evaluated in the emergency department EMS states that left arm weakness has significantly improved. Patient is a poor historian. Patient does have some verbal capability at this time. Patient does admit to feeling confused. - Related Data Home Medications Medication Instructions Recorded Confirmed Clopidogrel [Plavix] 75 mg PO DAILY 04/20/15 06/29/23 Albuterol Nebulized [Ventolin 2.5 mg INHALATION RT-QID 11/19/22 06/29/23 Nebulized] Budesonide [Pulmicort] 0.5 mg INHALATION RT-BID 11/19/22 06/29/23 Cyanocobalamin (Vitamin B-12) 1,000 mcg PO DAILY@79911/19/22 06/29/23 [Vitamin B-12] DULoxetine HCL [Cymbalta] 30 mg PO DAILY@79911/19/22 06/29/23 Irbesartan [Avapro] 75 mg PO DAILY@79911/19/22 06/29/23 Lactobacillus Acidophilus 1 cap PO DAILY@79911/19/22 06/29/23 [Acidophilus Probiotic] Levocetirizine Dihydrochloride 5 mg PO HS@199911/19/22 06/29/23 Levothyroxine Sodium [Synthroid] 100 mcg PO DAILY@79911/19/22 06/29/23 Montelukast [Singulair] 10 mg PO HS 11/19/22 06/29/23 Pantoprazole Sodium 20 mg PO DAILY@79911/19/22 06/29/23 Rivastigmine Tartrate [Exelon] 3 mg PO BID@0800,1700 11/19/22 06/29/23 Rosuvastatin [Crestor] 20 mg PO DAILY@0800 11/19/22 06/29/23 Ubidecarenone [Coenzyme Q10] 50 mg PO DAILY@0800 11/19/22 06/29/23 Cholestyramine (with Sugar) 4 gm PO DAILY 06/29/23 06/29/23 [Cholestyramine Packet] Folic Acid 1 mg PO DAILY 06/29/23 06/29/23 Loperamide [Imodium] 2 mg PO QID PRN 06/29/23 06/29/23 Multivitamins, Thera [Multivitamin 1 tab PO DAILY 06/29/23 06/29/23 (formulary)] Na Phos,M-B/Na Phos,Di-Ba [Fleet 133 ml RECTAL DAILY PRN 06/29/23 06/29/23 Adult] bisacodyL 10 mg RECTAL DAILY PRN 06/29/23 06/29/23 hydroCHLOROthiazide [Hydrodiuril] 25 mg PO DAILY 06/29/23 06/29/23 Previous Rx's Medication Instructions Recorded Acetaminophen Tab [Tylenol] 500 mg PO Q6HR PRN tab 02/16/23 Magnesium Hydroxide [Milk of 2,400 mg PO DAILY PRN ml 02/16/23 Magnesia Concentrate] Metoprolol Succinate (ER) [Toprol 12.5 mg PO BID tab 02/16/23 XL] Thiamine [Vitamin B-1] 100 mg PO DAILY@1200 tab 02/16/23 Sulfamethox-Tmp 800-160Mg [Bactrim 1 each PO Q12HR #14 tab 06/29/23 Ds] Allergies Allergy/AdvReac Type Severity Reaction Status Date / Time cephalexin [From Keflex] AdvReac Unknown Verified 07/24/23 10:02 Review of Systems ROS Statement: Those systems with pertinent positive or pertinent negative responses have been documented in the HPI. ROS Other: All systems not noted in ROS Statement are negative. Constitutional: Denies: fever Respiratory: Denies: dyspnea Cardiovascular: Denies: chest pain Neurological: Reports: as per HPI, weakness, confusion. Denies: headache Past Medical History Past Medical History: Dementia, Hyperlipidemia, Hypertension, Myocardial I nfarction (VT), Thyroid Disorder Additional Past Medical History / Comment(s): wound R leg from fall, cardiac stents placed, TIA's Last Myocardial Infarction Date:: 2007 History of Any Multi-Drug Resistant Organisms: None Reported Past Surgical History: Appendectomy, Heart Catheterization With Stent, Orthopedic Surgery, Tonsillectomy Additional Past Surgical History / Comment(s): hip fracture Past Anesthesia/Blood Transfusion Reactions: No Reported Reaction Date of Last Stent Placement:: 2007 Past Psychological History: No Psychological Hx Reported Smoking Status: Former smoker Past Alcohol Use History: Rare Past Drug Use History: None Reported - Past Family History Sister(s) Family Medical History: Cancer General Exam Limitations: altered mental status General appearance: alert, in no apparent distress Head exam: Present: atraumatic Eye exam: Present: normal appearance, PERRL, EOMI ENT exam: Present: normal oropharynx Neck exam: Present: normal inspection Respiratory exam: Present: normal lung sounds bilaterally Cardiovascular Exam: Present: regular rate, normal rhythm GI/Abdominal exam: Present: soft. Absent: tenderness Extremities exam: Present: normal inspection Neurological exam: Present: alert, altered, CN II-XII intact (Except mild left facial droop) Expanded Neurological exam: Present: protecting the airway Patient oriented to: Present: person. Absent: place, time Cranial nerves: EOM's Intact: Normal, Facial Sensation: Normal, Facial Palsy with Forehead Movement: Abnormal Left (Mild left facial droop) Sensory exam: Upper Extremity Light Touch: Normal, Lower Extremity Light Touch: Normal Motor strength exam: RUE: 5, LUE: 4, RLE: 3, LLE: 3 Eye Response: (4) open spontaneously Motor Response: (6) obeys commands Verbal Response: (4) confused conversation Psychiatric exam: Present: normal affect, normal mood Skin exam: Present: normal color Course Vital Signs 07/24/23 09:55 Temperature 97.4 F L Pulse Rate 65 Respiratory 18 Rate Blood Pressure 178/86 O2 Sat by Pulse 100 Oximetry EKG Findings - EKG Results: EKG: interpreted by ERMD (Left axis. Low QRS voltage.), sinus rhythm, normal ST/T Medical Decision Making - Medical Decision Making Patient is not considered a candidate for TPA secondary to last known well 5 hours ago which is rhythm 4.5 hours. In addition patient has improvement of symptoms. Risks are felt to outweigh the benefit. Was pt. sent in by a medical professional or institution (, PA, MICA INSPECTOR, urgent care, hospital, or [place] [facility] facility...) When possible be specific @ -Patient does present from nursing facility Did you speak to anyone other than the patient for history (EMS, parent, family, police, friend...)? What history was obtained from this source @ -EMS tells provides history as they're familiar with this patient Did you review nursing and triage notes (agree or disagree)? Why? @ -I reviewed and agree with nursing and triage notes Were old charts reviewed (outside hosp., previous admission, EMS record, old EKG, old radiological studies, urgent care reports/EKG's, [place] [facility] facility records)? Report findings @ -No old charts were reviewed Differential Diagnosis (chest pain, altered mental status, abdominal pain women, abdominal pain men, vaginal bleeding, weakness, fever, dyspnea, syncope, headache, dizziness, GI bleed, back pain, seizure, CVA, palpatations, mental health, musculoskeletal)? @ -Differential CVA Ischemic stroke, hemorrhagic stroke, brain tumor, atypical migraine, Wernicke's encephalopathy, seizure, multiple sclerosis, meningitis, encephalitis, hypog lycemia, Guillain-Merritt, electrolytes disturbance, myasthenia gravis.... This is not meant to be an all-inclusive list EKG interpreted by me (3pts min.). @ -As above X-rays interpreted by me (1pt min.). @ -2 live chest x-ray does have some concern for increased interstitial markings or volume overload. CT interpreted by me (1pt min.). @ -Report reviewed U/S interpreted by me (1pt. min.). @ -None done What testing was considered but not performed or refused? (CT, X-rays, U/S, labs)? Why? @ -BNP will be added What meds were considered but not given or refused? Why? @ -None Did you discuss the management of the patient with other professionals (prof sagar i.e. , PA, MICA INSPECTOR, lab, RT, psych nurse, social research assistant, electric power machine operator, teacher, seaman officer, keycase assembler)? Give summary @ -Case was discussed with Dr. lemus, who will admit covering Dr. Davey Was smoking cessation discussed for >3mins.? @ -No Was critical care preformed (if so, how long)? @ -No Were there social determinants of health that impacted care today? How? (Homelessness, low income, unemployed, alcoholism, drug addiction, transportation, low edu. Level, literacy, decrease access to med. care, group home, rehab)? @ -No Was there de-escalation of care discussed even if they declined (Discuss DNR or withdrawal of care, Hospice)? DNR status @ -No What co-morbidities impacted this encounter? (DM, HTN, Smoking, COPD, CAD, Cancer, CVA, ARF, Chemo, Hep., AIDS, mental health diagnosis, sleep apnea, morbid obesity)? @ -None Was patient admitted / discharged? Hospital course, mention meds given and route, prescriptions, significant lab abnormalities, going to OR and other pertinent info. @ -Patient reevaluated and further improved. Speech has improved. Mild facial droop continues. Patient will be admitted with neurology consult. Admission orders written. Undiagnosed new problem with uncertain prognosis? @ -No Drug Therapy requiring intensive monitoring for toxicity (Heparin, Nitro, Insulin, Cardizem)? @ -No Were any procedures done? @ -No Diagnosis/symptom? @ -CVA Acute, or Chronic, or Acute on Chronic? @ -Acute Uncomplicated (without systemic symptoms) or Complicated (systemic symptoms)? @ -default Side effects of treatment? @ -No Exacerbation, Progression, or Severe Exacerbation? @ -No Poses a threat to life or bodily function? How? (Chest pain, USA, VT, pneumonia, PE, COPD, DKA, ARF, appy, cholecystitis, CVA, Diverticulitis, Homicidal, Suicidal, threat to staff... and all critical care pts) @ -No - Lab Data Result diagrams: 07/24/23 10:38 07/24/23 10:38 Lab Results 07/24/23 07/24/23 Range/Units 10:38 10:38 WBC 7.6 (3.8-10.6) k/uL RBC 4.99 (3.80-5.40) m/uL Hgb 13.5 (11.4-16.0) gm/dL Hct 43.2 (34.0-46.0) % MCV 86.4 (80.0-100.0) fL MCH 27.0 (25.0-35.0) pg MCHC 31.3 (31.0-37.0) g/dL RDW 15.1 (11.5-15.5) % Plt Count 195 (150-450) k/uL MPV 7.8 Neutrophils % 76 % Lymphocytes % 13 % Monocytes % 6 % Eosinophils % 3 % Basophils % 0 % Neutrophils # 5.7 (1.3-7.7) k/uL Lymphocytes # 1.0 (1.0-4.8) k/uL Monocytes # 0.4 (0-1.0) k/uL Eosinophils # 0.2 (0-0.7) k/uL Basophils # 0.0 (0-0.2) k/uL Sodium 140 (137-145) mmol/L Potassium 4.1 (3.5-5.1) mmol/L Chloride 107 (98-107) mmol/L Carbon Dioxide 22 (22-30) mmol/L Anion Gap 11 mmol/L BUN 15 (7-17) mg/dL Creatinine 0.79 (0.52-1.04) mg/dL Est GFR (CKD-EPI)AfAm 79 (>60 ml/min/1.73 sqM) Est GFR (CKD-EPI)NonAf 69 (>60 ml/min/1.73 sqM) Glucose 96 (74-99) mg/dL Calcium 9.8 (8.4-10.2) mg/dL Total Bilirubin 0.6 (0.2-1.3) mg/dL AST 27 (14-36) U/L ALT 11 (4-34) U/L Alkaline Phosphatase 118 (38-126) U/L Creatine Kinase 38 (30-135) U/L Total Protein 7.5 (6.3-8.2) g/dL Albumin 4.1 (3.5-5.0) g/dL Disposition Clinical Impression: Cerebrovascular accident (CVA) Disposition: ADMITTED IP TO THIS HOSP Is patient prescribed a controlled substance at d/c from ED?: No Referrals: Carlo Davey MD [Primary Care Provider] - 1-2 days Time of Disposition: 11:29
--- NOTE | 2023-07-24 10:48 | XR ---
EXAMINATION TYPE: XR chest 2V DATE OF EXAM: 07/24/2023 COMPARISON: 02/14/2023 INDICATION: Altered mental status TECHNIQUE: Frontal and lateral views of the chest are obtained. FINDINGS: The heart size is the prominent. The pulmonary vasculature is upper limits for normal. Mild scattered increased lung markings are present may be slightly greater in the right midlung. Jose elate for volume overload and early CHF. IMPRESSION: 1. Clinical correlation recommended for volume overload or congestive heart failure. Follow-up can be performed.
--- NOTE | 2023-07-24 10:50 | CT ---
EXAMINATION TYPE: CT brain wo con DATE OF EXAM: 07/24/2023 COMPARISON: 06/29/2023 INDICATION: Neuro deficit acute stroke suspected. DLP: 1143.4 mGycm, Automated exposure control for dose reduction was used. CONTRAST: None CT of the brain is performed utilizing 3 mm thick sections through the posterior fossa and 3 mm thick sections through the remaining calvarium. Study is performed within 24 hours of arrival to the hosp ital. No abnormal hyperdensity is present to suggest an acute intracranial hemorrhage. No mass lesion is evident. No acute infarcts are evident. Confluent periventricular white matter hypodensity is present with ex vacuo effect on the lateral ventricles. Findings can be compatible with chronic white matter ischemic changes. Ventricles and sulci are prominent for the patient age. Paranasal sinuses and mastoid air cells within the [id number] are clear. IMPRESSION: 1. Atrophy with chronic confluent periventricular white matter ischemic changes, unchanged from rec ent comparison. Follow-up MRI can be performed as clinically indicated.
[2023-07-24 11:05] LABS: Basophils % (A) 0 %; Eosinophils # (A) 0.2 k/uL (0-0.7); Eosinophils % (A) 3 %; HCT 43.2 % (34.0-46.0); HGB 13.5 gm/dL (11.4-16.0); Lymphocytes % (A) 13 %; MCHC 31.3 g/dL (31.0-37.0); MCV 86.4 fL (80.0-100.0); Mean Platelet Volume 7.8; Monocytes # (A) 0.4 k/uL (0-1.0); Monocytes % (A) 6 %; Neutrophils # (A) 5.7 k/uL (1.3-7.7); Neutrophils % (A) 76 %; Platelet Count 195 k/uL (150-450); RBC 4.99 m/uL (3.80-5.40); RDW 15.1 % (11.5-15.5); WBC 7.6 k/uL (3.8-10.6)
[2023-07-24 11:17] LABS: ALT 11 U/L (4-34); AST 27 U/L (14-36); African American GFR (CKD) 79 (>60 ml/min/1.73 sqM); Albumin 4.1 g/dL (3.5-5.0); Alkaline Phosphatase 118 U/L (38-126); Anion Gap 11 mmol/L; Blood Urea Nitrogen 15 mg/dL (7-17); Calcium 9.8 mg/dL (8.4-10.2); Carbon Dioxide 22 mmol/L (22-30); Chloride 107 mmol/L (98-107); Creatine Kinase 38 U/L (30-135); Glucose 96 mg/dL (74-99); Non-African American GFR(CKD) 69 (>60 ml/min/1.73 sqM); Potassium 4.1 mmol/L (3.5-5.1); Sodium 140 mmol/L (137-145); Total Bilirubin 0.6 mg/dL (0.2-1.3); Total Protein 7.5 g/dL (6.3-8.2)
[2023-07-24] MEDS ORDERED: ASPIRIN 325 MG TAB PO STA (11:30)
[2023-07-24] MEDS: SODIUM CHLORIDE 0.9% 1,000 ML IV SCH ×2 (12:02→20:03)
[2023-07-24] MEDS ORDERED: ACETAMINOPHEN TAB 500 MG TAB PO PRN (12:53)
--- NOTE | 2023-07-24 13:23 | P.HPIM ---
History of Present Illness H&P Date: 07/24/23 Chief Complaint: Expressive aphasia * 87-year-old lady with past medical history significant for hypertension, hyperlipidemia, thyroid disorder, coronary artery disease status post stent presented to the emergency department with complaints of unable to speak. Last well-known was around 5 AM on 07/24/2023. Patient was accompanied by family. Patient was nonverbal hence EMS was called and patient was noted to have left arm weakness and left-sided facial droop at the time of presentation. When EMS evaluated later on patient was noted to have significant improvement in left arm weakness. Patient is a poor historian history obtained from chart review as well as review medical record * Patient accompanied by son-in-law who assisted with history taking, patient states she was walking at the assisted living facility for breakfast when she was noted to be minimally responsive and unable to talk * Workup initiated in ER including a CT head which was negative for acute i ntracranial process. CBC and serum chemistry was obtained which was essentially negative * Patient was admitted to medical floor workup done to rule out CVA REVIEW OF SYSTEMS: Speech difficulties resolved CONSTITUTIONAL: No fever, no malaise, no fatigue. HEENT: No recent visual problems or hearing problems. Denied any sore throat. CARDIOVASCULAR: No chest pain, orthopnea, PND, no palpitations, no syncope. PULMONARY: No shortness of breath, no cough, no hemoptysis. GASTROINTESTINAL: No diarrhea, no nausea, no vomiting, no abdominal pain. NEUROLOGICAL: No headaches, no weakness, no numbness. HEMATOLOGICAL: Denies any bleeding or petechiae. GENITOURINARY: Denies any burning micturition, frequency, or urgency. MUSCULOSKELETAL/RHEUMATOLOGICAL: Denies any joint pain, swelling, or any muscle pain. ENDOCRINE: Denies any polyuria or polydipsia. PHYSICAL EXAMINATION: GENERAL: The patient is alert and oriented x3 , not in any acute distress. Well developed, well nourished. HEENT: Pupils are round and equally reacting to light. EOMI. No scleral icterus. No conjunctival pallor. Normocephalic, atraumatic. No pharyngeal erythema. No thyromegaly. CARDIOVASCULAR: S1 and S2 present. No murmurs, rubs, or gallops. PULMONARY: Chest is clear to auscultation, no wheezing or crackles. ABDOMEN: Soft, nontender, nondistended, normoactive bowel sounds. No palpable organomegaly. MUSCULOSKELETAL: No joint swelling or deformity. EXTREMITIES: No cyanosis, clubbing, or pedal edema. NEUROLOGICAL: Alert and oriented 3, speech is fluent face is symmetrical no focal deficit noted SKIN: No rashes. Past Medical History Past Medical History: Dementia, Hyperlipidemia, Hypertension, Myocardial Infarction (ME), Thyroid Disorder Additional Past Medical History / Comment(s): wound R leg from fall, cardiac stents placed, TIA's Last Myocardial Infarction Date:: 2007 History of Any Multi-Drug Resistant Organisms: None Reported Past Surgical History: Appendectomy, Heart Catheterization With Stent, Orthopedic Surgery, Tonsillectomy Additional Past Surgical History / Comment(s): hip fracture Past Anesthesia/Blood Transfusion Reactions: No Reported Reaction Date of Last Stent Placement:: 2007 Past Psychological History: No Psychological Hx Reported Smoking Status: Former smoker Past Alcohol Use History: Rare Past Drug Use History: None Reported - Past Family History Sister(s) Family Medical History: Cancer Medications and Allergies Home Medications Medication Instructions Recorded Confirmed Type Clopidogrel [Plavix] 75 mg PO DAILY 04/20/15 07/24/23 History Albuterol Nebulized [Ventolin 2.5 mg INHALATION RT-QID 11/19/22 07/24/23 History Nebulized] Budesonide [Pulmicort] 0.5 mg INHALATION RT-BID 11/19/22 07/24/23 History Cyanocobalamin (Vitamin B-12) 1,000 mcg PO DAILY 11/19/22 07/24/23 History [Vitamin B-12] DULoxetine HCL [Cymbalta] 30 mg PO DAILY 11/19/22 07/24/23 History Irbesartan [Avapro] 75 mg PO HS 11/19/22 07/24/23 History Lactobacillus Acidophilus 1 cap PO DAILY 11/19/22 07/24/23 History [Acidophilus Probiotic] Levocetirizine Dihydrochloride 5 mg PO HS 11/19/22 07/24/23 History Levothyroxine Sodium [Synthroid] 100 mcg PO AC-[id number] 11/19/22 07/24/23 History Montelukast [Singulair] 10 mg PO HS 11/19/22 07/24/23 History Pantoprazole Sodium 20 mg PO DAILY 11/19/22 07/24/23 History Rivastigmine Tartrate [Exelon] 3 mg PO BID@0800,1700 11/19/22 07/24/23 History Rosuvastatin [Crestor] 20 mg PO DAILY 11/19/22 07/24/23 History Ubidecarenone [Coenzyme Q10] 50 mg PO DAILY 11/19/22 07/24/23 History Acetaminophen Tab [Tylenol] 500 mg PO Q6HR PRN tab 02/16/23 07/24/23 Rx Magnesium Hydroxide [Milk of 2,400 mg PO DAILY PRN ml 02/16/23 07/24/23 Rx Magnesia Concentrate] Metoprolol Succinate (ER) [Toprol 12.5 mg PO BID tab 02/16/23 07/24/23 Rx XL] Folic Acid 1 mg PO DAILY 06/29/23 07/24/23 History Loperamide [Imodium] 2 mg PO QID PRN 06/29/23 07/24/23 History Multivitamins, Thera [Multivitamin 1 tab PO DAILY 06/29/23 07/24/23 History (formulary)] Na Phos,M-B/Na Phos,Di-Ba [Fleet 133 ml RECTAL DAILY PRN 06/29/23 07/24/23 History Adult] bisacodyL 10 mg RECTAL DAILY PRN 06/29/23 07/24/23 History hydroCHLOROthiazide [Hydrodiuril] 25 mg PO DAILY 06/29/23 07/24/23 History Cholestyramine (with Sugar) 4 gm PO DAILY 07/24/23 07/24/23 History [Cholestyramine Powder] Sennosides/Docusate Sodium [Colace 2 tab PO DAILY PRN 07/24/23 07/24/23 History 2-in-1 Tablet] Thiamine [Vitamin B-1] 100 mg PO DAILY 07/24/23 07/24/23 History Allergies Allergy/AdvReac Type Severity Reaction Status Date / Time cephalexin [From Keflex] AdvReac skin on Verified 07/24/23 11:30 hands peel Physical Exam Vitals: Vital Signs Temp Pulse Resp BP Pulse Ox 07/24/23 09:55 97.4 F L 65 18 178/86 100 Intake and Output 07/23/23 07/24/23 07/24/23 22:59 06:59 14:59 Other: Weight 173.4 kg Results CBC & Chem 7: 07/24/23 10:38 07/24/23 10:38 Assessment and Plan Assessment: Assessment and plan * Expressive aphasia rule out CVA versus TIA * History of dementia * Coronary artery disease * Hypertension * Hyperlipidemia * In regards to expressive aphasia, CT head negative carotid ultrasound ordered echocardiogram ordered MRI brain ordered, neurology consulted * In regards to dysphagia, speech therapy consulted onceand dysphagia screen completed patient diet and weight loss * In regards to history of hypertension allow permissive hypertension antihypertensive meds on hold * In regards to hyperlipidemia continue patient on aspirin, started high intensity statin * CODE STATUS discussed patient is DO NOT RESUSCITATE limited/no code
--- NOTE | 2023-07-24 13:32 | US ---
EXAMINATION TYPE: US carotid duplex BILAT DATE OF EXAM: 07/24/2023 COMPARISON: NONE CLINICAL INDICATION: Female, 87 years old with history of Stenosis; Patient's family gave history of complete blockage on right side and 70 to 80 % blockage on left side. Patient is seen by Dr Krista long y six months. TECHNIQUE: Carotid duplex ultrasound examination. Indirect Doppler criteria was utilized. FINDINGS: EXAM MEASUREMENTS: RIGHT: Peak Systolic Velocity (PSV) cm/sec ----- Right CCA: no flow ----- Right ICA: no flow ----- Right ECA: no flow RIGHT: End Diastole cm/sec ----- Right CCA: no flow ----- Right ICA: no flow ----- Right ECA: no flow LEFT: Peak Systolic Velocity (PSV) cm/sec ----- Left CCA: 76.9 ----- Left ICA: 129.8 ----- Left ECA: 91.8 ICA/CCA ratio: 1.7 LEFT: End Diastole cm/sec ----- Left CCA: 19.4 ----- Left ICA: 35.3 ----- Left ECA: 0.0 VERTEBRALS (direction of flow): Right Vertebral: Antegrade Left Vertebral: Antegrade Rhythm: Normal MEDICAL SUPERINTENDENT NOTES: Right side completely occluded from CCA through ICA. Extensive shadowing plaque at left bulb extending into ICA. There is for fluoroscopy of the bilateral vertebral arteries. IMPRESSION: 1. 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 2. Extensive plaquing extending into the left internal carotid artery and carotid bulb. There is at l east moderate stenosis of the left internal carotid artery between 50 and 69% based on velocity . Criteria for Assigning % of Stenosis / Diameter reduction (Estimation based on the indirect measurements of the internal carotid artery velocities (ICA PSV). 1. Normal (no stenosis)=ICA PSV < 125 cm/s: ratio < 2.0: ICA EDV<40 cm/s. 2. Less than 50% stenosis=ICA PSV < 125 cm/s: ratio < 2.0: ICA EDV<40 cm/s. 3. 50 to 69% stenosis=ICA PSV of 125 to 230 cm/s: ration 2.0 ? 4.0: ICA EDV 40-100 cm/s. 4. Greater than 70% stenosis to near occlusion= ICA PSV > 230 cm/s: ratio > 4.0: ICA EDV > 100 cm/s. 5. Near occlusion= ICA PSV velocities may be low or undetectable: variable ratio and ICA EDV. 6. Total occlusion=unable to detect flow.
[2023-07-24] MEDS: ALBUTEROL NEBULIZED 2.5 MG/3 ML INHALATION SCH ×2 (15:08→19:50)
[2023-07-24 16:34] LABS: Partial Thromboplastin Time 25.8 sec (22.0-30.0); Prothrombin Time 10.6 sec (9.0-12.0)
--- NOTE | 2023-07-24 17:05 | P.CNNES ---
History of Present Illness Consult date: 07/24/23 Reason for Consult: CVA History of Present Illness: The pt is an 87 y/o female who is seen in neurologic consultation on 2022, in collaboration with Lana Palacios, via teleneurology. History is obtained from the chart, pt and family who are present at the bedside. The was reportedly normal at 5 am this morning. She spoke with her daughter via telephone. The pt herself does not recall all of the events. She reportedly was found by staff, to be unresponsive. She was reportedly not speaking. Actual events are difficult to verify as the family was not present and the pt does not recall. Per ER note, the pt was able to follow instructions, but was unable to speak. A stroke work up was initiated. CT scan of the brain and CTA of the head and neck were performed. Both are negative. The pt feels she is having some return of her memory regarding this mornings events. She says she does recall the ride in the ambulance. According to the family, the pt has difficulty with short term memory and has been falling frequently. That is why she is in rehab at this time. The pt and family feel that the pt is back to her baseline, at the time of this evaluation. Past Medical History Past Medical History: Dementia, Hyperlipidemia, Hypertension, Myocardial Infarction ([place]), Thyroid Disorder Additional Past Medical History / Comment(s): wound R leg from fall, cardiac stents placed, TIA's Last Myocardial Infarction Date:: 2007 History of Any Multi-Drug Resistant Organisms: None Reported Past Surgical History: Appendectomy, Heart Catheterization With Stent, Orthopedic Surgery, Tonsillectomy Additional Past Surgical History / Comment(s): hip fracture Past Anesthesia/Blood Transfusion Reactions: No Reported Reaction Date of Last Stent Placement:: 2007 Past Psychological History: No Psychological Hx Reported Smoking Status: Former smoker Past Alcohol Use History: Rare Past Drug Use History: None Reported - Past Family History Sister(s) Family Medical History: Cancer Medications and Allergies Home Medications Medication Instructions Recorded Confirmed Type Clopidogrel [Plavix] 75 mg PO DAILY 04/20/15 07/24/23 History Albuterol Nebulized [Ventolin 2.5 mg INHALATION RT-QID 11/19/22 07/24/23 History Nebulized] Budesonide [Pulmicort] 0.5 mg INHALATION RT-BID 11/19/22 07/24/23 History Cyanocobalamin (Vitamin B-12) 1,000 mcg PO DAILY 11/19/22 07/24/23 History [Vitamin B-12] DULoxetine HCL [Cymbalta] 30 mg PO DAILY 11/19/22 07/24/23 History Irbesartan [Avapro] 75 mg PO HS 11/19/22 07/24/23 History Lactobacillus Acidophilus 1 cap PO DAILY 11/19/22 07/24/23 History [Acidophilus Probiotic] Levocetirizine Dihydrochloride 5 mg PO HS 11/19/22 07/24/23 History Levothyroxine Sodium [Synthroid] 100 mcg PO AC-BRKFST 11/19/22 07/24/23 History Montelukast [Singulair] 10 mg PO HS 11/19/22 07/24/23 History Pantoprazole Sodium 20 mg PO DAILY 11/19/22 07/24/23 History Rivastigmine Tartrate [Exelon] 3 mg PO BID@0800,1700 11/19/22 07/24/23 History Rosuvastatin [Crestor] 20 mg PO DAILY 11/19/22 07/24/23 History Ubidecarenone [Coenzyme Q10] 50 mg PO DAILY 11/19/22 07/24/23 History Acetaminophen Tab [Tylenol] 500 mg PO Q6HR PRN tab 02/16/23 07/24/23 Rx Magnesium Hydroxide [Milk of 2,400 mg PO DAILY PRN ml 02/16/23 07/24/23 Rx Magnesia Concentrate] Metoprolol Succinate (ER) [Toprol 12.5 mg PO BID tab 02/16/23 07/24/23 Rx XL] Folic Acid 1 mg PO DAILY 06/29/23 07/24/23 History Loperamide [Imodium] 2 mg PO QID PRN 06/29/23 07/24/23 History Multivitamins, Thera [Multivitamin 1 tab PO DAILY 06/29/23 07/24/23 History (formulary)] Na Phos,M-B/Na Phos,Di-Ba [Fleet 133 ml RECTAL DAILY PRN 06/29/23 07/24/23 History Adult] bisacodyL 10 mg RECTAL DAILY PRN 06/29/23 07/24/23 History hydroCHLOROthiazide [Hydrodiuril] 25 mg PO DAILY 06/29/23 07/24/23 History Cholestyramine (with Sugar) 4 gm PO DAILY 07/24/23 07/24/23 History [Cholestyramine Powder] Sennosides/Docusate Sodium [Colace 2 tab PO DAILY PRN 07/24/23 07/24/23 History 2-in-1 Tablet] Thiamine [Vitamin B-1] 100 mg PO DAILY 07/24/23 07/24/23 History Allergies Allergy/AdvReac Type Severity Reaction Status Date / Time cephalexin [From Keflex] AdvReac skin on Verified 07/24/23 11:30 hands peel Physical Examination - Vital Signs Vital Signs: Vital Signs Temp Pulse Resp BP Pulse Ox 07/24/23 09:55 97.4 F L 65 18 178/86 100 Intake and Output 07/23/23 07/24/23 07/24/23 22:59 06:59 14:59 Other: Weight 173.4 kg General: The pt is reclining in the bed. She is well nourished and in no acute distress. HEENT: Atraumatic, normocephalic. There is no scleral icterus. Fundus not visualized. Mucous membranes moist Neck: Supple, without carotid bruits Heart: Regular rate and rhythm. No murmur Lungs: Essentially clear to auscultation Extremities: Without edema Neurological examination Mental status: The pt is awake, alert and oriented to name, date of , location. She is not oriented to her age, the current year or month. She is able to follow 2 step commands. There is no right/left confusion. Speech is clear. There is no dysarthria or anomia. Cranial Nerves: Pupils are equal at 3mm and reactive. Visual parks are full to confrontation. Extraocular muscles are intact. Facial sensation is intact. There is mild left facial droop. Hearing is diminished. Uvula and palate are midline. Shoulder shrug is symmetric. Tongue protrudes midline. Motor: Strength: (right/left) Crayon Grader 5/5. Biceps 4/4. Hip flexors 4/3 Sensation: Intact to light touch throughout. There is no extinction with double simultaneous stimulation. Coordination: Finger to nose, rapid alternating movements and heel to acosta testing is intact. There is no pronator drift. Deep Tendon reflexes: 2+/4+ in the upper extremities. Lower extremity reflexes are absent. Plantar responses are downgoing Gait: Not assessed Results - Laboratory Findings CBC and BMP: 07/24/23 10:38 07/24/23 10:38 - Diagnostic Findings Comments: CT scan images have been personally reviewed. I agree with the report Assessment and Plan Assessment: 1. The pt is an 87 y/o female with an episode of unresponsiveness/expressive aphasia Consider TIA vs seizure and post-ictal state 2. Hx of TIA 3. Hx cardiac stents 4. Hx COPD 5. Dementia 6. Frequent falls Plan: 1. Agree with stroke work up 2. MRI brain has been ordered 3. EEG has been ordered 4. Restart ASA 81mg 5. High dose statin should be initiated Thank you for allowing us to participate in the care of this pt. Dr. Rah Allison will assume neurologic coverage of this pt as of 2022 Time with Patient: Greater than 30 (50 minutes were spent caring for this pt today, including obtaining a history, examining the pt, reviewing imaging, labs, chart documentation, placing orders and creating this note)
[2023-07-24] MEDS: BUDESONIDE 0.5 MG/2 ML NEBU INHALATION SCH (19:49)
[2023-07-24] MEDS: ATORVASTATIN 40 MG TAB PO SCH (19:58)
[2023-07-25] MEDS: SODIUM CHLORIDE 0.9% 1,000 ML IV SCH (05:51)
[2023-07-25] MEDS: ALBUTEROL NEBULIZED 2.5 MG/3 ML INHALATION SCH ×4 (07:44→21:39)
[2023-07-25] MEDS: BUDESONIDE 0.5 MG/2 ML NEBU INHALATION SCH ×2 (07:44→21:39)
[2023-07-25] MEDS: CLOPIDOGREL 75 MG TAB PO SCH (08:33)
[2023-07-25] MEDS: LACTOBACILLUS ACIDOPHILUS/PECT 1 EACH CAPSULE PO SCH (08:33)
[2023-07-25] MEDS: FOLIC ACID 1 MG TAB PO SCH (08:33)
[2023-07-25] MEDS: CYANOCOBALAMIN 500 MCG TAB PO SCH (08:33)
[2023-07-25] MEDS: DULoxetine HCL 30 MG CAPSULE.DR PO SCH (08:33)
[2023-07-25] MEDS: ASPIRIN 325 MG TAB PO SCH (08:33)
[2023-07-25 11:12] LABS: LDL Cholesterol,Calculated 81.3 mg/dL (0.0-131.0)
--- NOTE | 2023-07-25 12:17 | P.GSCN ---
History of Present Illness Consult date: 07/25/23 Reason for Consult: Carotid stenosis Requesting physician: Alec Vasquez History of present illness: This is a pleasant 87-year-old female with a past medical history including coronary artery disease status post stenting, hypertension, hyperlipidemia, TIA, and hypothyroidism who was brought in by EMS yesterday for concerns of neural deficits. Apparently patient woke up yesterday and talked to family around 5 or 6 AM, she then went down to the dining room where she resides and she was noted that she was not able to speak or form words and seemed confused. She was brought in by EMS. Apparently patient also has been having multiple falls recently as well. her son is at the bedside who states that the speech deficit lasted approximately 5 hours yesterday. Patient is alert and oriented at this time. Speech is fluent and she answers questions appropriately. She denies any other neuro deficits. She denied any visual changes but cannot recall many of the event chest or day. Again son states that family reported left-sided facial droop as well as some left sided weakness noted yesterday. Patient without any neuro deficits at this time. She denies any shortness of breath, chest pain, abdominal pain, fevers or chills. She is undergoing echocardiogram at this time. She had a CT of the brain that reported atrophy with chronic component. Ventricular white matter ischemic changes, unchanged from recent comparison. She also underwent carotid duplex reporting occluded right common, internal and external carotid artery. Left carotid artery 50-69% stenosis per velocities. Vascular surgery was consulted for carotid stenosis. Patient states that she has known right internal artery occlusion. Patient's son is stating that family members state that she had 70-80% narrowing on the left. Patient currently was taking Plavix 75 mg daily. Review of Systems A 14 point review systems was completed all pertinent positives and negatives as stated in the HPI. Past Medical History Past Medical History: Dementia, Hyperlipidemia, Hypertension, Myocardial Infarction ([place]), Thyroid Disorder Additional Past Medical History / Comment(s): wound R leg from fall, cardiac stents placed, TIA's Last Myocardial Infarction Date:: 2007 History of Any Multi-Drug Resistant Organisms: None Reported Past Surgical History: Appendectomy, Heart Catheterization With Stent, Orthopedic Surgery, Tonsillectomy Additional Past Surgical History / Comment(s): hip fracture Past Anesthesia/Blood Transfusion Reactions: No Reported Reaction Date of Last Stent Placement:: 2007 Past Psychological History: No Psychological Hx Reported Smoking Status: Former smoker Past Alcohol Use History: Rare Past Drug Use History: None Reported - Past Family History Sister(s) Family Medical History: Cancer Medications and Allergies Home Medications Medication Instructions Recorded Confirmed Type Clopidogrel [Plavix] 75 mg PO DAILY 04/20/15 07/24/23 History Albuterol Nebulized [Ventolin 2.5 mg INHALATION RT-QID 11/19/22 07/24/23 History Nebulized] Budesonide [Pulmicort] 0.5 mg INHALATION RT-BID 11/19/22 07/24/23 History Cyanocobalamin (Vitamin B-12) 1,000 mcg PO DAILY 11/19/22 07/24/23 History [Vitamin B-12] DULoxetine HCL [Cymbalta] 30 mg PO DAILY 11/19/22 07/24/23 History Irbesartan [Avapro] 75 mg PO HS 11/19/22 07/24/23 History Lactobacillus Acidophilus 1 cap PO DAILY 11/19/22 07/24/23 History [Acidophilus Probiotic] Levocetirizine Dihydrochloride 5 mg PO HS 11/19/22 07/24/23 History Levothyroxine Sodium [Synthroid] 100 mcg PO AC-BRKFST 11/19/22 07/24/23 History Montelukast [Singulair] 10 mg PO HS 11/19/22 07/24/23 History Pantoprazole Sodium 20 mg PO DAILY 11/19/22 07/24/23 History Rivastigmine Tartrate [Exelon] 3 mg PO BID@0800,1700 11/19/22 07/24/23 History Rosuvastatin [Crestor] 20 mg PO DAILY 11/19/22 07/24/23 History Ubidecarenone [Coenzyme Q10] 50 mg PO DAILY 11/19/22 07/24/23 History Acetaminophen Tab [Tylenol] 500 mg PO Q6HR PRN tab 02/16/23 07/24/23 Rx Magnesium Hydroxide [Milk of 2,400 mg PO DAILY PRN ml 02/16/23 07/24/23 Rx Magnesia Concentrate] Metoprolol Succinate (ER) [Toprol 12.5 mg PO BID tab 02/16/23 07/24/23 Rx XL] Folic Acid 1 mg PO DAILY 06/29/23 07/24/23 History Loperamide [Imodium] 2 mg PO QID PRN 06/29/23 07/24/23 History Multivitamins, Thera [Multivitamin 1 tab PO DAILY 06/29/23 07/24/23 History (formulary)] Na Phos,M-B/Na Phos,Di-Ba [Fleet 133 ml RECTAL DAILY PRN 06/29/23 07/24/23 History Adult] bisacodyL 10 mg RECTAL DAILY PRN 06/29/23 07/24/23 History hydroCHLOROthiazide [Hydrodiuril] 25 mg PO DAILY 06/29/23 07/24/23 History Cholestyramine (with Sugar) 4 gm PO DAILY 07/24/23 07/24/23 History [Cholestyramine Powder] Sennosides/Docusate Sodium [Colace 2 tab PO DAILY PRN 07/24/23 07/24/23 History 2-in-1 Tablet] Thiamine [Vitamin B-1] 100 mg PO DAILY 07/24/23 07/24/23 History Allergies Allergy/AdvReac Type Severity Reaction Status Date / Time cephalexin [From Keflex] AdvReac skin on Verified 07/24/23 11:30 hands peel Surgical - Exam Vital Signs Temp Pulse Resp BP Pulse Ox 97.4 F L 65 18 178/86 100 07/24/23 09:55 07/24/23 09:55 07/24/23 09:55 07/24/23 09:55 07/24/23 09:55 General appearance: The patient is alert, oriented, appears in no acute distress. HET: Head is normocephalic and atraumatic. Pupils are equal and reactive. Neck: Supple. No audible bruit Heart: Regular. Lungs: Equal expansion, normal respiratory effort. Abdomen: Soft, nontender, nondistended. Extremities: Normal skin color and turgor. Neurological: Speech is fluent, follows commands and answers questions appropriately. Slight droop noted on the left lip, tongue protrudes midline. Equal upper and lower extremity strength and tone. Results - Labs 07/24/23 10:38 07/24/23 10:38 Diabetes panel 07/25/23 Range/Units 07:03 Triglycerides 120.00 (0.00-149.00) mg/dL HDL Cholesterol 52.70 (40.00-60.00) mg/dL - Imaging Comments: Echocardiogram pending CT brain without contrast: Atrophy with chronic confluent periventricular white matter ischemic changes, unchanged from recent comparison. Follow-up MRI can be performed as clinically indicated Carotid duplex: Complete obstruction of the visualized right common carotid internal carotid and external carotid arteries. Extensive plaquing extending into the left internal carotid artery and carotid bulb. There is at least moderate stenosis of the left internal carotid artery between 50 and 69% based on velocity. Assessment and Plan Assessment: 1. Expressive aphasia, now resolved 2. Right common, internal, and external carotid artery occlusion (known hx of) 3. 50-69% stenosis left carotid artery per carotid duplex velocity 4. Coronary artery disease status post stents 5. History hypertension 6. Hypothyroidism Plan: 1. CT angiogram head and neck ordered 2. Echocardiogram pending 3. EEG ordered per neurology 4. MRI brain ordered per neurology 5. Continue Plavix, agree with aspirin and a atorvastatin 6. Await further recommendations from neurology 7. Further recommendations forthcoming per vascular surgeon following further workup Thank you for this consultation, we will continue to follow. The impression and plan of care has been dictated as directed. Dr. Joseph I performed a history and examination of this patient, discussed the same with the dictator. I agree with the dictator's note ,documented as a scribe. Any additional findings or plans will be noted.
--- NOTE | 2023-07-25 12:50 | P.PN ---
Subjective Progress Note Date: 07/25/23 87-year-old lady with past medical history significant for hypertension, hyperlipidemia, thyroid disorder, coronary artery disease status post stent presented to the emergency department with complaints of unable to speak. Last well-known was around 5 AM on 07/24/2023. Patient was accompanied by family. Patient was nonverbal hence EMS was called and patient was noted to have left arm weakness and left-sided facial droop at the time of presentation. When EMS evaluated later on patient was noted to have significant improvement in left arm weakness. Patient is a poor historian history obtained from chart review as well as review medical record * Patient accompanied by son-in-law who assisted with history taking, patient states she was walking at the assisted living facility for breakfast when she was noted to be minimally responsive and unable to talk * Workup initiated in ER including a CT head which was negative for acute intracranial process. CBC and serum chemistry was obtained which was essentially negative * Patient was admitted to medical floor workup done to rule out CVA 07/25. Patient seen and examined. Currently alert and 3, answering QUESTIONS APPROPRIATELY, NO COMPLAIN OF ANY SLURRED SPEECH OR WEAKNESS OF ANY EXTREMITY REVIEW OF SYSTEMS: CONSTITUTIONAL: No fever, no malaise,. CARDIOVASCULAR: No chest pain, no palpitations, no syncope. PULMONARY: No shortness of breath, no cough, GASTROINTESTINAL: No diarrhea, no nausea, no vomiting, no abdominal pain. NEUROLOGICAL: No headaches, no weakness, PHYSICAL EXAMINATION: GENERAL: The patient is alert and oriented x3, not in any acute distress. Well developed, well nourished. HEENT: Pupils are round and equally reacting to light. EOMI. No scleral icterus. No conjunctival pallor. Normocephalic, atraumatic. No pharyngeal erythema. No thyromegaly. CARDIOVASCULAR: S1 and S2 present. No murmurs, rubs, or gallops. PULMONARY: Chest is clear to auscultation, no wheezing or crackles. ABDOMEN: Soft, nontender, nondistended, normoactive bowel sounds. No palpable organomegaly. MUSCULOSKELETAL: No joint swelling or deformity. EXTREMITIES: No cyanosis, clubbing, or pedal edema. NEUROLOGICAL: Gross neurological examination did not reveal any focal deficits. SKIN: No rashes. Assessment and plan * Expressive aphasia rule out CVA versus TIA * History of dementia * Coronary artery disease * Hypertension * Hyperlipidemia Monitor vital signs Monitor CBC Monitor CMP Continue telemetry monitoring Continue neuro checks Carotids ultrasound done showed complete obstruction of the visualized right common carotid, internal carotid and external carotid arteries, extensive plaque extending the left internal carotid artery and carotid bulb Echo ordered MRI brain ordered Neurology consulted Consult vascular surgery Labs and medication were reviewed.. Continue same treatment. Continue with symptomatic treatment. Resume home medication. Monitor labs and vitals. DVT and GI prophylaxis. Further recommendations as per clinical course of the patient Dictation was produced using [employer] dictation software. please excuse any grammatical, word or spelling errors. Objective - Vital Signs Vital signs: Vital Signs Temp 97.4 F L 07/25/23 08:00 Pulse 74 07/25/23 08:00 Resp 16 07/25/23 08:00 BP 166/70 07/25/23 08:00 Pulse Ox 97 07/25/23 08:00 FiO2 Intake & Output 07/24/23 07/25/23 07/25/23 18:59 06:59 18:59 Output Total 600 Balance -600 Weight 173.4 kg Output: Urine 600 Other: Voiding Method External Catheter - Labs CBC & Chem 7: 07/24/23 10:38 07/24/23 10:38
--- NOTE | 2023-07-25 13:22 | CA ---
Transthoracic Echo Report Name: Laura Wiggins Age: 87 Gender: F : 1935 Exam Date: 07/25/2023 10:31 Exam Location: [facility] Ht (in): 64 Wt (lb): 170 Ordering Physician: He Kramer DO Attending/Referring Phys: Guitar Instructor Jewel Roman Procedure CPT: Indications: Thrombus Cardiac Hx: Technical Quality: Technically difficult study Contrast 1: Lumason Total Dose (mL): 5 Contrast 2: Total Dose (mL): MEASUREMENTS (Male / Female) Normal Values 2D ECHO LV Diastolic Diameter PLAX 3.8 cm 4.2 - 5.9 / 3.9 - 5.3 cm LV Systolic Diameter PLAX 2.7 cm IVS Diastolic Thickness 1.0 cm 0.6 - 1.0 / 0.6 - 0.9 cm LVPW Diastolic Thickness 1.0 cm 0.6 - 1.0 / 0.6 - 0.9 cm LV Relative Wall Thickness 0.5 RV Internal Dim ED PLAX 2.5 cm LVOT Diameter 2.1 cm Aortic Root Diameter 2.6 cm LA Systolic Diameter LX 2.5 cm 3.0 - 4.0 / 2.7 - 3.8 cm LV Diastolic Volume MOD BP 42.5 cm??? 67 - 155 / 56 - 104 cm??? LV Systolic Volume MOD BP 22.3 cm??? - 58 / 19 - 49 cm??? LV Ejection Fraction MOD BP 47.5 % >= 55 % LV Cardiac Index MOD BP 726.5 cm???/min???m??? LV Diastolic Volume MOD 4C 53.7 cm??? LV Systolic Volume MOD 4C 27.2 cm??? LV Ejection Fraction MOD 4C 49.2 % LV Cardiac Index MOD 4C 950.5 cm???/min???m??? LV Diastolic Length 4C 6.9 cm LV Systolic Length 4C 6.3 cm LV Diastolic Volume MOD 2C 30.4 cm??? LV Systolic Volume MOD 2C 16.8 cm??? LV Ejection Fraction MOD 2C 44.8 % LV Cardiac Index MOD 2C 490.5 cm???/min???m??? LV Diastolic Length 2C 6.2 cm LV Systolic Length 2C 5.8 cm LA Volume 47.1 cm??? 18 - 58 / 22 - 52 cm??? DOPPLER AV Peak Velocity 172.2 cm/s AV Peak Gradient 11.9 mmHg AV Mean Velocity 136.4 cm/s AV Mean Gradient 7.9 mmHg AV Velocity Time Integral 43.9 cm LVOT Peak Velocity 79.3 cm/s LVOT Peak Gradient 2.5 mmHg LVOT Velocity Time Integral 20.9 cm LVOT Stroke Volume 69.1 cm??? LVOT Stroke Volume Index 37.9 ml/m??? LVOT Cardiac Index 2487.3 cm???/min???m??? AV Area Cont Eq vti 1.6 cm??? AV Area Cont Eq pk 1.5 cm??? MV Peak Velocity 115.9 cm/s MV Peak Gradient 5.4 mmHg MV Mean Velocity 65.6 cm/s MV Mean Gradient 2.1 mmHg MV Velocity Time Integral 33.3 cm MR Peak Velocity 402.2 cm/s MR Peak Gradient 64.7 mmHg Mitral E Point Velocity 109.7 cm/s Mitral A Point Velocity 100.6 cm/s Mitral E to A Ratio 1.1 MV Deceleration Time 199.2 ms MV E' Velocity 6.0 cm/s Mitral E to MV E' Ratio 18.4 TR Peak Velocity 235.3 cm/s TR Peak Gradient 22.2 mmHg Right Ventricular Systolic Press 28.0 mmHg PV Peak Velocity 95.0 cm/s PV Peak Gradient 3.6 mmHg FINDINGS Left Ventricle Normal LV size and wall thickness. Left ventricular ejection fraction is estimated at 55-60 %.normal left ventricular wall motion. Right Ventricle Normal right ventricular size. RVSP= 28 mmHg. Right Atrium Normal right atrial size. Left Atrium Normal left atrial size. Mitral Valve Moderate Mitral annulus calcification. Mild to moderate MR. Aortic Valve Mild to moderate AV sclerosis/calcification. Tricuspid Valve Tricuspid valve not well visualized. Mild TR. Pulmonic Valve Pulmonic valve not well visualized. No pulmonic regurgitation. Pericardium Not well visualized however grossly normal. Aorta Normal size aortic root CONCLUSIONS Lumason ECHO contrast used for improved visualization of the endocardial borders (inadequate visualization of two or more contiguous segments). 1. Normal left ventricle size and systolic function 2. Mild to moderate mitral with mild tricuspid regurgitation Previewed by: Dr. Kristine Melgoza MD (Electronically Signed) Final Date: 25 July 2023 13:22
--- NOTE | 2023-07-25 14:40 | P.PN ---
Subjective Progress Note Date: 07/25/23 I am seeing the patient for the first time. Please refer to Dr. Castillo's note for further details. Patient is accompanied with her son and grand-daughter. It seems the patient presented because of recent left facial droop, speech difficulty. She did not have episode of unresponsiveness or any seizure-like activity per family that they are aware of. And patient states she did not have any episode of unresponsiveness. Objective - Vital Signs Vital signs: Vital Signs Temp 97.4 F L 07/25/23 08:00 Pulse 65 07/25/23 12:00 Resp 16 07/25/23 12:00 BP 171/71 07/25/23 12:00 Pulse Ox 97 07/25/23 12:00 FiO2 Intake & Output 07/24/23 07/25/23 07/25/23 18:59 06:59 18:59 Intake Total 240 Output Total 600 Balance -600 240 Weight 173.4 kg Intake: Oral 240 Output: Urine 600 Other: Voiding Method External Catheter External Catheter # Voids 1 # Bowel Movements 1 - Exam GENERAL: The patient is lying in bed and is not in acute distress. NEUROLOGICAL: Higher mental function: The patient is awake, alert, oriented to self, place and time. Patient is following simple commands. No aphasia and no neglect. Cranial nerves: The pupils are round, equal and reactive to light. Visual parks are full to confrontation throughout. Extraocular movement is intact no nystagmus is noted. Facial sensation is normal to touch throughout. Mild left lower facial weakness. Is very hard of hearing bilaterally. Tongue is midline and moved [id number] without any difficulty. No dysarthria is noted. Shoulder shrug is normal bilaterally. Motor: The strength is right lower extremity is 4+ and no hip pain while left lower extremity is mildly limited because of left hip pain (5-). Otherwise 5 over 5 throughout. Normal tone and bulk. Cerebellum: Normal finger to nose bilaterally. Sensation: Sensation is normal to touch throughout. Plantars are downgoing bilaterally. SOME OF THE WORK-UP DURING THIS HOSPITAL VISIT CONSISTED OF: Lipid panel: TG 120, Cholestrol 158, 81 and HDL 52 2D echo: Contrast is used for the study. Normal left vent size and systolic fxn. Mild to moderate mitral with mild tricuspid regurgitation. CT head: Atrophy with cronic confluent periventricular white matter ischemic changes, unchanged from recent comparison. - Labs CBC & Chem 7: 07/24/23 10:38 07/24/23 10:38 Assessment and Plan Assessment: This is an 87-year-old with recent left facial weakness and expressive aphasia Likely acute ischemic stroke (left facial droop and transient expressive aphasia) History of TIA Hist of CAD s/p stent Reported Dementia Frequent falls Plan: Pending MRI Brain. Patient is started on ASA 325mg curly, Plavix 75mg daily. On Lipitor 40mg qhs Dr. Mcginnis recommended EEG to rule out seizure because she felt patient had episode of unresponsiveness. But upon getting history from patient and her family members, she did not have unresponsiveness but rather speech difficulty. Continue neuro checks hogshead inspector PT, OT and STERILISATION TECHNICIAN are consulted. Will defer the rest of management to the primary team. For DVT prophylaxis: I started patient on subq heparin 5000U every 12 hours. The plan is discussed with patient and her family members (son and grand- daughter). Time with Patient: Less than 30
--- NOTE | 2023-07-25 17:18 | CT ---
EXAMINATION TYPE: CT angio head neck CT DLP: 601.5 mGycm, Automated exposure control for dose reduction was used. DATE OF EXAM: 07/25/2023 4:53 PM COMPARISON: 07/24/2023. CLINICAL INDICATION:Female, 87 years old with history of TIA, aphasia; PHH, TIA, aphasia TECHNIQUE: Axially acquired helical CT angiogram of the head and neck was obtained with contrast. Axi al images are supplemented with 3D reconstructions which [facility] NASCET criteria used. Contrast used:65 mL of Isovue 370 with IV Contrast, Oral contrast used: None. FINDINGS: CTA HEAD: No evidence of acute intracranial hemorrhage, mass effect, or midline shift. The ventricles, sulci, a nd cisterns are unremarkable. Bilaterally aphakia. The visualized portions of the internal carotid arteries, middle cerebral arteries, anterior cerebral arteries, and posterior cerebral arteries are patent. The basilar and vertebral arteries are patent. CTA NECK: Right Carotid System: The common carotid artery is occluded at its origin extending into the internal carotid artery which extends into the skull base with reconstitution at the [place]. Left Carotid System: The common carotid and external carotid arteries are patent. There is less than 50 % stenosis at the carotid bifurcation secondary to calcified plaque. The rest of the internal carotid artery is patent. Vertebral arteries are patent without evidence hemodynamically significant stenosis. There is a three-vessel aortic arch. The origins of the great vessels are patent. No evidence of hemo dynamically significant stenosis. Upper thorax: Scattered ground glass opacities throughout the lungs. There is consolidation in the le ft upper lung. There is soft tissue around the trachea and trachea bifurcation. 1. IMPRESSION: 2. The right common carotid artery is occluded at its origin extending into the internal carotid art héctor which and into the calvarium with reconstitution at the [place]. 3. 50% stenosis of the left carotid bifurcation. 4. No evidence of intracranial high-grade stenosis or intracranial aneurysm. 5. Scattered airspace opacities throughout the lungs correlate for atypical pneumonia. Consider shor t-term follow-up in [address] chest with IV contrast to ensure resolution.
--- NOTE | 2023-07-25 19:04 | EEG ---
ELECTROENCEPHALOGRAM REPORT CLINICAL HISTORY: This is an 87-year-old woman with reported unresponsiveness. The video EEG is obtained to evaluate for seizure and epileptiform activity. RELEVANT MEDICATIONS: The patient is not on any antiepileptic drugs. EEG TYPE: A routine 21-channel EEG is performed with video using the 10/20 electrode placement system. DESCRIPTION: Wakefulness is only obtained. The background consists of djp-tz-unffatup voltage of 6 to 7 Hz activity. There is no physiological stage II sleep architecture. There is no focal slowing. INTERICTAL AND ICTAL: None. ACTIVATION PROCEDURE: Photic stimulation did not evoke a posterior driving response. There is no abnormality during the photic stimulation. Hyperventilation is not performed. CLINICAL INTERPRETATION: This is an abnormal routine EEG. The background slowing is suggestive of mild encephalopathy. Otherwise, there is no focal slowing, epileptiform discharge, or seizure on the EEG. Clinical correlation is recommended. EFE / SHERLY: [id number] /
[2023-07-25] MEDS: HEPARIN SODIUM,PORCINE 5,000 UNIT/ML 1 ML VIAL SQ SCH (20:54)
[2023-07-25] MEDS: ATORVASTATIN 40 MG TAB PO SCH (20:54)
[2023-07-26] MEDS: SODIUM CHLORIDE 0.9% 1,000 ML IV SCH ×4 (08:24→23:21)
[2023-07-26] MEDS: FOLIC ACID 1 MG TAB PO SCH (08:33)
[2023-07-26] MEDS: HEPARIN SODIUM,PORCINE 5,000 UNIT/ML 1 ML VIAL SQ SCH ×2 (08:33→20:28)
[2023-07-26] MEDS: CLOPIDOGREL 75 MG TAB PO SCH (08:33)
[2023-07-26] MEDS: LACTOBACILLUS ACIDOPHILUS/PECT 1 EACH CAPSULE PO SCH (08:33)
[2023-07-26] MEDS: CYANOCOBALAMIN 500 MCG TAB PO SCH (08:33)
[2023-07-26] MEDS: DULoxetine HCL 30 MG CAPSULE.DR PO SCH (08:33)
[2023-07-26] MEDS: ASPIRIN 325 MG TAB PO SCH (08:33)
[2023-07-26] MEDS: BUDESONIDE 0.5 MG/2 ML NEBU INHALATION SCH ×2 (09:06→21:41)
[2023-07-26] MEDS: ALBUTEROL NEBULIZED 2.5 MG/3 ML INHALATION SCH ×4 (09:06→21:41)
--- NOTE | 2023-07-26 10:57 | P.PN ---
Subjective Progress Note Date: 07/26/23 Principal diagnosis: Carotid stenosis Patient was seen and examined today as a follow-up. Patient was sitting up in bed eating breakfast. No new complaints today. No focal deficits. Patient underwent EGD yesterday reporting abnormal routine EEG with background slowing suggestive of mild encephalopathy. Otherwise there is no focal slowing, look deformed discharge or seizure on the EEG. She also underwent CT angiogram head and neck with findings of occluded right common, external, and internal carotid arteries. Objective - Vital Signs Vital signs: Vital Signs Temp 98.2 F 07/26/23 04:00 Pulse 68 07/26/23 09:22 Resp 16 07/26/23 08:00 BP 165/79 07/26/23 08:00 Pulse Ox 98 07/26/23 08:00 FiO2 Intake & Output 07/25/23 07/26/23 07/26/23 18:59 06:59 18:59 Intake Total 780 180 Output Total 375 150 Balance 405 -150 180 Intake: Oral 780 180 Output: Urine 375 150 Other: Voiding Method External Catheter # Voids 1 4 # Bowel Movements 1 - Exam General appearance: The patient is alert, oriented, appears in no acute distress. HET: Head is normocephalic and atraumatic. Pupils are equal and reactive. Neck: Supple. Heart: Regular. Lungs: Equal expansion, normal respiratory effort. Abdomen: Soft, nontender, nondistended. Extremities: Normal skin color and turgor. Neurological: No focal deficits. Strength and sensation are grossly intact. - Labs CBC & Chem 7: 07/24/23 10:38 07/24/23 10:38 Assessment and Plan Assessment: 1. Expressive aphasia, now resolved 2. Right common, internal, and external carotid artery occlusion (known hx of) 3. Left carotid artery 50% stenosis of left carotid bifurcation, CT angiogram and carotid duplex reviewed by Dr. Joseph 4. Coronary artery disease status post stents 5. History hypertension 6. Hypothyroidism Plan: CT angiogram head and neck ordered and imaging reviewed by Dr. Joseph with findings of a complete occlusion of the right common, external and internal carotid artery. More likely 50% left carotid stenosis. MRI is still currently pending. There is no indication for any vascular surgical intervention at this time. This was discussed both with the patient and patient's family member at the bedside who both seemingly understand. Continue medical therapy with aspirin, Plavix, and a atorvastatin. Continue with recommendations from neurology. Thank you for this consultation, we will continue to follow. The impression and plan of care has been dictated as directed. Dr. Joseph I performed a history and examination of this patient, discussed the same with the dictator. I agree with the dictator's note ,documented as a scribe. Any additional findings or plans will be noted.
--- NOTE | 2023-07-26 12:18 | P.PN ---
Subjective Progress Note Date: 07/26/23 87-year-old lady with past medical history significant for hypertension, hyperlipidemia, thyroid disorder, coronary artery disease status post stent presented to the emergency department with complaints of unable to speak. Last well-known was around 5 AM on 07/24/2023. Patient was accompanied by family. Patient was nonverbal hence EMS was called and patient was noted to have left arm weakness and left-sided facial droop at the time of presentation. When EMS evaluated later on patient was noted to have significant improvement in left arm weakness. Patient is a poor historian history obtained from chart review as well as review medical record * Patient accompanied by son-in-law who assisted with history taking, patient states she was walking at the assisted living facility for breakfast when she was noted to be minimally responsive and unable to talk * Workup initiated in ER including a CT head which was negative for acute intracranial process. CBC and serum chemistry was obtained which was essentially negative * Patient was admitted to medical floor workup done to rule out CVA * 07/25. Patient seen and examined. Currently alert and 3, answering QUESTIONS APPROPRIATELY, NO COMPLAIN OF ANY SLURRED SPEECH OR WEAKNESS OF ANY EXTREMIty * 07/26: Patient assessed at bedside alert and oriented 4 no deficit noted waiting for MRI. Echocardiogram reviewed CTA reviewed daughter at bedside Objective - Vital Signs Vital signs: Vital Signs Temp 98.2 F 07/26/23 04:00 Pulse 68 07/26/23 12:15 Resp 16 07/26/23 08:00 BP 165/79 07/26/23 08:00 Pulse Ox 98 07/26/23 08:00 FiO2 Intake & Output 07/25/23 07/26/23 07/26/23 18:59 06:59 18:59 Intake Total 780 180 Output Total 375 150 Balance 405 -150 180 Intake: Oral 780 180 Output: Urine 375 150 Other: Voiding Method External Catheter External Catheter # Voids 1 4 # Bowel Movements 1 - Exam GENERAL: The patient is alert and oriented x3, not in any acute distress. Well developed, well nourished. HEENT: Pupils are round and equally reacting to light. EOMI. No scleral icterus. No conjunctival pallor. Normocephalic, atraumatic. No pharyngeal erythema. No thyromegaly. CARDIOVASCULAR: S1 and S2 present. No murmurs, rubs, or gallops. PULMONARY: Chest is clear to auscultation, no wheezing or crackles. ABDOMEN: Soft, nontender, nondistended, normoactive bowel sounds. No palpable organomegaly. MUSCULOSKELETAL: No joint swelling or deformity. EXTREMITIES: No cyanosis, clubbing, or pedal edema. NEUROLOGICAL: Gross neurological examination did not reveal any focal deficits. SKIN: No rashes. - Labs CBC & Chem 7: 07/24/23 10:38 07/24/23 10:38 Assessment and Plan Assessment: Assessment and plan * Expressive aphasia rule out CVA versus TIA * Carotid artery stenosis * History of dementia * Coronary artery disease * Hypertension * Hyperlipidemia * In regards to expressive aphasia, CT head negative , CT angina head and neck reviewed, vascular surgery consulted. Medical management recommended * In regards to dysphagia, resolved continue regular diet * In regards to history of hypertension home meds to be continued once stroke ruled out * In regards to hyperlipidemia continue patient on aspirin, started high intensity statin * CODE STATUS discussed patient is DO NOT RESUSCITATE limited/no code * Carotids ultrasound done showed complete obstruction of the visualized right common carotid, internal carotid and external carotid arteries, extensive plaque extending the left internal carotid artery and carotid bulb * Neurology consulted
--- NOTE | 2023-07-26 14:52 | P.PN ---
Subjective Progress Note Date: 07/26/23 I am following-up with patient and she is accompanied with her daughter who feels she is about the same today compared to yesterday and no further new neurological issues. Patient states she feels she is doing great. Objective - Vital Signs Vital signs: Vital Signs Temp 98.2 F 07/26/23 04:00 Pulse 68 07/26/23 12:15 Resp 16 07/26/23 12:00 BP 164/72 07/26/23 12:00 Pulse Ox 98 07/26/23 12:00 FiO2 Intake & Output 07/25/23 07/26/23 07/26/23 18:59 06:59 18:59 Intake Total 780 360 Output Total 375 150 Balance 405 -150 360 Intake: Oral 780 360 Output: Urine 375 150 Other: Voiding Method External Catheter External Catheter # Voids 1 4 # Bowel Movements 1 - Exam GENERAL: The patient is sitting in a recliner chair and is not in acute distress. NEUROLOGICAL: Higher mental function: The patient is awake, alert, oriented to self, place and time. Patient is following simple commands. No aphasia and no neglect. Cranial nerves: The pupils are round, equal and reactive to light. Visual parks are full to confrontation throughout. Extraocular movement is intact no nystagmus is noted. Facial sensation is normal to touch throughout. Mild left lower facial weakness. Is very hard of hearing bilaterally. Tongue is midline and moved [id number] without any difficulty. No dysarthria is noted. Shoulder shrug is normal bilaterally. Motor: The strength is right lower extremity is 4+ and no hip pain while left lower extremity is mildly limited because of left hip pain (5-). Otherwise 5 over 5 throughout. Normal tone and bulk. Cerebellum: Normal finger to nose bilaterally. Sensation: Sensation is normal to touch throughout. Plantars are downgoing bilaterally. SOME OF THE WORK-UP DURING THIS HOSPITAL VISIT CONSISTED OF: Lipid panel: TG 120, Cholestrol 158, 81 and HDL 52 2D echo: Contrast is used for the study. Normal left vent size and systolic fxn. Mild to moderate mitral with mild tricuspid regurgitation. CT head: Atrophy with cronic confluent periventricular white matter ischemic changes, unchanged from recent comparison. Routine EEG is abnormal. The background slowing suggestive of mild e ncephalopathy. Otherwise, there is no focal slowing, epileptiform discharges or seizure on the EEG CT angiography of the head and neck was reported as right common carotid artery is occluded at its origin extending into the internal carotid artery which and into the calvarium with reconstitution at the [place]. 50% stenosis of the left carotid bifurcation. No evidence of intracranial high-grade stenosis or intracranial aneurysm. Scattered airspace opacities throughout the long correlate for atypical pneumonia. Consider short-term follow-up in [address] chest with IV contrast to ensure resolution. Carotid duplex was reported as complete obstruction of the visualized right common carotid artery, internal carotid artery and external carotid artery. Extensive plaque in extending into the left internal carotid artery and carotid bulb. There is at least moderate stenosis at the left internal carotid artery between 50-69 based on velocity. - Labs CBC & Chem 7: 07/24/23 10:38 07/24/23 10:38 Assessment and Plan Assessment: This is an 87-year-old with recent left facial weakness and expressive aphasia Likely acute ischemic stroke (left facial droop and transient expressive aphasia) History of TIA Right common/internal carotid artery occlusion Left ICA stenosis of about 50% per CTA while on the carotid duplex is 50-69% Hist of CAD s/p stent Reported Dementia Frequent falls Plan: Pending MRI Brain. Patient is started on ASA 325mg curly, Plavix 75mg daily. On Lipitor 40mg qhs Continue neuro checks color television console monitor PT, OT and DEPUTY CORONER are consulted. Vascular surgery team is consulted and per vascular surgery the right common carotid external carotid internal carotid artery occlusion were reviewed by them and it felt more likely 50%. They did not feel there is indication for any vascular surgical intervention at this time. Will defer the rest of management to the primary team. For DVT prophylaxis:Continue subq heparin 5000U every 12 hours. The plan is discussed with patient and her daughter who is at bedside. Time with Patient: Less than 30
--- NOTE | 2023-07-26 18:24 | MR ---
EXAMINATION TYPE: MR brain wo/w con DATE OF EXAM: 07/26/2023 5:55 PM CLINICAL INDICATION:Female, 87 years old with history of Expressive aphasia rule out CVA; PHH, Expres sive aphasia rule out CVA COMPARISON: CT 07/24/2023 02/11/2023 CT. TECHNIQUE: Multi planar, multi sequence imaging was performed through the brain including: T1, T2, In version recovery, susceptibility weighted imaging and gradient echo imaging and Diffusion weighted im aging. The patient was then given intravenous contrast and multi planar, T1 fat-saturation images wer e obtained. IV Contrast: 8 cc Gadavist FINDINGS: Dilation of lateral ventricles with generalized atrophy. Brito index of 0.38. Diffusion-weighted imag ing shows no evidence of restricted diffusion to suggest acute/subacute infarct. Intracranial arteria l flow voids are maintained. Midline structures show no abnormality. Scattered foci and confluent are as of of high T2 signal intensity are seen within the periventricular white matter. The susceptibilit y weighted images do not reveal any evidence for micro-hemorrhage. After administration of gadolinium , no abnormal enhancement is seen. The bone marrow signal is within normal limits. Paranasal sinuses and mastoid air cells: No significant paranasal sinus disease. Visualized orbits: Orbital contents are intact. IMPRESSION: 1. No evidence of intracranial mass, acute/subacute infarct, or abnormal enhancement. 2. Dilation of ventricles which is similar back to 02/11/2023, correlate for hydrocephalus. 3. Nonspecific white matter changes, likely related to small vessel ischemic disease
[2023-07-26] MEDS: ATORVASTATIN 40 MG TAB PO SCH (20:28)
[2023-07-27] MEDS: BUDESONIDE 0.5 MG/2 ML NEBU INHALATION SCH (08:20)
[2023-07-27] MEDS: ALBUTEROL NEBULIZED 2.5 MG/3 ML INHALATION SCH ×2 (08:20→11:52)
[2023-07-27] MEDS: CYANOCOBALAMIN 500 MCG TAB PO SCH (10:24)
[2023-07-27] MEDS: LACTOBACILLUS ACIDOPHILUS/PECT 1 EACH CAPSULE PO SCH (10:24)
[2023-07-27] MEDS: ASPIRIN 325 MG TAB PO SCH (10:24)
[2023-07-27] MEDS: DULoxetine HCL 30 MG CAPSULE.DR PO SCH (10:25)
[2023-07-27] MEDS: HEPARIN SODIUM,PORCINE 5,000 UNIT/ML 1 ML VIAL SQ SCH (10:25)
[2023-07-27] MEDS: FOLIC ACID 1 MG TAB PO SCH (10:25)
[2023-07-27] MEDS: CLOPIDOGREL 75 MG TAB PO SCH (10:25)
[2023-07-27 10:42] VITALS: BP 126/72; RESP 18; TEMP 98.2
--- NOTE | 2023-07-27 11:31 | P.PN ---
Subjective Progress Note Date: 07/27/23 Principal diagnosis: Carotid stenosis And seen and examined today as follow-up. No new acute focal deficits. States she is feeling well. She's been up and ambulating to the bathroom. She underwent MRI of the brain yesterday with no evidence of intracranial mass, acute/subacute infarct or abnormal enhancement. Dilation of ventricles which is similar back to 02/11/2023, correlate for hydrocephalus. Nonspecific white matter changes, likely related to small vessel ischemic disease. Objective - Vital Signs Vital signs: Vital Signs Temp 97.5 F L 07/27/23 04:00 Pulse 73 07/27/23 04:00 Resp 20 07/27/23 04:00 BP 129/62 07/27/23 04:00 Pulse Ox 96 07/27/23 04:00 FiO2 Intake & Output 07/26/23 07/27/23 07/27/23 18:59 06:59 18:59 Intake Total 540 240 Output Total 300 400 Balance 240 -400 240 Intake: Oral 540 240 Output: Urine 300 400 Other: Voiding Method External Catheter External Catheter # Voids 1 - Exam General appearance: The patient is alert, oriented, appears in no acute distress. HET: Head is normocephalic and atraumatic. Pupils are equal and reactive. Neck: Supple. Heart: Regular. Lungs: Equal expansion, normal respiratory effort. Abdomen: Soft, nontender, nondistended. Extremities: Normal skin color and turgor. Neurological: No focal deficits. Strength and sensation are grossly intact. - Labs CBC & Chem 7: 07/24/23 10:38 07/24/23 10:38 Assessment and Plan Assessment: 1. Expressive aphasia, now resolved 2. Right common, internal, and external carotid artery occlusion (known hx of) 3. Left carotid artery 50% stenosis of left carotid bifurcation, CT angiogram and carotid duplex reviewed by Dr. Joseph 4. Coronary artery disease status post stents 5. History hypertension 6. Hypothyroidism Plan: CT angiogram head and neck ordered and imaging reviewed by Dr. Joseph with findings of a complete occlusion of the right common, external and internal carotid artery. More likely 50% left carotid stenosis. MRI reports no acute or subacute infarct or abnormal enhancement. There is no indication for any vascular surgical intervention at this time. Continue medical therapy with aspirin, Plavix, and a atorvastatin. Continue with recommendations from neurology. Outpatient follow-up as needed. Thank you for this consultation, we will sign off at this time. The impression and plan of care has been dictated as directed. Dr. Tucker I performed a history and examination of this patient, discussed the same with the dictator. I agree with the dictator's note ,documented as a scribe. Any additional findings or plans will be noted.
[2023-07-27 12:08] VITALS: PULSE 76
--- NOTE | 2023-07-27 12:29 | P.PN ---
Subjective Progress Note Date: 07/27/23 I am follow-up with the patient and she is accompanied with her son. The patient feels she is doing better and denies of any new neurological deficits. Objective - Vital Signs Vital signs: Vital Signs Temp 98.2 F 07/27/23 10:20 Pulse 76 07/27/23 12:07 Resp 18 07/27/23 10:20 BP 126/72 07/27/23 10:20 Pulse Ox 96 07/27/23 10:20 FiO2 Intake & Output 07/26/23 07/27/23 07/27/23 18:59 06:59 18:59 Intake Total 540 240 Output Total 300 400 150 Balance 240 -400 90 Intake: Oral 540 240 Output: Urine 300 400 150 Other: Voiding Method External Catheter External Catheter External Catheter # Voids 1 1 # Bowel Movements 1 - Exam GENERAL: The patient is sitting in a recliner chair and is not in acute distress. NEUROLOGICAL: Higher mental function: The patient is awake, alert, oriented to self, place and time. Patient is following simple commands. No aphasia and no neglect. Cranial nerves: The pupils are round, equal and reactive to light. Visual parks are full to confrontation throughout. Extraocular movement is intact no nystagmus is noted. Facial sensation is normal to touch throughout. Mild left lower facial weakness. Is very hard of hearing bilaterally. Tongue is midline and moved [id number] without any difficulty. No dysarthria is noted. Motor: The strength is right lower extremity is 4+ and no hip pain while left lower extremity is mildly limited because of left hip pain (5-). Otherwise 5 over 5 throughout. Normal tone and bulk. Cerebellum: Normal finger to nose bilaterally. Sensation: Sensation is normal to touch throughout. Plantars are downgoing bilaterally. SOME OF THE WORK-UP DURING THIS HOSPITAL VISIT CONSISTED OF: Lipid panel: TG 120, Cholestrol 158, 81 and HDL 52 2D echo: Contrast is used for the study. Normal left vent size and systolic fxn. Mild to moderate mitral with mild tricuspid regurgitation. CT head: Atrophy with cronic confluent periventricular white matter ischemic changes, unchanged from recent comparison. Routine EEG is abnormal. The background slowing suggestive of mild encephalopathy. Otherwise, there is no focal slowing, epileptiform discharges o r seizure on the EEG CT angiography of the head and neck was reported as right common carotid artery is occluded at its origin extending into the internal carotid artery which and into the calvarium with reconstitution at the [place] of [place]. 50% stenosis of the left carotid bifurcation. No evidence of intracranial high-grade stenosis or intracranial aneurysm. Scattered airspace opacities throughout the long correlate for atypical pneumonia. Consider short-term follow-up in [address] chest with IV contrast to ensure resolution. Carotid duplex was reported as complete obstruction of the visualized right common carotid artery, internal carotid artery and external carotid artery. Extensive plaque in extending into the left internal carotid artery and carotid bulb. There is at least moderate stenosis at the left internal carotid artery between 50-69 based on velocity. MRI the brain is reported as no evidence of intracranial mass, acute/subacute infarct or abnormal enhancement. Dilation of the ventricles which is similar back to 02/11/2023, correlate for hydrocephalus. Nonspecific white matter changes, likely related to small vessel ischemic disease. I personally reviewed the MRI and agree with report. - Labs CBC & Chem 7: 07/24/23 10:38 07/24/23 10:38 Assessment and Plan Assessment: This is an 87-year-old with recent left facial weakness and expressive aphasia and had syncopal episode. Probable TIA. Presented with left facial droop and transient expressive aphas ia. MRI Brain is negative for acute/subacute ischemic stroke History of TIA Right common/internal carotid artery occlusion Left ICA stenosis of about 50% per CTA while on the carotid duplex is 50-69% Hist of CAD s/p stent Reported Dementia Frequent falls Plan: Patient is started on ASA 325mg curly, Plavix 75mg daily. On Lipitor 40mg qhs Continue neuro checks [employer] PT, OT and [employer] are consulted. Vascular surgery team is consulted and per vascular surgery the right common carotid external carotid internal carotid artery occlusion were reviewed by them and it felt more likely 50%. They did not feel there is indication for any vascular surgical intervention at this time. I spoke with the son and he stated they do not want any intervention and want only medical management. MRI the brain is reported as no evidence of intracranial mass, acute/subacute in farct or abnormal enhancement. Dilation of the ventricles which is similar back to 02/11/2023, correlate for hydrocephalus. Nonspecific white matter changes, likely related to small vessel ischemic disease. I personally reviewed the MRI and agree with report. Recommend following with neurologist as outpatient, likely observation (especially since patient's son stated she does not any intervention) but will defer to her neurologist as outpatient. Will defer the rest of management to the primary team. For DVT prophylaxis:Continue subq heparin 5000U every 12 hours. The plan is discussed with patient and her son who is at bedside. There is no further neurological work-up. Will sign off. Please reconsult if needed. Time with Patient: Less than 30
--- NOTE | 2023-07-27 12:39 | P.DS ---
Providers Date of admission: 07/24/23 11:30 Expected date of discharge: 07/27/23 Attending physician: Gerry Hoff MD Consults: 07/24/23 11:31 Consult Physician Routine Consulting Provider: Kassandra Castillo Consult Reason/Comments: cva Do you want consulting provider notified?: Yes 07/25/23 09:47 Consult Physician Routine Consulting Provider: Hien Tucker Consult Reason/Comments: Left ICA stenosis, extensive stenosis of carotid arteries Do you want consulting provider notified?: Yes Primary care physician: [facility] Course: * 87-year-old lady with past medical history significant for hypertension, hyperlipidemia, thyroid disorder, coronary artery disease status post stent presented to the emergency department with complaints of unable to speak. Last well-known was around 5 AM on 07/24/2023. Patient was accompanied by family. Patient was nonverbal hence EMS was called and patient was noted to have left arm weakness and left-sided facial droop at the time of presentation. When EMS evaluated later on patient was noted to have significant improvement in left arm weakness. Patient is a poor historian history obtained from chart review as well as review medical record * Patient accompanied by son-in-law who assisted with history taking, patient states she was walking at the assisted living facility for breakfast when she was noted to be minimally responsive and unable to talk * Workup initiated in ER including a CT head which was negative for acute intracranial process. CBC and serum chemistry was obtained which was essentially negative * Patient was admitted to medical floor workup done to rule out CVA * 07/25. Patient seen and examined. Currently alert and 3, answering QUESTIONS APPROPRIATELY, NO COMPLAIN OF ANY SLURRED SPEECH OR WEAKNESS OF ANY EXTREMIty * 07/26: Patient assessed at bedside alert and oriented 4 no deficit noted waiting for MRI. Echocardiogram reviewed CTA reviewed daughter at bedside * 07/27: MRI brain reviewed negative, patient remains stable, discharged home in stable condition GENERAL: The patient is alert and oriented x3, not in any acute distress. Well developed, well nourished. HEENT: Pupils are round and equally reacting to light. EOMI. No scleral icterus. No conjunctival pallor. Normocephalic, atraumatic. No pharyngeal erythema. No thyromegaly. CARDIOVASCULAR: S1 and S2 present. No murmurs, rubs, or gallops. PULMONARY: Chest is clear to auscultation, no wheezing or crackles. ABDOMEN: Soft, nontender, nondistended, normoactive bowel sounds. No palpable organomegaly. MUSCULOSKELETAL: No joint swelling or deformity. EXTREMITIES: No cyanosis, clubbing, or pedal edema. NEUROLOGICAL: Gross neurological examination did not reveal any focal deficits. SKIN: No rashes. Assessment: Assessment and plan * Expressive aphasia likely from TIA * Carotid artery stenosis * History of dementia * Coronary artery disease * Hypertension * Hyperlipidemia * In regards to expressive aphasia, CT head negative , CT angina head and neck reviewed, vascular surgery consulted. Medical management recommended. MRI brain negative for acute CVA * In regards to dysphagia, resolved continue regular diet * In regards to history of hypertension home meds to be continued once stroke ruled out * In regards to hyperlipidemia continue patient on aspirin, continue rosuvastatin * CODE STATUS discussed patient is DO NOT RESUSCITATE limited/no code * Carotids ultrasound done showed complete obstruction of the visualized right common carotid, internal carotid and external carotid arteries, extensive plaque extending the left internal carotid artery and carotid bulb * Neurology consulted Plan - Discharge Summary Discharge Rx Participant: No New Discharge Prescriptions: New Aspirin 81 mg PO DAILY 30 Days #30 tab Continue Clopidogrel [Plavix] 75 mg PO DAILY DULoxetine HCL [Cymbalta] 30 mg PO DAILY Lactobacillus Acidophilus [Acidophilus Probiotic] 1 cap PO DAILY Levothyroxine Sodium [Synthroid] 100 mcg PO AC-BRKFST Ubidecarenone [Coenzyme Q10] 50 mg PO DAILY Magnesium Hydroxide [Milk of Magnesia Concentrate] 2,400 mg PO DAILY PRN ml PRN Reason: Constipation Metoprolol Succinate (ER) [Toprol XL] 12.5 mg PO BID tab Acetaminophen Tab [Tylenol] 500 mg PO Q6HR PRN tab PRN Reason: Fever And/ Or Pain Folic Acid 1 mg PO DAILY Loperamide [Imodium] 2 mg PO QID PRN PRN Reason: Diarrhea Cholestyramine (with Sugar) [Cholestyramine Powder] 4 gm PO DAILY Thiamine [Vitamin B-1] 100 mg PO DAILY Albuterol Nebulized [Ventolin Nebulized] 2.5 mg INHALATION RT-QID Budesonide [Pulmicort] 0.5 mg INHALATION RT-BID Cyanocobalamin (Vitamin B-12) [Vitamin B-12] 1,000 mcg PO DAILY Irbesartan [Avapro] 75 mg PO HS Levocetirizine Dihydrochloride 5 mg PO HS Montelukast [Singulair] 10 mg PO HS Pantoprazole Sodium 20 mg PO DAILY Rivastigmine Tartrate [Exelon] 3 mg PO BID@0800,1700 Rosuvastatin [Crestor] 20 mg PO DAILY bisacodyL 10 mg RECTAL DAILY PRN PRN Reason: Constipation hydroCHLOROthiazide [Hydrodiuril] 25 mg PO DAILY Na Phos,M-B/Na Phos,Di-Ba [Fleet Adult] 133 ml RECTAL DAILY PRN PRN Reason: Constipation Multivitamins, Thera [Multivitamin (formulary)] 1 tab PO DAILY Sennosides/Docusate Sodium [Colace 2-in-1 Tablet] 2 tab PO DAILY PRN PRN Reason: Constipation Discharge Medication List Clopidogrel [Plavix] 75 mg PO DAILY 04/20/15 [History] Albuterol Nebulized [Ventolin Nebulized] 2.5 mg INHALATION RT-QID 11/19/22 [History] Budesonide [Pulmicort] 0.5 mg INHALATION RT-BID 11/19/22 [History] Cyanocobalamin (Vitamin B-12) [Vitamin B-12] 1,000 mcg PO DAILY 11/19/22 [History] DULoxetine HCL [Cymbalta] 30 mg PO DAILY 11/19/22 [History] Irbesartan [Avapro] 75 mg PO HS 11/19/22 [History] Lactobacillus Acidophilus [Acidophilus Probiotic] 1 cap PO DAILY 11/19/22 [History] Levocetirizine Dihydrochloride 5 mg PO HS 11/19/22 [History] Levothyroxine Sodium [Synthroid] 100 mcg PO AC-BRKFST 11/19/22 [History] Montelukast [Singulair] 10 mg PO HS 11/19/22 [History] Pantoprazole Sodium 20 mg PO DAILY 11/19/22 [History] Rivastigmine Tartrate [Exelon] 3 mg PO BID@0800,1700 11/19/22 [History] Rosuvastatin [Crestor] 20 mg PO DAILY 11/19/22 [History] Ubidecarenone [Coenzyme Q10] 50 mg PO DAILY 11/19/22 [History] Acetaminophen Tab [Tylenol] 500 mg PO Q6HR PRN tab 02/16/23 [Rx] Magnesium Hydroxide [Milk of Magnesia Concentrate] 2,400 mg PO DAILY PRN ml 02/16/23 [Rx] Metoprolol Succinate (ER) [Toprol XL] 12.5 mg PO BID tab 02/16/23 [Rx] Folic Acid 1 mg PO DAILY 06/29/23 [History] Loperamide [Imodium] 2 mg PO QID PRN 06/29/23 [History] Multivitamins, Thera [Multivitamin (formulary)] 1 tab PO DAILY 06/29/23 [History] Na Phos,M-B/Na Phos,Di-Ba [Fleet Adult] 133 ml RECTAL DAILY PRN 06/29/23 [History] bisacodyL 10 mg RECTAL DAILY PRN 06/29/23 [History] hydroCHLOROthiazide [Hydrodiuril] 25 mg PO DAILY 06/29/23 [History] Cholestyramine (with Sugar) [Cholestyramine Powder] 4 gm PO DAILY 07/24/23 [Hist ory] Sennosides/Docusate Sodium [Colace 2-in-1 Tablet] 2 tab PO DAILY PRN 07/24/23 [History] Thiamine [Vitamin B-1] 100 mg PO DAILY 07/24/23 [History] Aspirin 81 mg PO DAILY 30 Days #30 tab 07/27/23 [Rx] Follow up Appointment(s)/Referral(s): Carlo Davey MD [Primary Care Provider] - 1-2 days Discharge Disposition: HOME SELF-CARE
== END 2023-07-27 15:48 | disposition home or self-care (01) | DRG 68 ==
LOC: EC 09:50 → 3SCARD 11:30
PROVIDERS: ADMIT Internal Medicine; ATTEND Internal Medicine
DX: I65.23 Occlusion and stenosis of bilateral carotid arteries (principal); I10 Essential (primary) hypertension; R47.01 Aphasia; Z87.891 Personal history of nicotine dependence; E78.5 Hyperlipidemia, unspecified; H91.93 Unspecified hearing loss, bilateral; F03.90 Unspecified dementia, unspecified severity, without behavioral disturbance, psychotic disturbance, mood disturbance, and anxiety; R29.810 Facial weakness; Z66 Do not resuscitate; E03.9 Hypothyroidism, unspecified; I25.10 Atherosclerotic heart disease of native coronary artery without angina pectoris; Z95.5 Presence of coronary angioplasty implant and graft; I25.2 Old myocardial infarction; R29.6 Repeated falls; Z79.02 Long term (current) use of antithrombotics/antiplatelets; Z79.890 Hormone replacement therapy; Z79.899 Other long term (current) drug therapy; Z86.73 Personal history of transient ischemic attack (TIA), and cerebral infarction without residual deficits; Z88.1 Allergy status to other antibiotic agents
CPT/HCPCS: 36415; 70450; 70496; 70498; 70553; 71046; 80053; 80061; 82550; 83880; 85025; 85610; 85730; 93005; 93306; 93880; 94640; 94760; 95816; 99285